=== PATIENT | male | born 1950 | race African-American/Black ===

== ENCOUNTER → 2017-07-15 | Outpatient (CLI) | payer OTHER ==
[2015-12-26 14:22] VITALS: BP 174/86
[~2017-07-15] MED LIST: NS 250 ML IV 250 ML IV ONE
[2017-07-15 10:36] LABS: CREATININE 1.03 mg/dL (0.70-1.30)
--- NOTE | 2017-07-15 11:44 | CT ---
History: Enlarged lymph nodes Study: CT neck soft tissue with contrast Findings: [address] imaging is performed from the mid brain through the aortic arch dur ing the intravenous administration of 100 milliliters of Omnipaque 350. Coronal and sagittal reformat armani images are submitted as well. Visualized brain parenchyma and orbital contents appear normal. Pos terior nasopharyngeal soft tissues, parotid and submandibular glands are normal in appearance. No mas ses or adenopathy are seen. A left-sided permanent cardiac pacemaker is in place. Superior mediastina l structures appear normal. Moderate to advanced spondylosis of the lower cervical spine is present. Impression: Normal CT neck soft tissues. Reported By:
== END ==
LOC: RAD 10:00
PROVIDERS: ATTEND Internal Medicine
DX: R59.1 Generalized enlarged lymph nodes (principal); R93.8 Abnormal findings on diagnostic imaging of other specified body structures; E11.9 Type 2 diabetes mellitus without complications
CPT/HCPCS: 36415; 70491; 82565; 84520; A4222

== ENCOUNTER 2022-10-28 16:05 | Inpatient (IN) ==
--- NOTE | 2022-10-28 16:27 | DR.URIAD ---
HPI Time Seen Time Seen by Provider: 10/28/22 16:26 PCP Primary Care Physician: Jigar Complaint Chief Complaint Doctors Comments: 72 y/o male presents for evaluation. Pt ill x few days, + cough, low grade temp. Spouse ill with same, tested + for Covid. Pt was treated with Paxlovid (not tested). Now with decreased urination for the past 6 hours. Having some low grade temps, dry cough, mild aches. + nausea, but no vomiting. Denies diarrhea or constipation. Chief Complaint:: diag with Covid and MDstarted treating him as well without a test being done, coughing since tuesday, congestion, nausea, but denies vomiting. Patient states he has not urinated since 12p today. Self Treatment fo Chief Complaint: Palovid COVID-19 Coronavirus risk:travel/contact w/high risk person: Yes Has patient experienced Coronavirus symptoms: Yes Coronavirus symptoms experienced: Coughing Reviewed Nurses Notes Reviewed: Yes Source History Provided: Patient and Family Member Mode of Arrival Mode of Arrival: Ambulatory Timing Onset of Chief Complaint: 10/24/22 PMH PMH Past Medical History: Yes Past Medical History: Anxiety, Coronary Artery Disease, Depression, Diabetes, Dyslipidemia, GERD and Hypertension Past Medical History Comment: Pacemaker, Glaucoma Past Surgical History: Yes Surgical History: Cholecystectomy and Tonsillectomy Past Surgical History Comment: Hernia Family History History of Family Medical Conditions: Yes Family Medical History: Diabetes Mellitus and Hypertension Social History Does patient currently use any type of tobacco product: No Have you used tobacco products in the last 12 months: No Type of Tobacco Use: None Does any household member use tobacco: No Alcohol Use: None Do you use any recreational Drugs:: No Lives With: Spouse Lives Where: Home Travel Risk Coronavirus risk:travel/contact w/high risk person: Yes Has patient experienced Coronavirus symptoms: Yes Coronavirus symptoms experienced: Coughing Infectious screening In the last 2 months have you had wt loss of >10#?: NO Have you had fever, night sweats or hemotysis?: No Have you traveled outside the country in the last 6 months?: No Isolation: Droplet ROS Review of Systems Constitutional: Fever and Weakness Eyes: No Symptoms Reported ENTM: No Symptoms Reported Respiratoy: Non-Productive Cough Cardiovascular: No Symptoms Reported Gastrointestinal/Abdominal: Nausea Genitourinary: Other (decreased urination today) Neurological: No Symptoms Reported Musculoskeletal: No Symptoms Reported Integumentary: No Symptoms Reported Hematologic/Lymphatic: No Symptoms Reported Psychiatric: No Symptoms Reported All Other Systems: Reviewed and Negative PE Vital Signs Vitals: Temperature 98.5 F Pulse Rate 75 Respiratory Rate 20 Blood Pressure 141/70 O2 Sat by Pulse Oximetry 99 General General Appearance: Alert and In No Apparent Distress Eyes Eye exam: PERRL and EOMI ENT ENT Exam: Mucous Membranes Moist Neck Neck Exam: Normal Inspection Respiratory Respiratory Exam: Normal Lung Sounds Bilat; negative Accessory Muscle Use or Respiratory Distress Cardiovascular Cardiovascular Exam: Regular Rate, Normal Rhythm and Normal Heart Sounds Abdominal Exam Abdominal Exam: Normal Inspection, Normal Bowel Sounds and Soft; negative Tenderness, Guarding or Rebound Extremeties Extremities Exam: Normal Inspection and Full ROM; negative Edema Neurologic Neurological Exam: Alert, Oriented X3 and CN II-XII Intact; negative Motor Sensory Deficit Psychiatric Psychiatric Exam: Normal Affect Skin Skin Exam: Warm and Dry COURSE Treatment Treatment: 72 y/o male, with probable covid, being treated with Paxlovid (high dose). Having nausea and decreased urination. Looks good. W/u initiated. Given IV fluids, IV zofran. 1800 - Sodium low at 119. WBC low at 3K. Pt is covid +. CXR without infiltrate, has elevated left hemidiaphragm. Pt was given one time dose of bebtelovimab prior to admitting. Discussed with Dr Wade, will admit for his hyponatremia. ROR Labs Reviewed Laboratory Results Reviewed?: Yes Result Diagrams: 10/28/22 16:46 10/28/22 16:46 Laboratory: WBC 3.0 X10^3/uL (3.6-10.0) L 10/28/22 16:46 RBC 4.88 X10^6/uL (4.7-6.0) 10/28/22 16:46 Hgb 14.8 g/dL (13.5-18.0) 10/28/22 16:46 Hct 42.2 % (42.0-54.0) 10/28/22 16:46 MCV 86.5 fL (80.0-100.0) 10/28/22 16:46 MCH 30.2 pg (27.0-34.0) 10/28/22 16:46 MCHC 35.0 g/dL (33.0-35.0) 10/28/22 16:46 RDW 13.4 % (11.6-16.5) 10/28/22 16:46 Plt Count 178 X10^3/uL (150.0-450.0) 10/28/22 16:46 MPV 8.0 fL (7.4-11.0) 10/28/22 16:46 Neut % (Auto) 50.2 % (42.0-75.0) 10/28/22 16:46 Lymph % (Auto) 32.2 % (21.0-51.0) 10/28/22 16:46 [place] % (Auto) 15.9 % (0.0-13.0) H 10/28/22 16:46 Eos % (Auto) 0.5 % (0.9-2.9) L 10/28/22 16:46 Baso % (Auto) 1.2 % (0.2-1.0) H 10/28/22 16:46 Neut # (Auto) 1.5 x10^3/uL (2.2-4.8) L 10/28/22 16:46 Lymph # (Auto) 1.0 X10^3/uL (1.3-2.9) L 10/28/22 16:46 [place] # (Auto) 0.5 x10^3/uL (0.3-0.8) 10/28/22 16:46 Eos # (Auto) 0.0 x10^3/uL (0.0-0.2) 10/28/22 16:46 Baso # (Auto) 0.0 X10^3/uL (0.0-0.1) 10/28/22 16:46 Absolute Nucleated RBC 0.0 /100WBC 10/28/22 16:46 Sodium 119 mmol/L (136-145) L* 10/28/22 16:46 Corrected Sodium 120 mmol/L (136-145) L 10/28/22 16:46 Potassium 3.8 mmol/L (3.5-5.1) 10/28/22 16:46 Chloride 83 mmol/L (98-107) L 10/28/22 16:46 Carbon Dioxide 29.3 mmol/L (21-32) 10/28/22 16:46 BUN 10 mg/dL (7-18) 10/28/22 16:46 Creatinine 0.72 mg/dL (0.70-1.30) 10/28/22 16:46 Est GFR (MDRD) Af Amer > 60 (>60) 10/28/22 16:46 Est GFR (MDRD) Non-Af > 60 (>60) 10/28/22 16:46 Glucose 123 mg/dL (65-99) H 10/28/22 16:46 Calcium 8.3 mg/dL (8.5-10.1) L 10/28/22 16:46 Corrected Calcium TNP 10/28/22 16:46 Total Bilirubin 0.40 mg/dL (0.2-1.0) 10/28/22 16:46 AST 42 Units/L (15-37) H 10/28/22 16:46 ALT 57 Units/L (12-78) 10/28/22 16:46 Alkaline Phosphatase 73 Units/L (46-116) 10/28/22 16:46 Total Protein 7.1 g/dL (6.4-8.2) 10/28/22 16:46 Albumin 3.5 g/dL (3.4-5.0) 10/28/22 16:46 Globulin 3.6 g/dL (2.5-4.5) 10/28/22 16:46 Albumin/Globulin Ratio 1.0 Ratio (1.1-2.1) L 10/28/22 16:46 SARS CoV-2 RNA Rapid JEANNETTE Positive (NEGATIVE) A 10/28/22 16:56 see comments in "Course" XRAY XRAY Interpreted by: Self X-ray Results: No acute abnormalities. + mild left hemidiaphragm Opioid Opioid Risk Tool Age ([place] box if 16-45): No History of Preadolescent Sexual Abuse: No Total: 0 Total Score Risk Category: Low Risk Copyright: Rehan SHEIKH predicting aberrant behaviors Discharge Plan Diagnosis Discharge Problem: Acute hyponatremia, COVID Discharge Plan Patient Disposition: 09 ADMITTED INPATIENT Condition: Stable Orders to Discharge Patient Discharge Orders: Transfer (Routine); Ordered 10/28/22 Ordered By: Abner Gomez
[2022-10-28] MEDS ORDERED: NS 500 ML IV 500 ML IV ONE ×2 (16:37→16:38)
[2022-10-28] MEDS ORDERED: ZOFRAN INJ 4 MG VIAL IVP ONE (16:39)
[2022-10-28] MEDS ORDERED: ZOFRAN INJ 4 MG VIAL ONE (16:50)
[2022-10-28 16:59] LABS: HEMOGLOBIN 14.8 g/dL (13.5-18.0); MEAN CORPUSCULAR HEMOGLOBIN 30.2 pg (27.0-34.0); MONOCYTES # (AUTO) 0.5 x10^3/uL (0.3-0.8)
[2022-10-28 17:04] LABS: BASOPHILS % (AUTO) 1.2 % (0.2-1.0); EOSINOPHILS % (AUTO) 0.5 % (0.9-2.9); HEMATOCRIT 42.2 % (42.0-54.0); LYMPHOCYTES % (AUTO) 32.2 % (21.0-51.0); MEAN CORPUSCULAR VOLUME 86.5 fL (80.0-100.0); MONOCYTES % (AUTO) 15.9 % (0.0-13.0); NEUTROPHILS # (AUTO) 1.5 x10^3/uL (2.2-4.8); NEUTROPHILS % (AUTO) 50.2 % (42.0-75.0); RED BLOOD COUNT 4.88 X10^6/uL (4.7-6.0); RED CELL DISTRIBUTION WIDTH 13.4 % (11.6-16.5)
[2022-10-28 17:09] LABS: ALANINE AMINOTRANSFERASE 57 Units/L (12-78); ALBUMIN 3.5 g/dL (3.4-5.0); ALKALINE PHOSPHATASE 73 Units/L (46-116); ASPARTATE AMINO TRANSFERASE 42 Units/L (15-37); BLOOD UREA NITROGEN 10 mg/dL (7-18); CALCIUM 8.3 mg/dL (8.5-10.1); CARBON DIOXIDE 29.3 mmol/L (21-32); CHLORIDE 83 mmol/L (98-107); COR NA(FOR HYPERGLY) 120 mmol/L (136-145); CREATININE 0.72 mg/dL (0.70-1.30); TOTAL PROTEIN 7.1 g/dL (6.4-8.2); eGFR NON BLACK RACES > 60 (>60)
[2022-10-28 17:12] LABS: SODIUM 119 mmol/L (136-145)
[2022-10-28] MEDS ORDERED: BEBTELOVIMAB INJ ONE (17:56)
[2022-10-28] MEDS: BEBTELOVIMAB INJ IVP ONE ×2 (18:03→18:04)
[2022-10-28] MEDS ORDERED: ULTRAM PO PRN (18:23)
[2022-10-28] MEDS ORDERED: NORCO 10/325 TAB PO PRN (18:23)
--- NOTE | 2022-10-28 18:36 | RAD ---
HISTORY:Cough, congestion, COVID-19 exposureStudy: Single view chestComparison:NoneFindings:No infiltrate, effusion, or pneumothorax identified .Cardiac and mediastinal contours are within normal limits .The soft tissues are intact .IMPRESSION:1.No acute cardiopulmonary abnormality.Electronically signed by: COLLETTE ACOSTA (Oct 28, 2022 18:35:47)
[2022-10-28] MEDS ORDERED: NS 1,000 ML IV 1,000 ML ONE (18:48)
[2022-10-28] MEDS: NS 1,000 ML IV 1,000 ML IV SCH (18:53)
[2022-10-28] MEDS ORDERED: RESTORIL CAP 30 MG PO SCH (21:00)
[2022-10-28] MEDS ORDERED: HYDROCHLOROTHIAZIDE 25 MG TAB PO SCH (21:00)
[2022-10-28] MEDS: REQUIP PO SCH (21:23)
[2022-10-28] MEDS: BENICAR TAB 40 MG PO SCH (21:24)
[2022-10-28] MEDS: PROCARDIA XL 24-hr PO SCH (21:24)
[2022-10-28] MEDS: CARAFATE PO SCH (21:25)
[2022-10-28] MEDS: REGLAN TAB 10 MG PO SCH (21:25)
[2022-10-28] MEDS: LANTUS SC SCH (21:26)
[2022-10-28] MEDS: GLUCOPHAGE PO SCH (21:35)
[2022-10-28] MEDS: XALATAN OP SCH (21:35)
[2022-10-28] MEDS ORDERED: RESTORIL CAP 15 MG PO ONE (21:51)
[2022-10-28] MEDS: ALPHAGAN 0.2% OPHTH SOLN OP SCH (21:57)
[2022-10-28 23:58] VITALS: BMI 27.1
[2022-10-29] MEDS: CARAFATE PO SCH ×4 (05:52→20:51)
[2022-10-29 06:24] LABS: BASOPHILS % (AUTO) 0.7 % (0.2-1.0); EOSINOPHILS % (AUTO) 0.8 % (0.9-2.9); HEMATOCRIT 41.2 % (42.0-54.0); HEMOGLOBIN 14.4 g/dL (13.5-18.0); LYMPHOCYTES # (AUTO) 1.3 X10^3/uL (1.3-2.9); LYMPHOCYTES % (AUTO) 37.2 % (21.0-51.0); MEAN CORPUSCULAR HEMOGLOBIN 29.9 pg (27.0-34.0); MEAN CORPUSCULAR HGB CONC 34.8 g/dL (33.0-35.0); MEAN PLATELET VOLUME 8.4 fL (7.4-11.0); MONOCYTES # (AUTO) 0.6 x10^3/uL (0.3-0.8); MONOCYTES % (AUTO) 16.9 % (0.0-13.0); NEUTROPHILS # (AUTO) 1.6 x10^3/uL (2.2-4.8); NEUTROPHILS % (AUTO) 44.4 % (42.0-75.0); RED BLOOD COUNT 4.79 X10^6/uL (4.7-6.0); RED CELL DISTRIBUTION WIDTH 13.3 % (11.6-16.5); WHITE BLOOD COUNT 3.5 X10^3/uL (3.6-10.0)
[2022-10-29 06:31] LABS: ALANINE AMINOTRANSFERASE 49 Units/L (12-78); ALBUMIN 3.2 g/dL (3.4-5.0); ALKALINE PHOSPHATASE 68 Units/L (46-116); ASPARTATE AMINO TRANSFERASE 35 Units/L (15-37); BLOOD UREA NITROGEN 8 mg/dL (7-18); CALCIUM 8.1 mg/dL (8.5-10.1); CARBON DIOXIDE 28.3 mmol/L (21-32); CHLORIDE 86 mmol/L (98-107); COR CA(FOR HYPOALB) 8.7 mg/dL (8.5-10.1); CREATININE 0.68 mg/dL (0.70-1.30); TOTAL PROTEIN 6.6 g/dL (6.4-8.2); eGFR NON BLACK RACES > 60 (>60)
[2022-10-29 06:51] LABS: SODIUM 120 mmol/L (136-145)
[2022-10-29] MEDS ORDERED: GLUCOPHAGE ONE (08:11)
[2022-10-29] MEDS ORDERED: SODIUM CHL HYPERTONIC ** 3% ** 500 ML IV ONE (09:00)
[2022-10-29] MEDS: NS 1,000 ML IV 1,000 ML IV SCH (09:13)
[2022-10-29] MEDS: ALPHAGAN 0.2% OPHTH SOLN OP SCH ×3 (09:14→20:52)
[2022-10-29] MEDS: WELLBUTRIN XL 300 MG (DAILY) PO SCH (09:27)
[2022-10-29] MEDS: BENICAR TAB 40 MG PO SCH ×2 (09:27→20:48)
[2022-10-29] MEDS: PROCARDIA XL 24-hr PO SCH ×2 (09:28→20:50)
[2022-10-29] MEDS: XANAX PO SCH (09:28)
[2022-10-29] MEDS: FLOMAX PO SCH (09:28)
[2022-10-29] MEDS: CARDURA PO SCH (09:28)
[2022-10-29] MEDS: LANTUS SC SCH ×2 (09:28→20:54)
[2022-10-29] MEDS: PriLOSEC PO SCH (09:28)
[2022-10-29] MEDS: FOLIC ACID TAB 1 MG PO SCH (09:28)
[2022-10-29] MEDS: CHRONULAC PO SCH (09:29)
[2022-10-29] MEDS: CATAPRES-TTS-3 TD SCH (10:10)
[2022-10-29] MEDS: GLUCOPHAGE PO SCH ×2 (10:11→20:51)
[2022-10-29] MEDS: NEBIVOLOL 20 MG PO SCH (10:11)
[2022-10-29] MEDS: RESTORIL CAP 15 MG PO SCH (20:49)
[2022-10-29] MEDS: REQUIP PO SCH (20:49)
[2022-10-29] MEDS: REGLAN TAB 10 MG PO SCH (20:50)
[2022-10-29] MEDS: XALATAN OP SCH (20:52)
[2022-10-30] MEDS: CARAFATE PO SCH ×4 (05:37→21:01)
[2022-10-30 06:32] LABS: BASOPHILS % (AUTO) 0.8 % (0.2-1.0); EOSINOPHILS % (AUTO) 0.7 % (0.9-2.9); HEMATOCRIT 41.2 % (42.0-54.0); HEMOGLOBIN 14.2 g/dL (13.5-18.0); LYMPHOCYTES % (AUTO) 32.9 % (21.0-51.0); MEAN CORPUSCULAR HEMOGLOBIN 30.2 pg (27.0-34.0); MEAN CORPUSCULAR HGB CONC 34.4 g/dL (33.0-35.0); MEAN CORPUSCULAR VOLUME 87.8 fL (80.0-100.0); MEAN PLATELET VOLUME 8.3 fL (7.4-11.0); MONOCYTES # (AUTO) 0.6 x10^3/uL (0.3-0.8); MONOCYTES % (AUTO) 18.7 % (0.0-13.0); NEUTROPHILS # (AUTO) 1.5 x10^3/uL (2.2-4.8); NEUTROPHILS % (AUTO) 46.9 % (42.0-75.0); RED BLOOD COUNT 4.69 X10^6/uL (4.7-6.0); RED CELL DISTRIBUTION WIDTH 13.3 % (11.6-16.5); WHITE BLOOD COUNT 3.1 X10^3/uL (3.6-10.0)
[2022-10-30 06:52] LABS: ALANINE AMINOTRANSFERASE 43 Units/L (12-78); ALBUMIN 3.1 g/dL (3.4-5.0); ALKALINE PHOSPHATASE 62 Units/L (46-116); ASPARTATE AMINO TRANSFERASE 31 Units/L (15-37); BLOOD UREA NITROGEN 11 mg/dL (7-18); CARBON DIOXIDE 25.2 mmol/L (21-32); CHLORIDE 92 mmol/L (98-107); COR CA(FOR HYPOALB) 8.7 mg/dL (8.5-10.1); CREATININE 0.61 mg/dL (0.70-1.30); TOTAL PROTEIN 6.2 g/dL (6.4-8.2); eGFR NON BLACK RACES > 60 (>60)
[2022-10-30 06:57] LABS: SODIUM 125 mmol/L (136-145)
[2022-10-30] MEDS ORDERED: GLUCOPHAGE ONE ×2 (08:16→20:40)
[2022-10-30] MEDS: NEBIVOLOL 20 MG PO SCH (08:52)
[2022-10-30] MEDS: GLUCOPHAGE PO SCH (09:26)
[2022-10-30] MEDS: PriLOSEC PO SCH (09:31)
[2022-10-30] MEDS: PROCARDIA XL 24-hr PO SCH ×2 (09:31→21:01)
[2022-10-30] MEDS: FLOMAX PO SCH (09:31)
[2022-10-30] MEDS: CHRONULAC PO SCH (09:31)
[2022-10-30] MEDS: BENICAR TAB 40 MG PO SCH ×2 (09:31→21:00)
[2022-10-30] MEDS: WELLBUTRIN XL 300 MG (DAILY) PO SCH (09:31)
[2022-10-30] MEDS: XANAX PO SCH (09:31)
[2022-10-30] MEDS: CARDURA PO SCH (09:32)
[2022-10-30] MEDS: FOLIC ACID TAB 1 MG PO SCH (09:32)
[2022-10-30] MEDS: ALPHAGAN 0.2% OPHTH SOLN OP SCH ×2 (09:32→21:04)
[2022-10-30] MEDS: LANTUS SC SCH ×2 (09:32→21:02)
[2022-10-30] MEDS: CATAPRES-TTS-3 TD SCH (09:53)
[2022-10-30] MEDS: NS 1,000 ML IV 1,000 ML IV SCH ×3 (10:21→21:06)
--- NOTE | 2022-10-30 11:33 | DR.H&P ---
H&P History & Physical for Day of: H&P Date: 10/29/22 Chief Complaint Chief Complaint: Cough, fever, Decreased appetite Weakness Allergies Allergies Allergy/AdvReac Type Severity Reaction Status Date / Time MS Penicillins [Penicillins] Allergy Verified 10/29/22 11:18 MS Sulfur [Sulfur] Allergy Verified 10/29/22 11:18 Penicillins Allergy Verified 10/29/22 11:18 Sulfa (Sulfonamide Allergy Verified 10/29/22 11:18 Antibiotics) [SULFA] History of Present Illness History of Present Illness: Pt is a 72 year old male presenting after having [facility] outpatient treatment for COVID-19. He reports cough, low grade temp, decreased appetite, and generalized weakness. He admits to decreased fluid intake and had decreased urination for the past 6 hours. Denies abdominal pain vomiting, diarrhea, or constipation. He was taking paxlovid with improvement in symptoms. Labs/imaging: Wbc 3.5, Hgb 14.4, Plt 178, Na 120, K 3.6, Creatinine 0.68, Glucose 104, CXR: no acute cardiopulmonary findings. Pt admitted for COVID-19, hyponatremia, dehydration. Will give monoclonal antibody infusion and start on IVF NS@80ml/h. Restart home medications. Continue to closely monitor and follow up labs in the morning. Past Medical History Past Medical History: Anxiety, Coronary Artery Disease, Depression, Diabetes, Dyslipidemia, GERD and Hypertension Past Surgical History Surgical History: Cholecystectomy, Tonsillectomy and Other Family History Family Medical History: Diabetes Mellitus and Hypertension Social History Does patient currently use any type of tobacco product: No Have you used tobacco products in the last 12 months: No Type of Tobacco Use: None Does any household member use tobacco: No Alcohol Use: None Drug Use: None Medications Home Medications: MS Penicillins [Penicillins] Allergy (Verified 10/29/22 11:18) MS Sulfur [Sulfur] Allergy (Verified 10/29/22 11:18) Penicillins Allergy (Verified 10/29/22 11:18) Sulfa (Sulfonamide Antibiotics) [SULFA] Allergy (Verified 10/29/22 11:18) CONTINUE taking the following medications alprazolam 0.25 mg tablet 1 tab PO QDAY 10/28/22 [History] brimonidine 0.2 % eye drops 1 drp ophthalmic (eye) BID 10/28/22 [History] bupropion HCl 300 mg 24 hr tablet, extended release 1 tab PO QDAY 10/28/22 [History] clonidine 0.3 mg/24 hr weekly transdermal patch 1 patch QWEEK 10/28/22 [History] cyanocobalamin (vitamin B-12) 1,000 mcg/mL injection solution 1 ml IM QWEEK 10/28/22 [History] doxazosin 2 mg tablet 1 tab PO QDAY 10/28/22 [History] folic acid 1 mg tablet 1 tab PO QDAY 10/28/22 [History] hydrocodone 10 mg-acetaminophen 325 mg tablet 1 tab PO QID PRN pain 10/28/22 [History] insulin glargine 100 unit/mL (3 mL) subcutaneous pen (Lantus Solostar U-100 Insulin) 30 unit subcut BID 10/28/22 [History] lactulose 10 gram/15 mL oral solution 45 ml PO QDAY 10/28/22 [History] latanoprost 0.005 % eye drops 1 drp ophthalmic (eye) QPM 10/28/22 [History] metformin 500 mg tablet 1 tab PO BID 10/28/22 [History] metoclopramide HCl 10 mg tablet 1 tab PO QPM 10/28/22 [History] nebivolol 20 mg tablet 1 tab PO QDAY 10/28/22 [History] nifedipine 60 mg tablet,extended release 1 tab PO BID 10/28/22 [History] nirmatrelvir 300 mg (150 mg x2)-ritonavir 100 mg tablet,dose pack(EUA) (Paxlo vid) 3 tab PO BID 10/28/22 [History] olmesartan 40 mg-hydrochlorothiazide 25 mg tablet 1 tab PO BID 10/28/22 [History] omeprazole 40 mg capsule,delayed release 1 cap PO QDAY 10/28/22 [History] ropinirole 1 mg tablet 1 - 2 tab PO QPM 10/28/22 [History] semaglutide 1 mg/dose (4 mg/3 mL) subcutaneous pen injector (Ozempic) 1 mg subcut QWEEK 10/28/22 [History] sucralfate 1 gram tablet 0.5 tab PO QID 10/28/22 [History] tamsulosin 0.4 mg capsule 1 cap PO QDAY 10/28/22 [History] temazepam 30 mg capsule 1 cap PO QPM 10/28/22 [History] tramadol 50 mg tablet 1 tab PO QDAY PRN 10/28/22 [History] Labs Result Diagrams: 10/30/22 05:30 10/30/22 05:30 Labs: Laboratory WBC 3.1 X10^3/uL (3.6-10.0) L 10/30/22 05:30 RBC 4.69 X10^6/uL (4.7-6.0) L 10/30/22 05:30 Hgb 14.2 g/dL (13.5-18.0) 10/30/22 05:30 Hct 41.2 % (42.0-54.0) L 10/30/22 05:30 MCV 87.8 fL (80.0-100.0) 10/30/22 05:30 MCH 30.2 pg (27.0-34.0) 10/30/22 05:30 MCHC 34.4 g/dL (33.0-35.0) 10/30/22 05:30 RDW 13.3 % (11.6-16.5) 10/30/22 05:30 Plt Count 169 X10^3/uL (150.0-450.0) 10/30/22 05:30 MPV 8.3 fL (7.4-11.0) 10/30/22 05:30 Neut % (Auto) 46.9 % (42.0-75.0) 10/30/22 05:30 Lymph % (Auto) 32.9 % (21.0-51.0) 10/30/22 05:30 [place] % (Auto) 18.7 % (0.0-13.0) H 10/30/22 05:30 Eos % (Auto) 0.7 % (0.9-2.9) L 10/30/22 05:30 Baso % (Auto) 0.8 % (0.2-1.0) 10/30/22 05:30 Neut # (Auto) 1.5 x10^3/uL (2.2-4.8) L 10/30/22 05:30 Lymph # (Auto) 1.0 X10^3/uL (1.3-2.9) L 10/30/22 05:30 [place] # (Auto) 0.6 x10^3/uL (0.3-0.8) 10/30/22 05:30 Eos # (Auto) 0.0 x10^3/uL (0.0-0.2) 10/30/22 05:30 Baso # (Auto) 0.0 X10^3/uL (0.0-0.1) 10/30/22 05:30 Absolute Nucleated RBC 0.1 /100WBC 10/30/22 05:30 Sodium 125 mmol/L (136-145) L* 10/30/22 05:30 Corrected Sodium TNP 10/30/22 05:30 Potassium 3.6 mmol/L (3.5-5.1) 10/30/22 05:30 Chloride 92 mmol/L (98-107) L 10/30/22 05:30 Carbon Dioxide 25.2 mmol/L (21-32) 10/30/22 05:30 BUN 11 mg/dL (7-18) 10/30/22 05:30 Creatinine 0.61 mg/dL (0.70-1.30) L 10/30/22 05:30 Est GFR (MDRD) Af Amer > 60 (>60) 10/30/22 05:30 Est GFR (MDRD) Non-Af > 60 (>60) 10/30/22 05:30 Glucose 80 mg/dL (65-99) 10/30/22 05:30 POC Glucose (mg/dL) 112 mg/dL (65-99) H 10/29/22 05:39 Calcium 8.0 mg/dL (8.5-10.1) L 10/30/22 05:30 Corrected Calcium 8.7 mg/dL (8.5-10.1) 10/30/22 05:30 Total Bilirubin 0.30 mg/dL (0.2-1.0) 10/30/22 05:30 AST 31 Units/L (15-37) 10/30/22 05:30 ALT 43 Units/L (12-78) 10/30/22 05:30 Alkaline Phosphatase 62 Units/L (46-116) 10/30/22 05:30 Total Protein 6.2 g/dL (6.4-8.2) L 10/30/22 05:30 Albumin 3.1 g/dL (3.4-5.0) L 10/30/22 05:30 Globulin 3.1 g/dL (2.5-4.5) 10/30/22 05:30 Albumin/Globulin Ratio 1.0 Ratio (1.1-2.1) L 10/30/22 05:30 SARS CoV-2 RNA Rapid JEANNETTE Positive (NEGATIVE) A 10/28/22 16:56 Review of Systems Constitutional: Fever, Chills and Weakness Eyes: No Symptoms Reported ENT: No Symptoms Reported Respiratory: Cough Cardiovascular: No Symptoms Reported Gastrointestinal: No Symptoms Reported Genitourinary: No Symptoms Reported Musculoskeletal: No Symptoms Reported Skin: No Symptoms Reported Neurological: No Symptoms Reported Physical Exam Vital Signs: Temperature 97.9 F Pulse Rate [Radial] 78 Pulse Rate 74 Respiratory Rate 18 Blood Pressure [Left Arm] 127/59 Blood Pressure 141/70 O2 Sat by Pulse Oximetry 99 Oriented: Normal Eyes: Normal Ear: Normal Nose: Normal Throat: Normal Respiratory: Clear Throughout Cardiovascular: Normal : Normal Auscultation: Bowel Sounds: Normal Palpation: Normal Tenderness: Normal Skin: Normal Musculoskeletal: Normal Psychiatric: Normal Mood Description: Calm and Appropriate Affect: Normal Speech Pattern: Clear and Appropriate Assessment/Plan (1) COVID: Status: Acute (2) Acute hyponatremia: Status: Acute (3) Dehydration: Status: Acute Review H&P Reviewed: Yes Patient was examined?: Yes
--- NOTE | 2022-10-30 11:49 | PCM.PROG ---
Progress Note Progress Note for Day of Date of Exam: 10/30/22 Subjective Subjective: Pt is a 72 year old male admitted after failing outpatient treatment for COVID-19, with hyponatremia and dehydration. This morning he reports improvement in his symptoms. No acute events overnight. He received monoclonal antibody infusion yesterday. Labs/imaging: Wbc 3.1, Hgb 14.2, Plt 169, Na 125, K 3.6, Creatinine 0.61, Glucose 80, CXR: no acute cardiopulmonary findings. Hyponatremia gradually improving and patient appetite has improved. Will increase IVF NS to 125ml/h. Home medications have been resumed. Otherwise will continue with current treatment plan. Continue to closely monitor and follow up labs in the morning. Past Medical Family Social History Allergies: Allergies MS Penicillins [Penicillins] Allergy (Verified 10/29/22 11:18) MS Sulfur [Sulfur] Allergy (Verified 10/29/22 11:18) Penicillins Allergy (Verified 10/29/22 11:18) Sulfa (Sulfonamide Antibiotics) [SULFA] Allergy (Verified 10/29/22 11:18) Review of Systems ROS: No change since H&P Vital Signs and I&O's Vital Signs: Temperature 97.9 F Pulse Rate [Radial] 78 Pulse Rate 74 Respiratory Rate 18 Blood Pressure [Left Arm] 127/59 Blood Pressure 141/70 O2 Sat by Pulse Oximetry 99 Intake and Output: Intake & Output 10/27/22 10/28/22 10/29/22 10/30/22 23:59 23:59 23:59 23:59 Intake Total 480 / 480 2089 1110 / 1110 Balance 480 / 480 2089 1110 / 1110 Physical Exam Oriented: Normal Eyes: Normal Ear: Normal Nose: Normal Throat: Normal Cardiovascular: Normal : Normal Auscultation: Bowel Sounds: Normal Tenderness: Normal Skin: Normal Musculoskeletal: Normal Psychiatric: Normal Mood Description: Calm and Appropriate Affect: Normal Speech Pattern: Clear and Appropriate Laboratory and Diagnostics Result Diagrams: 10/30/22 05:30 10/30/22 05:30 Labs: Laboratory WBC 3.1 X10^3/uL (3.6-10.0) L 10/30/22 05:30 RBC 4.69 X10^6/uL (4.7-6.0) L 10/30/22 05:30 Hgb 14.2 g/dL (13.5-18.0) 10/30/22 05:30 Hct 41.2 % (42.0-54.0) L 10/30/22 05:30 MCV 87.8 fL (80.0-100.0) 10/30/22 05:30 MCH 30.2 pg (27.0-34.0) 10/30/22 05:30 MCHC 34.4 g/dL (33.0-35.0) 10/30/22 05:30 RDW 13.3 % (11.6-16.5) 10/30/22 05:30 Plt Count 169 X10^3/uL (150.0-450.0) 10/30/22 05:30 MPV 8.3 fL (7.4-11.0) 10/30/22 05:30 Neut % (Auto) 46.9 % (42.0-75.0) 10/30/22 05:30 Lymph % (Auto) 32.9 % (21.0-51.0) 10/30/22 05:30 [place] % (Auto) 18.7 % (0.0-13.0) H 10/30/22 05:30 Eos % (Auto) 0.7 % (0.9-2.9) L 10/30/22 05:30 Baso % (Auto) 0.8 % (0.2-1.0) 10/30/22 05:30 Neut # (Auto) 1.5 x10^3/uL (2.2-4.8) L 10/30/22 05:30 Lymph # (Auto) 1.0 X10^3/uL (1.3-2.9) L 10/30/22 05:30 [place] # (Auto) 0.6 x10^3/uL (0.3-0.8) 10/30/22 05:30 Eos # (Auto) 0.0 x10^3/uL (0.0-0.2) 10/30/22 05:30 Baso # (Auto) 0.0 X10^3/uL (0.0-0.1) 10/30/22 05:30 Absolute Nucleated RBC 0.1 /100WBC 10/30/22 05:30 Sodium 125 mmol/L (136-145) L* 10/30/22 05:30 Corrected Sodium TNP 10/30/22 05:30 Potassium 3.6 mmol/L (3.5-5.1) 10/30/22 05:30 Chloride 92 mmol/L (98-107) L 10/30/22 05:30 Carbon Dioxide 25.2 mmol/L (21-32) 10/30/22 05:30 BUN 11 mg/dL (7-18) 10/30/22 05:30 Creatinine 0.61 mg/dL (0.70-1.30) L 10/30/22 05:30 Est GFR (MDRD) Af Amer > 60 (>60) 10/30/22 05:30 Est GFR (MDRD) Non-Af > 60 (>60) 10/30/22 05:30 Glucose 80 mg/dL (65-99) 10/30/22 05:30 POC Glucose (mg/dL) 112 mg/dL (65-99) H 10/29/22 05:39 Calcium 8.0 mg/dL (8.5-10.1) L 10/30/22 05:30 Corrected Calcium 8.7 mg/dL (8.5-10.1) 10/30/22 05:30 Total Bilirubin 0.30 mg/dL (0.2-1.0) 10/30/22 05:30 AST 31 Units/L (15-37) 10/30/22 05:30 ALT 43 Units/L (12-78) 10/30/22 05:30 Alkaline Phosphatase 62 Units/L (46-116) 10/30/22 05:30 Total Protein 6.2 g/dL (6.4-8.2) L 10/30/22 05:30 Albumin 3.1 g/dL (3.4-5.0) L 10/30/22 05:30 Globulin 3.1 g/dL (2.5-4.5) 10/30/22 05:30 Albumin/Globulin Ratio 1.0 Ratio (1.1-2.1) L 10/30/22 05:30 SARS CoV-2 RNA Rapid JEANNETTE Positive (NEGATIVE) A 10/28/22 16:56 Plan (1) COVID: Status: Acute (2) Acute hyponatremia: Status: Acute (3) Dehydration: Status: Acute
[2022-10-30] MEDS: REGLAN TAB 10 MG PO SCH (21:00)
[2022-10-30] MEDS: RESTORIL CAP 15 MG PO SCH (21:00)
[2022-10-30] MEDS: REQUIP PO SCH (21:00)
[2022-10-30] MEDS: XALATAN OP SCH (21:05)
[2022-10-31] MEDS: GLUCOPHAGE PO SCH ×2 (03:38→10:41)
[2022-10-31] MEDS: NS 1,000 ML IV 1,000 ML IV SCH ×2 (03:38→05:46)
[2022-10-31 05:44] LABS: BASOPHILS % (AUTO) 0.8 % (0.2-1.0); EOSINOPHILS % (AUTO) 0.2 % (0.9-2.9); HEMATOCRIT 41.3 % (42.0-54.0); HEMOGLOBIN 14.3 g/dL (13.5-18.0); LYMPHOCYTES # (AUTO) 0.6 X10^3/uL (1.3-2.9); LYMPHOCYTES % (AUTO) 17.6 % (21.0-51.0); MEAN CORPUSCULAR HGB CONC 34.6 g/dL (33.0-35.0); MEAN CORPUSCULAR VOLUME 86.8 fL (80.0-100.0); MEAN PLATELET VOLUME 7.9 fL (7.4-11.0); MONOCYTES # (AUTO) 0.4 x10^3/uL (0.3-0.8); MONOCYTES % (AUTO) 11.7 % (0.0-13.0); NEUTROPHILS # (AUTO) 2.5 x10^3/uL (2.2-4.8); NEUTROPHILS % (AUTO) 69.7 % (42.0-75.0); RED BLOOD COUNT 4.75 X10^6/uL (4.7-6.0); RED CELL DISTRIBUTION WIDTH 13.4 % (11.6-16.5); WHITE BLOOD COUNT 3.5 X10^3/uL (3.6-10.0)
[2022-10-31] MEDS: CARAFATE PO SCH (05:45)
[2022-10-31 05:58] LABS: ALANINE AMINOTRANSFERASE 45 Units/L (12-78); ALKALINE PHOSPHATASE 61 Units/L (46-116); ASPARTATE AMINO TRANSFERASE 26 Units/L (15-37); BLOOD UREA NITROGEN 7 mg/dL (7-18); CALCIUM 7.7 mg/dL (8.5-10.1); CARBON DIOXIDE 27.8 mmol/L (21-32); CHLORIDE 98 mmol/L (98-107); COR CA(FOR HYPOALB) 8.5 mg/dL (8.5-10.1); CREATININE 0.56 mg/dL (0.70-1.30); SODIUM 132 mmol/L (136-145); TOTAL PROTEIN 6.1 g/dL (6.4-8.2); eGFR NON BLACK RACES > 60 (>60)
[2022-10-31] MEDS: PROCARDIA XL 24-hr PO SCH (08:36)
[2022-10-31] MEDS: XANAX PO SCH (08:36)
[2022-10-31] MEDS: PriLOSEC PO SCH (08:36)
[2022-10-31] MEDS: CARDURA PO SCH (08:36)
[2022-10-31] MEDS: FOLIC ACID TAB 1 MG PO SCH (08:36)
[2022-10-31] MEDS: BENICAR TAB 40 MG PO SCH (08:36)
[2022-10-31] MEDS: FLOMAX PO SCH (08:36)
[2022-10-31] MEDS: LANTUS SC SCH (08:37)
[2022-10-31] MEDS: WELLBUTRIN XL 300 MG (DAILY) PO SCH (08:37)
[2022-10-31] MEDS: NEBIVOLOL 20 MG PO SCH (08:39)
[2022-10-31] MEDS: CHRONULAC PO SCH (08:40)
[2022-10-31] MEDS: ALPHAGAN 0.2% OPHTH SOLN OP SCH (08:46)
[2022-10-31 10:02] VITALS: BP 178/79
--- NOTE | 2022-10-31 11:02 | W.DIS.FURT ---
Summary of Discharge Discharge Summary of Date Date of Exam: 10/31/22 Admission Date Date of Admission: 10/28/22 Admission Diagnosis Patient Problems (Updated 10/29/22 @ 11:18 by Jessica Thomas) Gastroenteritis (Acute) K52.9 Nausea & vomiting (Acute) R11.2 Hospital Course: Pt is a 72 year old male admitted after failing outpatient treatment for COVID- 19, with hyponatremia and dehydration. His hospital/treatment course included:receiving monoclonal antibody infusion, IVF NS to 125 ml/h, and home medications. Labs/imaging: Wbc 3.5, Hgb 14.3, Plt 177, Na 132, K 3.5, Creatinine 0.56, Glucose 55, CXR: no acute cardiopulmonary findings. Hyponatremia significantly improved close to normal range. Strength and appetite back to normal. Pt discharged in stable condition. Instructed to follow up with pcp in 1 week. Vital Signs: Vital Signs (72 hours) 10/28/22 16:07 10/28/22 18:24 10/28/22 20:00 Temperature 98.5 F 98.5 F Pulse Rate 75 Pulse Rate [Radial] Respiratory Rate 20 20 20 Blood Pressure 141/70 Blood Pressure [Left Arm] 158/74 O2 Sat by Pulse Oximetry 99 96 Oxygen Delivery Method Room Air Oxygen Flow Rate FIO2% 10/28/22 20:00 10/28/22 20:30 10/29/22 00:04 Temperature 98.5 F Pulse Rate Pulse Rate [Radial] Respiratory Rate 20 Blood Pressure Blood Pressure [Left Arm] 158/74 O2 Sat by Pulse Oximetry 96 Oxygen Delivery Method Room Air Nasal Cannula Oxygen Flow Rate 2 FIO2% 28 10/29/22 00:00 10/29/22 04:00 10/29/22 09:12 Temperature 98.3 F 98.3 F Pulse Rate Pulse Rate [Radial] Respiratory Rate 20 20 Blood Pressure Blood Pressure [Left Arm] 133/65 127/69 O2 Sat by Pulse Oximetry 97 99 Oxygen Delivery Method Nasal Cannula Nasal Cannula Oxygen Flow Rate 2 2 FIO2% 28 10/29/22 09:12 10/29/22 07:00 10/29/22 08:00 Temperature 97.9 F Pulse Rate 70 Pulse Rate [Radial] 70 Respiratory Rate 20 Blood Pressure Blood Pressure [Left Arm] 132/64 O2 Sat by Pulse Oximetry 97 99 Oxygen Delivery Method Room Air Nasal Cannula Oxygen Flow Rate 2 FIO2% 10/29/22 12:00 10/29/22 16:00 10/29/22 19:00 Temperature 98.3 F 98.4 F Pulse Rate Pulse Rate [Radial] 84 86 Respiratory Rate 18 20 Blood Pressure Blood Pressure [Left Arm] 124/60 136/68 O2 Sat by Pulse Oximetry 100 100 Oxygen Delivery Method Nasal Cannula Nasal Cannula Nasal Cannula Oxygen Flow Rate 2 2 FIO2% 10/29/22 20:08 10/29/22 20:08 10/29/22 20:00 Temperature 98.1 F Pulse Rate 74 Pulse Rate [Radial] 75 Respiratory Rate 20 Blood Pressure Blood Pressure [Left Arm] 112/53 O2 Sat by Pulse Oximetry 96 99 Oxygen Delivery Method Nasal Cannula Nasal Cannula Oxygen Flow Rate 2 2 FIO2% 28 10/30/22 00:00 10/30/22 04:00 10/30/22 08:00 Temperature 97.8 F 97.5 F L 97.9 F Pulse Rate Pulse Rate [Radial] 77 77 78 Respiratory Rate 18 18 18 Blood Pressure Blood Pressure [Left Arm] 130/60 124/58 127/59 O2 Sat by Pulse Oximetry 100 100 99 Oxygen Delivery Method Nasal Cannula Nasal Cannula Nasal Cannula Oxygen Flow Rate 2 2 2 FIO2% 10/30/22 07:00 10/30/22 09:35 10/30/22 12:00 Temperature 97.7 F Pulse Rate Pulse Rate [Radial] 78 Respiratory Rate 18 Blood Pressure Blood Pressure [Left Arm] 132/61 O2 Sat by Pulse Oximetry 99 Oxygen Delivery Method Nasal Cannula Nasal Cannula Nasal Cannula Oxygen Flow Rate 2 2 2 FIO2% 28 10/30/22 15:58 10/30/22 17:49 10/30/22 19:00 Temperature 98.3 F Pulse Rate Pulse Rate [Radial] 78 Respiratory Rate 18 Blood Pressure Blood Pressure [Left Arm] 129/62 O2 Sat by Pulse Oximetry 99 Oxygen Delivery Method Nasal Cannula Nasal Cannula Nasal Cannula Oxygen Flow Rate 2 2 2 FIO2% 28 10/30/22 20:00 10/31/22 00:00 10/31/22 04:00 Temperature 98.5 F 98.4 F 97.9 F Pulse Rate Pulse Rate [Radial] 85 83 78 Respiratory Rate 20 20 18 Blood Pressure Blood Pressure [Left Arm] 135/66 128/58 136/62 O2 Sat by Pulse Oximetry 99 99 99 Oxygen Delivery Method Nasal Cannula Nasal Cannula Nasal Cannula Oxygen Flow Rate 2 2 2 FIO2% 10/31/22 07:00 10/31/22 08:00 Temperature 98.0 F Pulse Rate Pulse Rate [Radial] 106 H Respiratory Rate 20 Blood Pressure Blood Pressure [Left Arm] 178/79 O2 Sat by Pulse Oximetry 98 Oxygen Delivery Method Nasal Cannula Oxygen Flow Rate 2 2 FIO2% Labs: Laboratory Last Values WBC 3.5 X10^3/uL (3.6-10.0) L 10/31/22 05:00 RBC 4.75 X10^6/uL (4.7-6.0) 10/31/22 05:00 Hgb 14.3 g/dL (13.5-18.0) 10/31/22 05:00 Hct 41.3 % (42.0-54.0) L 10/31/22 05:00 MCV 86.8 fL (80.0-100.0) 10/31/22 05:00 MCH 30.0 pg (27.0-34.0) 10/31/22 05:00 MCHC 34.6 g/dL (33.0-35.0) 10/31/22 05:00 RDW 13.4 % (11.6-16.5) 10/31/22 05:00 Plt Count 177 X10^3/uL (150.0-450.0) 10/31/22 05:00 MPV 7.9 fL (7.4-11.0) 10/31/22 05:00 Neut % (Auto) 69.7 % (42.0-75.0) 10/31/22 05:00 Lymph % (Auto) 17.6 % (21.0-51.0) L 10/31/22 05:00 Morton % (Auto) 11.7 % (0.0-13.0) 10/31/22 05:00 Eos % (Auto) 0.2 % (0.9-2.9) L 10/31/22 05:00 Baso % (Auto) 0.8 % (0.2-1.0) 10/31/22 05:00 Neut # (Auto) 2.5 x10^3/uL (2.2-4.8) 10/31/22 05:00 Lymph # (Auto) 0.6 X10^3/uL (1.3-2.9) L 10/31/22 05:00 Morton # (Auto) 0.4 x10^3/uL (0.3-0.8) 10/31/22 05:00 Eos # (Auto) 0.0 x10^3/uL (0.0-0.2) 10/31/22 05:00 Baso # (Auto) 0.0 X10^3/uL (0.0-0.1) 10/31/22 05:00 Absolute Nucleated RBC 0.0 /100WBC 10/31/22 05:00 Sodium 132 mmol/L (136-145) L 10/31/22 05:00 Corrected Sodium TNP 10/31/22 05:00 Potassium 3.5 mmol/L (3.5-5.1) 10/31/22 05:00 Chloride 98 mmol/L (98-107) 10/31/22 05:00 Carbon Dioxide 27.8 mmol/L (21-32) 10/31/22 05:00 BUN 7 mg/dL (7-18) 10/31/22 05:00 Creatinine 0.56 mg/dL (0.70-1.30) L 10/31/22 05:00 Est GFR (MDRD) Af Amer > 60 (>60) 10/31/22 05:00 Est GFR (MDRD) Non-Af > 60 (>60) 10/31/22 05:00 Glucose 55 mg/dL (65-99) L 10/31/22 05:00 POC Glucose (mg/dL) 112 mg/dL (65-99) H 10/29/22 05:39 Calcium 7.7 mg/dL (8.5-10.1) L 10/31/22 05:00 Corrected Calcium 8.5 mg/dL (8.5-10.1) 10/31/22 05:00 Total Bilirubin 0.20 mg/dL (0.2-1.0) 10/31/22 05:00 AST 26 Units/L (15-37) 10/31/22 05:00 ALT 45 Units/L (12-78) 10/31/22 05:00 Alkaline Phosphatase 61 Units/L (46-116) 10/31/22 05:00 Total Protein 6.1 g/dL (6.4-8.2) L 10/31/22 05:00 Albumin 3.0 g/dL (3.4-5.0) L 10/31/22 05:00 Globulin 3.1 g/dL (2.5-4.5) 10/31/22 05:00 Albumin/Globulin Ratio 1.0 Ratio (1.1-2.1) L 10/31/22 05:00 SARS CoV-2 RNA Rapid JEANNETTE Positive (NEGATIVE) A 10/28/22 16:56 Reason For Visit: ACUTE HYPONATREMIA, COVID Discharge Date Discharge Date: 10/31/22 Discharge Diagnosis All Active Problems (Updated 10/29/22 @ 11:18 by Jessica Thomas) Gastroenteritis (Acute) Nausea & vomiting (Acute) Abdominal pain (Acute) Dehydration (Acute) Acute hyponatremia (Acute) COVID (Acute) Plan of Treatment: Continue with present treatment and follow up plan. Pt is to keep follow up appointment as instructed and take medications as ordered. Discharge Medications Discharge Medications: Penicillins Allergy (Verified 10/31/22 02:17) Sulfa (Sulfonamide Antibiotics) [SULFA] Allergy (Verified 10/31/22 02:17) CONTINUE taking the following medications alprazolam 0.25 mg tablet 1 tab PO QDAY 10/28/22 [History] brimonidine 0.2 % eye drops 1 drp ophthalmic (eye) BID 10/28/22 [History] bupropion HCl 300 mg 24 hr tablet, extended release 1 tab PO QDAY 10/28/22 [History] clonidine 0.3 mg/24 hr weekly transdermal patch 1 patch QWEEK 10/28/22 [History] cyanocobalamin (vitamin B-12) 1,000 mcg/mL injection solution 1 ml IM QWEEK 10/28/22 [History] doxazosin 2 mg tablet 1 tab PO QDAY 10/28/22 [History] folic acid 1 mg tablet 1 tab PO QDAY 10/28/22 [History] hydrocodone 10 mg-acetaminophen 325 mg tablet 1 tab PO QID PRN pain 10/28/22 [History] insulin glargine 100 unit/mL (3 mL) subcutaneous pen (Lantus Solostar U-100 Insulin) 30 unit subcut BID 10/28/22 [History] lactulose 10 gram/15 mL oral solution 45 ml PO QDAY 10/28/22 [History] latanoprost 0.005 % eye drops 1 drp ophthalmic (eye) QPM 10/28/22 [History] metformin 500 mg tablet 1 tab PO BID 10/28/22 [History] metoclopramide HCl 10 mg tablet 1 tab PO QPM 10/28/22 [History] nebivolol 20 mg tablet 1 tab PO QDAY 10/28/22 [History] nifedipine 60 mg tablet,extended release 1 tab PO BID 10/28/22 [History] olmesartan 40 mg-hydrochlorothiazide 25 mg tablet 1 tab PO BID 10/28/22 [History] omeprazole 40 mg capsule,delayed release 1 cap PO QDAY 10/28/22 [History] ropinirole 1 mg tablet 1 - 2 tab PO QPM 10/28/22 [History] semaglutide 1 mg/dose (4 mg/3 mL) subcutaneous pen injector (Ozempic) 1 mg subcut QWEEK 10/28/22 [History] sucralfate 1 gram tablet 0.5 tab PO QID 10/28/22 [History] tamsulosin 0.4 mg capsule 1 cap PO QDAY 10/28/22 [History] temazepam 30 mg capsule 1 cap PO QPM 10/28/22 [History] tramadol 50 mg tablet 1 tab PO QDAY PRN 10/28/22 [History] Discharge Disposition Discharge Disposition: Home Discharge Condition: Stable Discharge Plan Discharge Plan Hospital Course: Pt is a 72 year old male admitted after failing outpatient treatment for COVID- 19, with hyponatremia and dehydration. His hospital/treatment course included:receiving monoclonal antibody infusion, IVF NS to 125 ml/h, and home medications. Labs/imaging: Wbc 3.5, Hgb 14.3, Plt 177, Na 132, K 3.5, Creatinine 0.56, Glucose 55, CXR: no acute cardiopulmonary findings. Hyponatremia significantly improved close to normal range. Strength and appetite back to normal. Pt discharged in stable condition. Instructed to follow up with pcp in 1 week. Patient Disposition: HOME, SELF-CARE Condition: Stable Health Concerns: Post Hospitalization: new medications and changes needed to prevent readmission or further decline. Pt educated and given instructions on all concerns. Plan of Treatment: Continue with present treatment and follow up plan. Pt is to keep follow up appointment as instructed and take medications as ordered. Prescriptions: Continued Amlodipine Besylate 10 MG Tab 1 cap PO DAILY Label Comments: TAKE 1 TABLET BY MOUTH AT BEDTIME latanoprost 0.005 % drops 1 drp AFFEYE HS atorvastatin [Lipitor] 20 MG tablet 20 mg PO HS ropinirole 1 MG tablet 1 mg PO HS sucralfate 1 GM tablet 1 tab PO BID acetaminophen [Mapap Extra Strength] 500 MG tablet 500 mg PO Q6H PRN (Reason: Mild Pain) calcium carbonate [Calcium 600] 1,500 MG tablet 300 mg PO QID cyanocobalamin (vitamin B-12) 1,000 MCG/ML solution 1,000 mcg IJ MONTHLY aspirin 81 MG tablet,chewable 81 mg PO DAILY folic acid 1 MG tablet 1 mg PO DAILY clonidine 1 EACH patch weekly 1 each TD WEEKLY brimonidine [Alphagan P] 0.15 % drops 1 drp EACHEYE BID diazepam 5 MG tablet 5 mg PO BID PRN metoclopramide HCl 10 MG tablet 1 tab PO HS lactulose [Enulose] 10 GM/15 ML solution 30 mg PO DAILY pregabalin [Lyrica] 150 MG capsule 300 mg PO BID insulin glargine [Lantus Solostar U-100 Insulin] 100 UNIT/ML insulin pen 24 units SUBCUT HS Label Comments: INJECT 40 UNITS AT BEDTIME insulin glargine [Lantus Solostar U-100 Insulin] 100 UNIT/ML insulin pen 21 units SUBCUT DAILY Label Comments: INJECT 40 UNITS AT BEDTIME nebivolol [Bystolic] 20 MG tablet 1 tab PO DAILY Label Comments: TAKE ONE TABLET DAILY Bupropion HCl [Bupropion HCl XL (24 HR) 300 MG] 300 MG Tab 1 cap PO BID Label Comments: TAKE 1 TABLET BY MOUTH EVERY DAY Glimepiride [Glimepiride 4 mg] 4 MG Tab 4 mg PO BID Hydrocodone-Acetaminophen 1 TAB Tab 1 tab PO BID Misc Home Med [Patient's Home Medication] 1 EA Ea 1 ea PO DAILY Label Comments: omeprazole-bicarb 40-1,100mg cap 2 capsules po daily Olmesartan Medoxomil-Hydrochlo [Benicar HCT 40 mg/25 mg] 40 MG/25 MG Tab 1 tab PO DAILY Label Comments: TAKE 1 TABLET BY MOUTH EVERY DAY Temazepam 30 MG Cap 30 mg PO HS PRN (Reason: Insomnia) promethazine 25 MG tablet 25 mg PO Q8H PRN (Reason: Nausea/Vomiting) Qty: 12 0RF latanoprost 0.005 % drops 1 drp OPHTHALMIC (EYE) QPM metformin 500 mg tablet 1 tab PO BID ropinirole 1 mg tablet 1 - 2 tab PO QPM sucralfate 1 gram tablet 0.5 tab PO QID hydrocodone-acetaminophen 10-325 mg tablet 1 tab PO QID PRN (Reason: pain) omeprazole 40 mg capsule,delayed release(DR/EC) 1 cap PO QDAY tramadol 50 mg tablet 1 tab PO QDAY PRN alprazolam 0.25 mg tablet 1 tab PO QDAY tamsulosin 0.4 mg capsule 1 cap PO QDAY temazepam 30 mg capsule 1 cap PO QPM cyanocobalamin (vitamin B-12) 1,000 mcg/mL solution 1 ml IM QWEEK brimonidine 0.2 % drops 1 drp OPHTHALMIC (EYE) BID folic acid 1 mg tablet 1 tab PO QDAY clonidine 0.3 mg/24 hr patch weekly 1 patch QWEEK nifedipine 60 mg tablet extended release 1 tab PO BID metoclopramide HCl 10 mg tablet 1 tab PO QPM doxazosin 2 mg tablet 1 tab PO QDAY olmesartan-hydrochlorothiazide 40-25 mg tablet 1 tab PO BID bupropion HCl 300 mg tablet extended release 24 hr 1 tab PO QDAY lactulose 10 gram/15 mL solution 45 ml PO QDAY insulin glargine [Lantus Solostar U-100 Insulin] 100 unit/mL (3 mL) insulin pen 30 unit SUBCUT BID nebivolol 20 mg tablet 1 tab PO QDAY Ozempic 1 mg/dose (4 mg/3 mL) pen injector 1 mg SUBCUT QWEEK Discontinued Paxlovid (EUA) 300 mg (150 mg x 2)-100 mg tablets,dose pack 3 tab PO BID Follow ups/Referrals Follow ups/Referrals: TIAGO BLISS [Primary Care Provider] - 3 days Instructions Instructions: COVID-19 Frequently Asked Questions, Hyponatremia, [id number] Stand Alone Forms: Excuse From Work or School
[2022-11-01] MEDS ORDERED: PATIENT'S HOME MEDICATION (Semaglutide [Ozempic] 1 mg/dose (4 mg/3 mL) pen injector) SUBCUT SCH (09:00)
== END 2022-10-31 11:20 | disposition home or self-care (01) | DRG 178 ==
LOC: ER 16:05 → MED/SURG 18:23 → MERGE 18:23 → MED/SURG 19:49
PROVIDERS: ADMIT Internal Medicine; ATTEND Internal Medicine
DX: E87.1 Hypo-osmolality and hyponatremia; U07.1 COVID-19; K52.89 Other specified noninfective gastroenteritis and colitis; I25.10 Atherosclerotic heart disease of native coronary artery without angina pectoris; I10 Essential (primary) hypertension; K21.9 Gastro-esophageal reflux disease without esophagitis; F41.8 Other specified anxiety disorders; E86.0 Dehydration; E78.2 Mixed hyperlipidemia; R11.2 Nausea with vomiting, unspecified; E11.65 Type 2 diabetes mellitus with hyperglycemia

== ENCOUNTER 2022-12-07 10:07 | Inpatient (IN) ==
[2022-12-07 11:59] LABS: BASOPHILS % (AUTO) 0.3 % (0.2-1.0); EOSINOPHILS % (AUTO) 0.1 % (0.9-2.9); HEMATOCRIT 44.7 % (42.0-54.0); HEMOGLOBIN 15.7 g/dL (13.5-18.0); LYMPHOCYTES # (AUTO) 0.3 X10^3/uL (1.3-2.9); LYMPHOCYTES % (AUTO) 5.8 % (21.0-51.0); MEAN CORPUSCULAR HEMOGLOBIN 30.6 pg (27.0-34.0); MEAN CORPUSCULAR VOLUME 87.4 fL (80.0-100.0); MEAN PLATELET VOLUME 8.1 fL (7.4-11.0); MONOCYTES # (AUTO) 0.3 x10^3/uL (0.3-0.8); MONOCYTES % (AUTO) 5.5 % (0.0-13.0); NEUTROPHILS # (AUTO) 4.7 x10^3/uL (2.2-4.8); NEUTROPHILS % (AUTO) 88.3 % (42.0-75.0); RED BLOOD COUNT 5.12 X10^6/uL (4.7-6.0); RED CELL DISTRIBUTION WIDTH 14.1 % (11.6-16.5); WHITE BLOOD COUNT 5.4 X10^3/uL (3.6-10.0)
[2022-12-07] MEDS ORDERED: NS 1,000 ML IV 1,000 ML IV SCH (12:00)
[2022-12-07 12:02] LABS: ALANINE AMINOTRANSFERASE 52 Units/L (12-78); ALBUMIN 3.5 g/dL (3.4-5.0); ALKALINE PHOSPHATASE 62 Units/L (46-116); AMYLASE 48 Units/L (25-115); ASPARTATE AMINO TRANSFERASE 39 Units/L (15-37); BLOOD UREA NITROGEN 17 mg/dL (7-18); CALCIUM 9.3 mg/dL (8.5-10.1); CARBON DIOXIDE 29.9 mmol/L (21-32); CHLORIDE 93 mmol/L (98-107); COR NA(FOR HYPERGLY) 133 mmol/L (136-145); CREATININE 0.98 mg/dL (0.70-1.30); LIPASE 73 Units/L (73-393); SODIUM 131 mmol/L (136-145); TOTAL PROTEIN 6.8 g/dL (6.4-8.2); eGFR NON BLACK RACES > 60 (>60)
[2022-12-07] MEDS: NORCO 10/325 TAB PO PRN (14:31)
--- NOTE | 2022-12-07 14:50 | CT ---
HISTORYNausea, abdominal painSTUDYCT abdomen pelvis with contrastTechnique: Axial post-contrast images with coronal, sagittal, reformats. Dose reduction procedures were used with mA/kv adjusted for body size.COMPARISONNoneFINDINGSThe lung bases are clear. The liver, spleen, adrenal glands, and pancreas are within normal limits. Patient is status post cholecystectomy. The kidneys are unobstructed and without stones or masses. No ureteral calculi are identified. Abdominal aorta is normal in caliber. No intraperitoneal or retroperitoneal lymphadenopathy is identified. There is a fairly extensive pericecal inflammatory process present central to which there is a dilated tubular structure likely representing an inflamed appendix. Maximum diameter of this structure is 15.6 mm. There is some fluid surrounding the cecal tip and tracking in the right pericolic gutter. Appendiceal rupture is not excluded and immediate surgical evaluation is recommended. There are no findings suggestive of enteritis, colitis, or diverticulitis. Examination of the pelvis demonstrated no evidence for masses or pelvic lymphadenopathy. There is some fluid within the pelvis likely related to the right lower quadrant phlegm a yoselyn process present. Prostate gland is markedly enlarged and lobular. Correlation with serum PSA is recommended. No lytic or blastic skeletal lesions of significance are identified. No bladder abnormality is identified.IMPRESSIONFindings consistent with severe acute appendicitis with periappendiceal fluid tracking into the pelvis and up the right pericolic gutter. Early appendiceal rupture not excluded. No focal periappendiceal abscess identified. Immediate surgical evaluation is recommended.Markedly enlarged lobular prostate. Correlation with serum PSA is recommended.Electronically signed by: MONALISA MORALES (Dec 07, 2022 14:48:55)
[2022-12-07] MEDS ORDERED: MORPHINE SULFATE INJ 2 MG INJ IVP PRN (16:14)
[2022-12-07] MEDS: D5 1/2 NS 1,000 ML 1,000 ML IV SCH (16:33)
[2022-12-07] MEDS: ZOSYN VIAL 3.375 GRAMS 3.375 G in NS 100 ML IV 100 ML IV SCH (16:33)
[2022-12-07] MEDS: ZOFRAN INJ 4 MG VIAL IVP PRN (16:34)
[2022-12-07 16:55] LABS: BILIRUBIN,URINE NEGATIVE (NEGATIVE); BLOOD/HEMOGLOBIN,URINE 1+ (NEGATIVE); GLUCOSE, URINE NEGATIVE (NEGATIVE); KETONES,URINE 1+ (NEGATIVE); LEUKOCYTE ESTERASE ,URINE 1+ (NEGATIVE); NITRITES,URINE NEGATIVE (NEGATIVE); PROTEIN,URINE 2+ (NEGATIVE); UROBILINOGEN,URINE NORMAL (NORMAL)
[2022-12-07 17:02] LABS: APPEARANCE,URINE SLIGHTLY HAZY (CLEAR); COLOR,URINE YELLOW (YELLOW)
[2022-12-07 17:03] LABS: BACTERIA,URINE TRACE /HPF (NEGATIVE); SQUAMOUS EPITHELIAL CELL,UR RARE /HPF (NEGATIVE)
--- NOTE | 2022-12-07 17:21 | EKG ---
Test Reason : appendectomy in am Blood Pressure : */* mmHG Vent. Rate : 107 BPM Atrial Rate : 107 BPM P-R Int : 166 ms QRS Dur : 80 ms QT Int : 314 ms P-R-T Axes : 54 -3 42 degrees QTc Int : 419 ms Sinus tachycardia Otherwise normal ECG No previous ECGs available Confirmed by Ramsey Cantrell ([id number]) on 12/09/2022 8:16:08 AM Referred By: Confirmed By: Ramsey Cantrell
[2022-12-08] MEDS: ZOSYN VIAL 3.375 GRAMS 3.375 G in NS 100 ML IV 100 ML IV SCH ×3 (01:50→17:06)
[2022-12-08] MEDS: D5 1/2 NS 1,000 ML 1,000 ML IV SCH ×5 (02:08→20:22)
--- NOTE | 2022-12-08 02:31 | RAD ---
HISTORYPREOP appendectomy Relevant Clinical InformationSTUDYCHEST, 1 VIEWCOMPARISONNoneFINDINGSThe trachea is midline. Permanent pacing device. The cardiac silhouette is unremarkable. Suboptimal inspiratory effort with bibasilar subsegmental atelectasis. No pneumothorax.. The bony thorax is unremarkable.IMPRESSIONSuboptimal inspiratory effort with bibasilar subsegmental atelectasis..Electronically signed by: Eagle Duarte (Dec 08, 2022 02:29:41)
[2022-12-08 06:16] LABS: BASOPHILS % (AUTO) 0.3 % (0.2-1.0); EOSINOPHILS % (AUTO) 0.1 % (0.9-2.9); HEMATOCRIT 43.5 % (42.0-54.0); LYMPHOCYTES # (AUTO) 0.4 X10^3/uL (1.3-2.9); LYMPHOCYTES % (AUTO) 4.5 % (21.0-51.0); MEAN CORPUSCULAR HEMOGLOBIN 30.1 pg (27.0-34.0); MEAN CORPUSCULAR HGB CONC 34.6 g/dL (33.0-35.0); MEAN CORPUSCULAR VOLUME 87.1 fL (80.0-100.0); MEAN PLATELET VOLUME 8.6 fL (7.4-11.0); MONOCYTES # (AUTO) 0.7 x10^3/uL (0.3-0.8); MONOCYTES % (AUTO) 7.3 % (0.0-13.0); NEUTROPHILS % (AUTO) 87.8 % (42.0-75.0); RED BLOOD COUNT 4.99 X10^6/uL (4.7-6.0); RED CELL DISTRIBUTION WIDTH 14.7 % (11.6-16.5); WHITE BLOOD COUNT 9.1 X10^3/uL (3.6-10.0)
[2022-12-08 06:36] LABS: ALANINE AMINOTRANSFERASE 43 Units/L (12-78); ALBUMIN 2.9 g/dL (3.4-5.0); ALKALINE PHOSPHATASE 67 Units/L (46-116); ASPARTATE AMINO TRANSFERASE 31 Units/L (15-37); BLOOD UREA NITROGEN 20 mg/dL (7-18); CALCIUM 9.1 mg/dL (8.5-10.1); CARBON DIOXIDE 27.7 mmol/L (21-32); CHLORIDE 92 mmol/L (98-107); COR NA(FOR HYPERGLY) 133 mmol/L (136-145); CREATININE 1.06 mg/dL (0.70-1.30); SODIUM 130 mmol/L (136-145); TOTAL PROTEIN 6.6 g/dL (6.4-8.2); eGFR NON BLACK RACES > 60 (>60)
[2022-12-08] MEDS ORDERED: POTASSIUM CHLORIDE LIQ 20 MEQ UDC PO PRN (06:44)
[2022-12-08] MEDS ORDERED: KLOR-CON PO PRN (06:44)
[2022-12-08] MEDS ORDERED: MICRO K EXTEN CAP 10 MEQ PO PRN (06:44)
[2022-12-08] MEDS ORDERED: POTASSIUM CHL 40 MEQ/NS 0.45% 500 ML IV PRN (06:44)
[2022-12-08] MEDS ORDERED: POTASSIUM CHL 60 MEQ/NS 0.45% 500 ML IV PRN (06:44)
--- NOTE | 2022-12-08 08:37 | DR.H&P ---
H&P - History & Physical for Day of: H&P Date: 12/07/22 - Chief Complaint Chief Complaint: ABDOMINAL PAIN - History of Present Illness History of Present Illness: IS A 72 YEAR OLD PATIENT OF OURS. HE PRESENTED TO THE HOSPITAL A DIRECT ADMISSION DUE TO COMPLAINTS OF SEVERE ABDOMINAL PAIN THAT STARTED ON 12/06/22. HE REPORTS THAT PAIN IS IN THE LOWER QUADRATNS. PAIN IS DESCRIBED DIFFUSE AND CONSTANT. HE RATED PAIN AN 8/10. HE ADMITS TO NAUSEA, BUT DENIES VOMITING. HE DENIES DIARRHEA OR CONSTIPATION. PMH INCLUDES: GLAUCOMA, CHF, PACEMAKER, HYPERLIPIDEMIA, SLEEP APNEA, GERD, FIBROMYALGIA, DM II, ANXIETY CHOLECYSTECTOMY, TONSILLECTOMY, AND HERNIA REPAIR. ON ARRIVAL TO THE HOSPITAL, HIS VITALS WERE: 98.8-94-20-95%-165/81. LABS WERE OBTAINED. WBC 5.4, RBC 5.12, HGB 15.7, HCT 44.7, PLT COUNT 161, SODIUM 131, POTASSIUM 3.9, CHLORIDE 93, BUN 17, CREATININE 0.98, GLUCOSE 176, CALCIUM 9.3, AST 39, ALT 52, ALK PHOS 62, TOTAL PROTEIN 6.8, ALBUMIN 3.5, AMYLASE 48, LIPASE 73. A URINALYSIS WAS OBTAINED AND REVEALED: WBC 3-5, RBC 5-10, LEUKOCYTES 1+, BACTERIA TRACE, NITRITE NEGATIVE, PROTEIN 2+. AN ABDOMEN/PELVIS CT WITH CONTRAST WAS OBTAINED AND REVEALED: Findings consistent with severe acute appendicitis with periappendiceal fluid tracking into the pelvis and up the right pericolic gutter. Early appendiceal rupture not excluded. No focal periappendiceal abscess identified. Immediate surgical evaluation is recommended. Markedly enlarged lobular prostate. Correlation with serum PSA is recommended. A CHEST XRAY WAS OBTAINED AND REVEALED: Suboptimal inspiratory effort with bibasilar subsegmental atelectasis. EKG REVEALED SINUS TACHYCARDIA WITH HR 107. WAS CONSULTED. HE PLANS FOR DIAGNOSTIC LAPROSCOPY WITH POSSIBLE OPEN PROCEDURE AND APPENDECTOMY IN THE MORNING. PATIENT WAS STARTED ON D51/2 NORMAL SALINE AT 125ML/HR, ZOSYN 3.375G IV Q8H, ZOFRAN 4MG IV Q4H PRN, MORPHINE SULFATE 2MG IV Q4H PRN, NORCO 10/325MG PO Q6H PRN, OTBS ACHS, HUMULIN R SLIDING SCALE, AND THE POTASSIUM AND MAGNESIUM PROTOCOLS. OTHERWISE, WE WILL FOLLOW-UP WITH AM LABS AND CONTINUE TO MONITOR. TIME SPENT ON CLINICAL ASSESSMENT, REVIWING LABS AND IMAGING, DECISION MAKING, AND DOCUMENTATION GREATER THAN 75 MINUTES. - Past Medical History Past Medical History: Depression, Anxiety, GERD, Coronary Artery Disease, Hypertension, Dyslipidemia, Diabetes - Past Surgical History Surgical History: Cholecystectomy, Tonsillectomy - Family History Family Medical History: Diabetes Mellitus, Hypertension - Social History Does patient currently use any type of tobacco product: No Have you used tobacco products in the last 12 months: No Type of Tobacco Use: None Does any household member use tobacco: No Alcohol Use: None Drug Use: None - Medications Home Medications: Penicillins Allergy (Unknown, Verified 12/07/22 12:16) prednisolone Allergy (Unknown, Verified 01/12/12 17:02) Sulfa (Sulfonamide Antibiotics) [SULFA] Allergy (Unknown, Verified 12/07/22 12:16) CONTINUE taking the following medications aspirin 81 mg tablet,delayed release 81 mg PO DAILY 12/07/22 [History] clonidine 0.3 mg/24 hr weekly transdermal patch 0.3 mg transdermal WEEKLY 12/07/22 [History] lactulose 10 gram/15 mL oral solution 10 g PO DAILY 12/07/22 [History] simvastatin 20 mg tablet 20 mg PO HS 12/07/22 [History] - Review of Systems Constitutional: Weakness Eyes: No Symptoms Reported ENT: No Symptoms Reported Respiratory: No Symptoms Reported Cardiovascular: No Symptoms Reported Gastrointestinal: See HPI, Nausea, Abdominal Pain. denies: Vomiting, Diarrhea, Constipation Genitourinary: No Symptoms Reported Musculoskeletal: No Symptoms Reported Skin: No Symptoms Reported Neurological: No Symptoms Reported - Physical Exam Vital Signs: Temperature 98.5 F Pulse Rate [Bilateral Radial] 96 Respiratory Rate 20 Blood Pressure [Right Arm] 137/71 Blood Pressure [Left Arm] 131/69 O2 Sat by Pulse Oximetry 93 Oriented: Normal Eyes: Normal Ear: Normal Nose: Normal Throat: Normal Respiratory: Diminished Throughout Cardiovascular: Tachycardia : Normal Auscultation: Bowel Sounds: Normal Palpation: Normal Tenderness: RLQ, LLQ, Severe, Rebound, Guarding. negative: Rigidity Skin: Normal Musculoskeletal: Normal Psychiatric: Normal Mood Description: Calm Affect: Normal Speech Pattern: Clear - Assessment/Plan (1) Acute appendicitis Qualifiers: Acute appendicitis type: unspecified acute appendicitis type Qualified Code(s): K35.80 - Unspecified acute appendicitis Status: Acute Plan: ADMIT, LAPROSCOPY AND APPENDECTOMY IN AM, D51/2 NORMAL SALINE AT 125ML/HR, ZOSYN 3.375G IV Q8H, ZOFRAN 4MG IV Q4H PRN, MORPHINE SULFATE 2MG IV Q4H PRN, NORCO 10/325MG PO Q6H PRN, OTBS ACHS, HUMULIN R SLIDING SCALE, AND THE POTASSIUM AND MAGNESIUM PROTOCOLS. RESUME HOME MEDS (2) Abdominal pain Qualifiers: Abdominal location: lower abdomen, unspecified Qualified Code(s): R10.30 - Lower abdominal pain, unspecified Status: Acute (3) Nausea & vomiting Qualifiers: Vomiting type: unspecified Qualified Code(s): R11.2 - Nausea with vomiting, unspecified Status: Acute (4) CHF (congestive heart failure) Qualifiers: Heart failure type: unspecified Heart failure chronicity: chronic Qualified Code(s): I50.9 - Heart failure, unspecified Status: Chronic (5) Controlled type 2 diabetes mellitus without complication Qualifiers: Diabetes mellitus terminal makeup operator insulin use: with fdc use Qualified Code(s): E11.9 - Type 2 diabetes mellitus without complications; Z79.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 (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) use of insulin Status: Chronic (6) Dyslipidemia Status: Chronic (7) Gastroesophageal reflux disease Qualifiers: Esophagitis presence: esophagitis presence not specified Qualified Code(s): K21.9 - Gastro-esophageal reflux disease without esophagitis Status: Chronic (8) Hypertension Qualifiers: Hypertension type: primary hypertension Qualified Code(s): I10 - Essential (primary) hypertension Status: Chronic (9) Obstructive sleep apnea on CPAP Status: Chronic - Allergies Allergies/Adverse Reactions: Allergies Allergy/AdvReac Type Severity Reaction Status Date / Time Penicillins Allergy Unknown Verified 12/07/22 12:16 prednisolone Allergy Unknown Verified 01/12/12 17:02 Sulfa (Sulfonamide Allergy Unknown Verified 12/07/22 12:16 Antibiotics) [SULFA]
[2022-12-08] MEDS ORDERED: NS 1,000 ML IV 1,000 ML ONE ×4 (08:40→13:23)
[2022-12-08] MEDS ORDERED: ZOSYN VIAL 3.375 GRAMS IV ONE (08:50)
[2022-12-08] MEDS ORDERED: NS 100 ML IV 100 ML ONE (08:51)
[2022-12-08] MEDS ORDERED: DUONEB 0.5 MG/3 MG (3 mL) NEB ONE ×2 (09:22→09:24)
[2022-12-08] MEDS ORDERED: BACTROBAN TOPICAL OINT ONE (09:28)
[2022-12-08] MEDS ORDERED: QUELICIN (OR ANECTINE) ONE (09:30)
[2022-12-08] MEDS ORDERED: NEO-SYNEPHRINE INJ ONE (09:30)
[2022-12-08] MEDS ORDERED: KETAMINE HCL ONE (09:30)
[2022-12-08] MEDS ORDERED: PEPCID 20 MG VIAL ONE (09:30)
[2022-12-08] MEDS ORDERED: ZEMURON 100 MG VIAL ONE (09:30)
[2022-12-08] MEDS ORDERED: ULTANE GAS IN ONE (09:30)
[2022-12-08] MEDS ORDERED: FENTANYL VIAL INJ 250 mcg ONE (09:32)
[2022-12-08] MEDS ORDERED: DIPRIVAN VIAL 20 ML ONE (09:33)
[2022-12-08] MEDS ORDERED: POLYMYXIN B SULFATE ONE (10:56)
[2022-12-08] MEDS ORDERED: HESPAN IV IN NS 500 ML IV ONE (11:45)
[2022-12-08] MEDS ORDERED: ProvayBLUE 0.5% ONE (12:31)
[2022-12-08] MEDS ORDERED: BRIDION ONE (12:54)
[2022-12-08] MEDS ORDERED: NAROPIN 0.75% EPI ONE (13:11)
[2022-12-08] MEDS ORDERED: FENTANYL VIAL INJ 100 mcg ONE (13:39)
[2022-12-08] MEDS ORDERED: BARHEMSYS INJ IVP PRN (14:08)
[2022-12-08] MEDS ORDERED: BENADRYL INJ 50 MG VIAL IVP PRN (14:08)
[2022-12-08] MEDS ORDERED: REGLAN INJ 10 MG VIAL IVP PRN (14:08)
[2022-12-08] MEDS ORDERED: ZOFRAN INJ 4 MG VIAL IVP PRN (14:08)
[2022-12-08] MEDS ORDERED: DILAUDID INJ ONE ×2 (14:20→14:30)
[2022-12-08] MEDS: DILAUDID INJ IVP PRN ×6 (14:20→20:22)
[2022-12-08] MEDS: PROTONIX INJ 40 MG VIAL IVP SCH (15:21)
[2022-12-08] MEDS: MAGNESIUM SULFATE 1 GRAM/100 mL PREMIX 1 G/100 ML BAG IV PRN (16:14)
[2022-12-08] MEDS: SNACK - Diabetic Appropriate PO SCH (20:21)
[2022-12-09] MEDS: MAGNESIUM SULFATE 1 GRAM/100 mL PREMIX 1 G/100 ML BAG IV PRN (00:13)
[2022-12-09] MEDS: D5 1/2 NS 1,000 ML 1,000 ML IV SCH ×4 (01:07→15:00)
[2022-12-09] MEDS: ZOSYN VIAL 3.375 GRAMS 3.375 G in NS 100 ML IV 100 ML IV SCH ×2 (01:08→09:19)
[2022-12-09] MEDS: K-RIDER 10 MEQ/NS 100 ML 10 MEQ/100 ML BAG IV PRN (01:08)
[2022-12-09 04:34] LABS: BASOPHILS % (AUTO) 0.2 % (0.2-1.0); EOSINOPHILS % (AUTO) 0.1 % (0.9-2.9); HEMATOCRIT 36.6 % (42.0-54.0); LYMPHOCYTES # (AUTO) 0.2 X10^3/uL (1.3-2.9); MEAN CORPUSCULAR HEMOGLOBIN 29.8 pg (27.0-34.0); MEAN CORPUSCULAR HGB CONC 34.1 g/dL (33.0-35.0); MEAN CORPUSCULAR VOLUME 87.4 fL (80.0-100.0); MEAN PLATELET VOLUME 8.3 fL (7.4-11.0); MONOCYTES # (AUTO) 0.4 x10^3/uL (0.3-0.8); MONOCYTES % (AUTO) 6.2 % (0.0-13.0); NEUTROPHILS % (AUTO) 90.5 % (42.0-75.0); RED BLOOD COUNT 4.19 X10^6/uL (4.7-6.0); RED CELL DISTRIBUTION WIDTH 14.1 % (11.6-16.5); WHITE BLOOD COUNT 6.6 X10^3/uL (3.6-10.0)
[2022-12-09 04:53] LABS: ALANINE AMINOTRANSFERASE 46 Units/L (12-78); ALBUMIN 1.7 g/dL (3.4-5.0); ALKALINE PHOSPHATASE 43 Units/L (46-116); ASPARTATE AMINO TRANSFERASE 36 Units/L (15-37); BLOOD UREA NITROGEN 17 mg/dL (7-18); CARBON DIOXIDE 24.9 mmol/L (21-32); CHLORIDE 98 mmol/L (98-107); COR CA(FOR HYPOALB) 8.8 mg/dL (8.5-10.1); COR NA(FOR HYPERGLY) 132 mmol/L (136-145); CREATININE 0.81 mg/dL (0.70-1.30); SODIUM 129 mmol/L (136-145); TOTAL PROTEIN 4.8 g/dL (6.4-8.2); eGFR NON BLACK RACES > 60 (>60)
[2022-12-09 05:12] LABS: BAND NEUTROPHILS % 14 % (0-10); HEMOGLOBIN 12.5 g/dL (13.5-18.0); METAMYELOCYTES % 1; MYELOCYTES % 2; PLATELET MORPHOLOGY COMMENT NORMAL (NORMAL)
--- NOTE | 2022-12-09 07:52 | DR.PROGNOT ---
HOSPITAL PROGRESS NOTE Progress Note for Day of: Progress Note Date: 12/09/22 Chief Complaint Chief Complaint: post op RT colectomy for ruptured appendix and inflammatory mass RLQ with dense attachments to bladder and small bowel . doing fairly well . fair urine OP . afebrile . Past Medical Family Social History Past Med/Fam/Surg Hx: No changes since H&P Allergies: Allergies Penicillins Allergy (Unknown, Verified 12/07/22 12:16) prednisolone Allergy (Unknown, Verified 01/12/12 17:02) Sulfa (Sulfonamide Antibiotics) [SULFA] Allergy (Unknown, Verified 12/07/22 12:1 6) Review Of Systems ROS: No change since H&P Vital Signs Vital Signs: Temperature 98.4 F Pulse Rate [Bilateral Radial] 96 Pulse Rate 80 Respiratory Rate 25 Blood Pressure [Right Arm] 137/71 Blood Pressure [Left Arm] 131/69 Blood Pressure 157/71 O2 Sat by Pulse Oximetry 97 Physical Exam Oriented: Normal Eyes: Normal Ear: Normal Nose: Normal Throat: Normal Cardiovascular: Tachycardia : Normal GI:Auscultation: Decreased and Other (diffuse tenderness ) GI:Palpation: Normal GI: Tenderness: RLQ, LLQ, Severe, Rebound and Guarding; negative Rigidity Skin: Normal Musculoskeletal: Normal Psychiatric: Normal Mood Description: Calm and Appropriate Affect: Normal Speech Pattern: Clear and Appropriate Laboratory and Diagnostics Result Diagrams: 12/09/22 04:20 12/09/22 04:20 Labs: 12/08/22 10:58 Peritoneal Fluid Wound Gram Stain - Final Laboratory WBC 6.6 X10^3/uL (3.6-10.0) 12/09/22 04:20 RBC 4.19 X10^6/uL (4.7-6.0) L 12/09/22 04:20 Hgb 12.5 g/dL (13.5-18.0) L D 12/09/22 04:20 Hct 36.6 % (42.0-54.0) L 12/09/22 04:20 MCV 87.4 fL (80.0-100.0) 12/09/22 04:20 MCH 29.8 pg (27.0-34.0) 12/09/22 04:20 MCHC 34.1 g/dL (33.0-35.0) 12/09/22 04:20 RDW 14.1 % (11.6-16.5) 12/09/22 04:20 Plt Count 126 X10^3/uL (150.0-450.0) L 12/09/22 04:20 Plt Count Comment Decreased (ADEQUATE) 12/09/22 04:20 MPV 8.3 fL (7.4-11.0) 12/09/22 04:20 Neut % (Auto) 90.5 % (42.0-75.0) H 12/09/22 04:20 Lymph % (Auto) 3.0 % (21.0-51.0) L 12/09/22 04:20 [place] % (Auto) 6.2 % (0.0-13.0) 12/09/22 04:20 Eos % (Auto) 0.1 % (0.9-2.9) L 12/09/22 04:20 Baso % (Auto) 0.2 % (0.2-1.0) 12/09/22 04:20 Neut # (Auto) 6.0 x10^3/uL (2.2-4.8) H 12/09/22 04:20 Lymph # (Auto) 0.2 X10^3/uL (1.3-2.9) L 12/09/22 04:20 [place] # (Auto) 0.4 x10^3/uL (0.3-0.8) 12/09/22 04:20 Eos # (Auto) 0.0 x10^3/uL (0.0-0.2) 12/09/22 04:20 Baso # (Auto) 0.0 X10^3/uL (0.0-0.1) 12/09/22 04:20 Absolute Nucleated RBC 0.0 /100WBC 12/09/22 04:20 Total Counted 100 12/09/22 04:20 Neutrophils % (Manual) 68 % (39-76) 12/09/22 04:20 Band Neutrophils % 14 % (0-10) H 12/09/22 04:20 Lymphocytes % (Manual) 7 % (13-43) L 12/09/22 04:20 Monocytes % (Manual) 8 % (4-9) 12/09/22 04:20 Metamyelocytes % 1 12/09/22 04:20 Myelocytes % 2 12/09/22 04:20 Plt Morphology Comment Normal (NORMAL) 12/09/22 04:20 RBC Morphology Normal (NORMAL) 12/09/22 04:20 Sodium 129 mmol/L (136-145) L 12/09/22 04:20 Corrected Sodium 132 mmol/L (136-145) L 12/09/22 04:20 Potassium 3.9 mmol/L (3.5-5.1) 12/09/22 04:20 Chloride 98 mmol/L (98-107) 12/09/22 04:20 Carbon Dioxide 24.9 mmol/L (21-32) 12/09/22 04:20 BUN 17 mg/dL (7-18) 12/09/22 04:20 Creatinine 0.81 mg/dL (0.70-1.30) 12/09/22 04:20 Est GFR (MDRD) Af Amer > 60 (>60) 12/09/22 04:20 Est GFR (MDRD) Non-Af > 60 (>60) 12/09/22 04:20 Glucose 245 mg/dL (65-99) H 12/09/22 04:20 POC Glucose (mg/dL) 239 mg/dL (65-99) H 12/08/22 20:03 Calcium 7.0 mg/dL (8.5-10.1) L 12/09/22 04:20 Corrected Calcium 8.8 mg/dL (8.5-10.1) 12/09/22 04:20 Magnesium 2.2 mg/dL (2.0-2.9) 12/09/22 04:20 Total Bilirubin 0.50 mg/dL (0.2-1.0) 12/09/22 04:20 AST 36 Units/L (15-37) 12/09/22 04:20 ALT 46 Units/L (12-78) 12/09/22 04:20 Alkaline Phosphatase 43 Units/L (46-116) L 12/09/22 04:20 Total Protein 4.8 g/dL (6.4-8.2) L 12/09/22 04:20 Albumin 1.7 g/dL (3.4-5.0) L 12/09/22 04:20 Globulin 3.1 g/dL (2.5-4.5) 12/09/22 04:20 Albumin/Globulin Ratio 0.5 Ratio (1.1-2.1) L 12/09/22 04:20 Amylase 48 Units/L (25-115) 12/07/22 11:35 Lipase 73 Units/L (73-393) 12/07/22 11:35 Specimen Type Clean catch urine 12/07/22 16:39 Urine Color Yellow (YELLOW) 12/07/22 16:39 Urine Appearance Slightly hazy (CLEAR) 12/07/22 16:39 Urine pH 7.0 (5.0 - 8.0) 12/07/22 16:39 Ur Specific [place] 1.005 (1.000-1.030) 12/07/22 16:39 Urine Protein 2+ (NEGATIVE) 12/07/22 16:39 Urine Glucose (UA) Negative (NEGATIVE) 12/07/22 16:39 Urine Ketones 1+ (NEGATIVE) 12/07/22 16:39 Urine Blood 1+ (NEGATIVE) 12/07/22 16:39 Urine Nitrite Negative (NEGATIVE) 12/07/22 16:39 Urine Bilirubin Negative (NEGATIVE) 12/07/22 16:39 Urine Urobilinogen Normal (NORMAL) 12/07/22 16:39 Ur Leukocyte Esterase 1+ (NEGATIVE) 12/07/22 16:39 Urine RBC 5-10 /HPF (0-3) A 12/07/22 16:39 Urine WBC 3-5 /HPF (0-5) 12/07/22 16:39 Ur Squamous Epith Cells Rare /HPF (NEGATIVE) 12/07/22 16:39 Urine Bacteria Trace /HPF (NEGATIVE) 12/07/22 16:39 Ur Culture Indicated? No/not indicated 12/07/22 16:39 Tissue Pathology To follow 12/08/22 12:45 Assessment and Plan 1: ruptured appendicitis with inflammatory mass RLQ with dense adhesions to the bladder and small bowel . s/p laparoscopy , laparotomy , RT colectomy . same PO care , OOB , DVT prophylaxis , keep Npo today , IV ABT , Problem Patient Problems: Patient Problems (Updated 12/08/22 @ 08:37 by Cooper Kimball) Acute appendicitis (Acute) K35.80 CHF (congestive heart failure) (Chronic) I50.9 Nausea & vomiting (Acute) R11.2 Abdominal pain (Acute) R10.9 Controlled type 2 diabetes mellitus without complication (Chronic) E11.9 Dyslipidemia (Chronic) E78.5 Gastroesophageal reflux disease (Chronic) K21.9 Pt states insurance will not pay for Omeprazole twice a day Hypertension (Chronic) I10 Long standing hx of HTN on multiple heart and b/p meds. Obstructive sleep apnea on CPAP (Chronic) G47.33, Z99.89
[2022-12-09] MEDS: LOVENOX INJ 40 MG SYR SC SCH (09:06)
[2022-12-09] MEDS: DILAUDID INJ IVP PRN ×2 (09:07→16:46)
[2022-12-09] MEDS: PROTONIX INJ 40 MG VIAL IVP SCH (09:08)
[2022-12-09] MEDS: FORTAZ or TAZICEF VIAL INJ 1 G in NS 100 ML IV 100 ML IV SCH ×3 (09:26→21:21)
[2022-12-09] MEDS ORDERED: ZOSYN VIAL 3.375 GRAMS 3.375 G in NS 100 ML IV 100 ML IV SCH (10:00)
[2022-12-09] MEDS: SNACK - Diabetic Appropriate PO SCH (20:30)
[2022-12-10] MEDS: D5 1/2 NS 1,000 ML 1,000 ML IV SCH ×6 (00:45→23:34)
[2022-12-10 05:00] LABS: BASOPHILS % (AUTO) 0.3 % (0.2-1.0); EOSINOPHILS % (AUTO) 0.2 % (0.9-2.9); HEMATOCRIT 32.3 % (42.0-54.0); HEMOGLOBIN 11.3 g/dL (13.5-18.0); LYMPHOCYTES # (AUTO) 0.3 X10^3/uL (1.3-2.9); LYMPHOCYTES % (AUTO) 3.1 % (21.0-51.0); MEAN CORPUSCULAR HEMOGLOBIN 30.2 pg (27.0-34.0); MEAN CORPUSCULAR HGB CONC 34.8 g/dL (33.0-35.0); MEAN CORPUSCULAR VOLUME 86.6 fL (80.0-100.0); MEAN PLATELET VOLUME 8.2 fL (7.4-11.0); MONOCYTES # (AUTO) 0.8 x10^3/uL (0.3-0.8); MONOCYTES % (AUTO) 8.4 % (0.0-13.0); RED BLOOD COUNT 3.74 X10^6/uL (4.7-6.0); RED CELL DISTRIBUTION WIDTH 14.4 % (11.6-16.5); WHITE BLOOD COUNT 9.1 X10^3/uL (3.6-10.0)
[2022-12-10 05:12] LABS: ALANINE AMINOTRANSFERASE 47 Units/L (12-78); ALBUMIN 1.5 g/dL (3.4-5.0); ALKALINE PHOSPHATASE 54 Units/L (46-116); ASPARTATE AMINO TRANSFERASE 42 Units/L (15-37); BLOOD UREA NITROGEN 11 mg/dL (7-18); CALCIUM 7.3 mg/dL (8.5-10.1); CARBON DIOXIDE 26.3 mmol/L (21-32); CHLORIDE 97 mmol/L (98-107); COR CA(FOR HYPOALB) 9.3 mg/dL (8.5-10.1); COR NA(FOR HYPERGLY) 134 mmol/L (136-145); CREATININE 0.64 mg/dL (0.70-1.30); SODIUM 131 mmol/L (136-145); eGFR NON BLACK RACES > 60 (>60)
[2022-12-10] MEDS: SNACK - Diabetic Appropriate PO SCH (05:41)
[2022-12-10] MEDS: FORTAZ or TAZICEF VIAL INJ 1 G in NS 100 ML IV 100 ML IV SCH ×3 (05:42→21:26)
[2022-12-10] MEDS: MAGNESIUM SULFATE 1 GRAM/100 mL PREMIX 1 G/100 ML BAG IV PRN ×2 (06:51→11:16)
[2022-12-10] MEDS: LOVENOX INJ 40 MG SYR SC SCH (08:35)
[2022-12-10] MEDS: PROTONIX INJ 40 MG VIAL IVP SCH (08:37)
--- NOTE | 2022-12-10 09:00 | DR.PROGNOT ---
HOSPITAL PROGRESS NOTE Progress Note for Day of: Progress Note Date: 12/10/22 Chief Complaint Chief Complaint: post op RT colectomy for ruptured appendix and inflammatory mass RLQ with dense attachments to bladder and small bowel . doing fairly well . passing flatus . normal CBC and LFT . good urine out put . temp 98.5 Past Medical Family Social History Past Med/Fam/Surg Hx: No changes since H&P Allergies: Allergies Penicillins Allergy (Unknown, Verified 12/07/22 12:16) prednisolone Allergy (Unknown, Verified 01/12/12 17:02) Sulfa (Sulfonamide Antibiotics) [SULFA] Allergy (Unknown, Verified 12/07/22 12:16) Review Of Systems ROS: No change since H&P Vital Signs Vital Signs: Temperature 99.5 F Pulse Rate [Bilateral Radial] 96 Pulse Rate 78 Respiratory Rate 27 Blood Pressure [Right Arm] 137/71 Blood Pressure [Left Arm] 131/69 Blood Pressure 162/77 O2 Sat by Pulse Oximetry 95 Physical Exam Oriented: Normal Eyes: Normal Ear: Normal Nose: Normal Throat: Normal Cardiovascular: Tachycardia : Normal GI:Auscultation: Decreased and Other (diffuse tenderness ) GI:Palpation: Normal GI: Tenderness: Diffuse (abdominal tendeness and hypo active BS ) Skin: Normal Musculoskeletal: Normal Psychiatric: Normal Mood Description: Calm and Appropriate Affect: Normal Speech Pattern: Clear and Appropriate Laboratory and Diagnostics Result Diagrams: 12/10/22 04:20 12/10/22 04:20 Labs: 12/08/22 17:16 Urine,[place] Urine Culture - Final 12/08/22 10:58 Peritoneal Fluid Wound Gram Stain - Final 12/08/22 10:58 Peritoneal Fluid Wound Culture - Preliminary Citrobacter Koseri Klebsiella Pneumoniae Laboratory WBC 9.1 X10^3/uL (3.6-10.0) 12/10/22 04:20 RBC 3.74 X10^6/uL (4.7-6.0) L 12/10/22 04:20 Hgb 11.3 g/dL (13.5-18.0) L 12/10/22 04:20 Hct 32.3 % (42.0-54.0) L 12/10/22 04:20 MCV 86.6 fL (80.0-100.0) 12/10/22 04:20 MCH 30.2 pg (27.0-34.0) 12/10/22 04:20 MCHC 34.8 g/dL (33.0-35.0) 12/10/22 04:20 RDW 14.4 % (11.6-16.5) 12/10/22 04:20 Plt Count 144 X10^3/uL (150.0-450.0) L 12/10/22 04:20 Plt Count Comment Decreased (ADEQUATE) 12/09/22 04:20 MPV 8.2 fL (7.4-11.0) 12/10/22 04:20 Neut % (Auto) 88.0 % (42.0-75.0) H 12/10/22 04:20 Lymph % (Auto) 3.1 % (21.0-51.0) L 12/10/22 04:20 [place] % (Auto) 8.4 % (0.0-13.0) 12/10/22 04:20 Eos % (Auto) 0.2 % (0.9-2.9) L 12/10/22 04:20 Baso % (Auto) 0.3 % (0.2-1.0) 12/10/22 04:20 Neut # (Auto) 8.0 x10^3/uL (2.2-4.8) H 12/10/22 04:20 Lymph # (Auto) 0.3 X10^3/uL (1.3-2.9) L 12/10/22 04:20 [place] # (Auto) 0.8 x10^3/uL (0.3-0.8) 12/10/22 04:20 Eos # (Auto) 0.0 x10^3/uL (0.0-0.2) 12/10/22 04:20 Baso # (Auto) 0.0 X10^3/uL (0.0-0.1) 12/10/22 04:20 Absolute Nucleated RBC 0.0 /100WBC 12/10/22 04:20 Total Counted 100 12/09/22 04:20 Neutrophils % (Manual) 68 % (39-76) 12/09/22 04:20 Band Neutrophils % 14 % (0-10) H 12/09/22 04:20 Lymphocytes % (Manual) 7 % (13-43) L 12/09/22 04:20 Monocytes % (Manual) 8 % (4-9) 12/09/22 04:20 Metamyelocytes % 1 12/09/22 04:20 Myelocytes % 2 12/09/22 04:20 Plt Morphology Comment Normal (NORMAL) 12/09/22 04:20 RBC Morphology Normal (NORMAL) 12/09/22 04:20 Sodium 131 mmol/L (136-145) L 12/10/22 04:20 Corrected Sodium 134 mmol/L (136-145) L 12/10/22 04:20 Potassium 3.4 mmol/L (3.5-5.1) L 12/10/22 04:20 Chloride 97 mmol/L (98-107) L 12/10/22 04:20 Carbon Dioxide 26.3 mmol/L (21-32) 12/10/22 04:20 BUN 11 mg/dL (7-18) 12/10/22 04:20 Creatinine 0.64 mg/dL (0.70-1.30) L 12/10/22 04:20 Est GFR (MDRD) Af Amer > 60 (>60) 12/10/22 04:20 Est GFR (MDRD) Non-Af > 60 (>60) 12/10/22 04:20 Glucose 222 mg/dL (65-99) H 12/10/22 04:20 POC Glucose (mg/dL) 211 mg/dL (65-99) H 12/10/22 05:26 Calcium 7.3 mg/dL (8.5-10.1) L 12/10/22 04:20 Corrected Calcium 9.3 mg/dL (8.5-10.1) 12/10/22 04:20 Magnesium 1.9 mg/dL (2.0-2.9) L 12/10/22 04:20 Total Bilirubin 0.40 mg/dL (0.2-1.0) 12/10/22 04:20 AST 42 Units/L (15-37) H 12/10/22 04:20 ALT 47 Units/L (12-78) 12/10/22 04:20 Alkaline Phosphatase 54 Units/L (46-116) 12/10/22 04:20 Total Protein 5.0 g/dL (6.4-8.2) L 12/10/22 04:20 Albumin 1.5 g/dL (3.4-5.0) L 12/10/22 04:20 Globulin 3.5 g/dL (2.5-4.5) 12/10/22 04:20 Albumin/Globulin Ratio 0.4 Ratio (1.1-2.1) L 12/10/22 04:20 Amylase 48 Units/L (25-115) 12/07/22 11:35 Lipase 73 Units/L (73-393) 12/07/22 11:35 Specimen Type Clean catch urine 12/07/22 16:39 Urine Color Yellow (YELLOW) 12/07/22 16:39 Urine Appearance Slightly hazy (CLEAR) 12/07/22 16:39 Urine pH 7.0 (5.0 - 8.0) 12/07/22 16:39 Ur Specific [place] 1.005 (1.000-1.030) 12/07/22 16:39 Urine Protein 2+ (NEGATIVE) 12/07/22 16:39 Urine Glucose (UA) Negative (NEGATIVE) 12/07/22 16:39 Urine Ketones 1+ (NEGATIVE) 12/07/22 16:39 Urine Blood 1+ (NEGATIVE) 12/07/22 16:39 Urine Nitrite Negative (NEGATIVE) 12/07/22 16:39 Urine Bilirubin Negative (NEGATIVE) 12/07/22 16:39 Urine Urobilinogen Normal (NORMAL) 12/07/22 16:39 Ur Leukocyte Esterase 1+ (NEGATIVE) 12/07/22 16:39 Urine RBC 5-10 /HPF (0-3) A 12/07/22 16:39 Urine WBC 3-5 /HPF (0-5) 12/07/22 16:39 Ur Squamous Epith Cells Rare /HPF (NEGATIVE) 12/07/22 16:39 Urine Bacteria Trace /HPF (NEGATIVE) 12/07/22 16:39 Ur Culture Indicated? No/not indicated 12/07/22 16:39 Tissue Pathology To follow 12/08/22 12:45 Assessment and Plan 1: ruptured appendicitis with inflammatory mass RLQ with dense adhesions to the bladder and small bowel . s/p laparoscopy , laparotomy , RT colectomy . same PO care , OOB , DVT prophylaxis , IV ABT , to D/C NGT and start on clear liquid . Problem Patient Problems: Patient Problems (Updated 12/08/22 @ 08:37 by Cooper Kimball) Acute appendicitis (Acute) K35.80 CHF (congestive heart failure) (Chronic) I50.9 Nausea & vomiting (Acute) R11.2 Abdominal pain (Acute) R10.9 Controlled type 2 diabetes mellitus without complication (Chronic) E11.9 Dyslipidemia (Chronic) E78.5 Gastroesophageal reflux disease (Chronic) K21.9 Pt states insurance will not pay for Omeprazole twice a day Hypertension (Chronic) I10 Long standing hx of HTN on multiple heart and b/p meds. Obstructive sleep apnea on CPAP (Chronic) G47.33, Z99.89
[2022-12-10] MEDS: ALBUMIN HUMAN 25%- 100 ML 100 ML IV SCH (09:19)
[2022-12-10] MEDS: ZOFRAN INJ 4 MG VIAL IVP PRN ×2 (09:20→20:19)
--- NOTE | 2022-12-10 09:45 | PCM.PROG ---
Progress Note - Progress Note for Day of Date of Exam: 12/08/22 - Subjective Subjective: IS CURRENTLY OBSERVATION STATUS FOR TREATMENT OF ACUTE APPENDICITIS, ABDOMINAL PAIN, NAUSEA AND VOMITING. HE HAS A PMH OF CHF, DM II, DYSLIPIDEMIA, GERD, HTN, AND OBSTRUCTIVE SLEEP APNEA. HE HAS HAD A CHOLECYSTECTOMY, TONSILLECTOMY, AND HERNIA REPAIR WITH MESH INSERTION IN THE PAST. TODAY, HE IS ALERT AND ORIENTED, LYING IN BED ON MORNING ROUNDS. HE CONTINUES TO COMPLAIN OF LOWER ABDOMEN PAIN. PAIN IS IN BLOTH THE RIGHT AND LEFT LOWER QUADRNATS. HE DENIES VOMITING, BUT CONTINUES WITH NAUSEA. HE DENIES SIGNIFICANT IMPROVEMENT IN PAIN SINCE ADMISSION. ON EXAMINATION TODAY, HEART IS REGULAR IN RATE AND RHYTHM. BILATERAL LUNGS ARE CLEAR TO AUSCULTATION. ABDOMEN IS ROUND, SOFT, AND NOTED WITH TENDERNESS TO THE LEFT AND RIGHT LOWER ABDOMEN. THERE IS A VENTRAL HERNIA PRESENT ABOVE THE UMBILICUS. PATIENT ALSO HAS TENDERNESS TO THAT AREA. NO UPPER OR LOWER EXTREMITY EDEMA NOTED. HIS VITALS THIS MORNING ARE: 98.5-96-20-93%-137/71. LABS WERE OBTAINED. WBC 9.1, RBC 4.99, HGB 15.0, HCT 43.5, PLT COUNT 148, SODIUM 130, POTASSIUM 3.6, CHLORIDE 92, BUN 20, CREATININE 1.06, GLUCOSE 206, CALCIUM 9.1, MAGNESIUM 1.8, AST 31, ALT 43, ALK PHOS 67, TOTAL PROTEIN 6.6, ALBUMIN 2.9. HE IS CURRENTLY RECEIVING D51/2 NORMAL SALINE AT 125ML/HR, ZOSYN 3.375G IV Q8H, ZOFRAN 4MG IV Q4H PRN, MORPHINE SULFATE 2MG IV Q4H PRN, NORCO 10/325MG PO Q6H PRN, OTBS ACHS, HUMULIN R SLIDING SCALE, AND THE POTASSIUM AND MAGNESIUM PROTOCOLS. HE IS SCHEDULED FOR DIAGNOSTIC LAPROSCOPY WITH POSSIBLE OPEN PROCEDURE AND APPENDECTOMY THIS MORNING. WE ARE IN AGREEMENT WITH PLANS. PATIENT WILL BE CHANGED TO INPATIENT STATUS TODAY. OTHERWISE, WE WILL FOLLOW-UP WITH AM LABS AND CONTINUE TO MONITOR. TIME SPENT ON CLINICAL ASSESSMENT, REVIWING LABS AND IMAGING, DECISION MAKING, AND DOCUMENTATION GREATER THAN 45 MINUTES. - Past Medical Family Social History Past Med/Fam/Surg Hx: No changes since H&P Allergies: Allergies Penicillins Allergy (Unknown, Verified 12/07/22 12:16) prednisolone Allergy (Unknown, Verified 01/12/12 17:02) Sulfa (Sulfonamide Antibiotics) [SULFA] Allergy (Unknown, Verified 12/07/22 12:16) - Review of Systems ROS: No change since H&P - Vital Signs and I&O's Vital Signs: Temperature 98.2 F Pulse Rate [Bilateral Radial] 96 Pulse Rate 70 Respiratory Rate 30 Blood Pressure [Right Arm] 137/71 Blood Pressure [Left Arm] 131/69 Blood Pressure 176/81 O2 Sat by Pulse Oximetry 94 Intake and Output: Intake & Output 12/07/22 12/08/22 12/09/22 12/10/22 11:59 11:59 11:59 11:59 Intake Total 5055 / 5055 5077 / 5077 2793 / 2793 Output Total 3700 / 3700 2085 / 2085 1305 / 1305 Balance 1355 / 1355 2992 / 2992 1488 / 1488 - Physical Exam Oriented: Normal Eyes: Normal Ear: Normal Nose: Normal Throat: Normal Respiratory: Diminished Cardiovascular: Normal : Normal Auscultation: Bowel Sounds: Decreased, Other (diffuse tenderness) Palpation: Normal Tenderness: Diffuse (abdominal tendeness and hypo active BS), Other (VENTRAL HERNIA ABOVE UNBILICUS ) Skin: Normal Musculoskeletal: Normal Psychiatric: Normal Mood Description: Calm, Appropriate Affect: Normal Speech Pattern: Clear, Appropriate - Laboratory and Diagnostics Result Diagrams: 12/10/22 04:20 12/10/22 04:20 Labs: 12/08/22 17:16 Urine,[place] Urine Culture - Final 12/08/22 10:58 Peritoneal Fluid Wound Gram Stain - Final 12/08/22 10:58 Peritoneal Fluid Wound Culture - Preliminary Citrobacter Koseri Klebsiella Pneumoniae Laboratory WBC 9.1 X10^3/uL (3.6-10.0) 12/10/22 04:20 RBC 3.74 X10^6/uL (4.7-6.0) L 12/10/22 04:20 Hgb 11.3 g/dL (13.5-18.0) L 12/10/22 04:20 Hct 32.3 % (42.0-54.0) L 12/10/22 04:20 MCV 86.6 fL (80.0-100.0) 12/10/22 04:20 MCH 30.2 pg (27.0-34.0) 12/10/22 04:20 MCHC 34.8 g/dL (33.0-35.0) 12/10/22 04:20 RDW 14.4 % (11.6-16.5) 12/10/22 04:20 Plt Count 144 X10^3/uL (150.0-450.0) L 12/10/22 04:20 Plt Count Comment Decreased (ADEQUATE) 12/09/22 04:20 MPV 8.2 fL (7.4-11.0) 12/10/22 04:20 Neut % (Auto) 88.0 % (42.0-75.0) H 12/10/22 04:20 Lymph % (Auto) 3.1 % (21.0-51.0) L 12/10/22 04:20 [place] % (Auto) 8.4 % (0.0-13.0) 12/10/22 04:20 Eos % (Auto) 0.2 % (0.9-2.9) L 12/10/22 04:20 Baso % (Auto) 0.3 % (0.2-1.0) 12/10/22 04:20 Neut # (Auto) 8.0 x10^3/uL (2.2-4.8) H 12/10/22 04:20 Lymph # (Auto) 0.3 X10^3/uL (1.3-2.9) L 12/10/22 04:20 [place] # (Auto) 0.8 x10^3/uL (0.3-0.8) 12/10/22 04:20 Eos # (Auto) 0.0 x10^3/uL (0.0-0.2) 12/10/22 04:20 Baso # (Auto) 0.0 X10^3/uL (0.0-0.1) 12/10/22 04:20 Absolute Nucleated RBC 0.0 /100WBC 12/10/22 04:20 Total Counted 100 12/09/22 04:20 Neutrophils % (Manual) 68 % (39-76) 12/09/22 04:20 Band Neutrophils % 14 % (0-10) H 12/09/22 04:20 Lymphocytes % (Manual) 7 % (13-43) L 12/09/22 04:20 Monocytes % (Manual) 8 % (4-9) 12/09/22 04:20 Metamyelocytes % 1 12/09/22 04:20 Myelocytes % 2 12/09/22 04:20 Plt Morphology Comment Normal (NORMAL) 12/09/22 04:20 RBC Morphology Normal (NORMAL) 12/09/22 04:20 Sodium 131 mmol/L (136-145) L 12/10/22 04:20 Corrected Sodium 134 mmol/L (136-145) L 12/10/22 04:20 Potassium 3.4 mmol/L (3.5-5.1) L 12/10/22 04:20 Chloride 97 mmol/L (98-107) L 12/10/22 04:20 Carbon Dioxide 26.3 mmol/L (21-32) 12/10/22 04:20 BUN 11 mg/dL (7-18) 12/10/22 04:20 Creatinine 0.64 mg/dL (0.70-1.30) L 12/10/22 04:20 Est GFR (MDRD) Af Amer > 60 (>60) 12/10/22 04:20 Est GFR (MDRD) Non-Af > 60 (>60) 12/10/22 04:20 Glucose 222 mg/dL (65-99) H 12/10/22 04:20 POC Glucose (mg/dL) 211 mg/dL (65-99) H 12/10/22 05:26 Calcium 7.3 mg/dL (8.5-10.1) L 12/10/22 04:20 Corrected Calcium 9.3 mg/dL (8.5-10.1) 12/10/22 04:20 Magnesium 1.9 mg/dL (2.0-2.9) L 12/10/22 04:20 Total Bilirubin 0.40 mg/dL (0.2-1.0) 12/10/22 04:20 AST 42 Units/L (15-37) H 12/10/22 04:20 ALT 47 Units/L (12-78) 12/10/22 04:20 Alkaline Phosphatase 54 Units/L (46-116) 12/10/22 04:20 Total Protein 5.0 g/dL (6.4-8.2) L 12/10/22 04:20 Albumin 1.5 g/dL (3.4-5.0) L 12/10/22 04:20 Globulin 3.5 g/dL (2.5-4.5) 12/10/22 04:20 Albumin/Globulin Ratio 0.4 Ratio (1.1-2.1) L 12/10/22 04:20 Amylase 48 Units/L (25-115) 12/07/22 11:35 Lipase 73 Units/L (73-393) 12/07/22 11:35 Specimen Type Clean catch urine 12/07/22 16:39 Urine Color Yellow (YELLOW) 12/07/22 16:39 Urine Appearance Slightly hazy (CLEAR) 12/07/22 16:39 Urine pH 7.0 (5.0 - 8.0) 12/07/22 16:39 Ur Specific [place] 1.005 (1.000-1.030) 12/07/22 16:39 Urine Protein 2+ (NEGATIVE) 12/07/22 16:39 Urine Glucose (UA) Negative (NEGATIVE) 12/07/22 16:39 Urine Ketones 1+ (NEGATIVE) 12/07/22 16:39 Urine Blood 1+ (NEGATIVE) 12/07/22 16:39 Urine Nitrite Negative (NEGATIVE) 12/07/22 16:39 Urine Bilirubin Negative (NEGATIVE) 12/07/22 16:39 Urine Urobilinogen Normal (NORMAL) 12/07/22 16:39 Ur Leukocyte Esterase 1+ (NEGATIVE) 12/07/22 16:39 Urine RBC 5-10 /HPF (0-3) A 12/07/22 16:39 Urine WBC 3-5 /HPF (0-5) 12/07/22 16:39 Ur Squamous Epith Cells Rare /HPF (NEGATIVE) 12/07/22 16:39 Urine Bacteria Trace /HPF (NEGATIVE) 12/07/22 16:39 Ur Culture Indicated? No/not indicated 12/07/22 16:39 Tissue Pathology To follow 12/08/22 12:45 - Plan (1) Acute appendicitis Status: Acute Qualifiers: Acute appendicitis type: unspecified acute appendicitis type Qualified Code(s): K35.80 - Unspecified acute appendicitis Plan: LAPROSCOPY AND APPENDECTOMY TODAY, D51/2 NORMAL SALINE AT 125ML/HR, ZOSYN 3.375G IV Q8H, ZOFRAN 4MG IV Q4H PRN, MORPHINE SULFATE 2MG IV Q4H PRN, NORCO 10/325MG PO Q6H PRN, OTBS ACHS, HUMULIN R SLIDING SCALE, AND THE POTASSIUM AND MAGNESIUM PROTOCOLS. RESUME HOME MEDS (2) Abdominal pain Status: Acute Qualifiers: Abdominal location: lower abdomen, unspecified Qualified Code(s): R10.30 - Lower abdominal pain, unspecified (3) Nausea & vomiting Status: Acute Qualifiers: Vomiting type: unspecified Qualified Code(s): R11.2 - Nausea with vomiting, unspecified (4) CHF (congestive heart failure) Status: Chronic Qualifiers: Heart failure type: unspecified Heart failure chronicity: chronic Qualified Code(s): I50.9 - Heart failure, unspecified (5) Controlled type 2 diabetes mellitus without complication Status: Chronic Qualifiers: Diabetes mellitus fdc insulin use: with intermediate accountant use Qualified Code(s): E11.9 - Type 2 diabetes mellitus without complications; Z79.4 - MCFP (current) use of insulin (6) Dyslipidemia Status: Chronic (7) Gastroesophageal reflux disease Status: Chronic Qualifiers: Esophagitis presence: esophagitis presence not specified Qualified Code(s): K21.9 - Gastro-esophageal reflux disease without esophagitis (8) Hypertension Status: Chronic Qualifiers: Hypertension type: primary hypertension Qualified Code(s): I10 - Essential (primary) hypertension (9) Obstructive sleep apnea on CPAP Status: Chronic
--- NOTE | 2022-12-10 09:54 | PCM.PROG ---
Progress Note - Progress Note for Day of Date of Exam: 12/09/22 - Subjective Subjective: IS CURRENTLY INPATIENT STATUS FOR TREATMENT OF ACUTE APPENDICITIS, ABDOMINAL PAIN, NAUSEA AND VOMITING. HE IS DAY 1 POST OF DIAGNOSTIC LAPAROSCOPY, EXPLORATORY LAPAROTOMY, AND RIGHT COLECTOMY AND LYSIS OF DENSE ADHESIONS OF THE RIGHT LOWER QUADRANT. POST OPERATIVE DIAGNOSIS INCLUDE A LARGE INFLAMMATORY MASS IN THE RIGHT LOWER QUADRANT WITH ATTACHMENT TO THE BLADDER, TERMINAL ILEUM, AND CECUM WITH PURULENT DRAINAGE AND OLD ABSCESS. HE HAS A PMH OF CHF, DM II, DYSLIPIDEMIA, GERD, HTN, AND OBSTRUCTIVE SLEEP APNEA. HE HAS HAD A CHOLECYSTECTOMY, TONSILLECTOMY, AND HERNIA REPAIR WITH MESH INSERTION IN THE PAST. TODAY, HE IS ALERT AND ORIENTED, LYING IN BED ON MORNING ROUNDS. HE CONTINUES WITH COMPLAINTS OF DIFFUSE ABDOMINAL PAIN. ON EXAMINATION TODAY, HEART IS REGULAR IN RATE AND RHYTHM. BILATERAL LUNGS ARE CLEAR TO AUSCULTATION. ABDOMEN IS ROUND, SOFT, AND NOTED WITH DIFFUSE TENDERNESS. A KENISHA DRAIN IS NOTED. A PAK CATHETER IS NOTED TO BEDSIDE DRAINAGE. NO UPPER OR LOWER EXTREMITY EDEMA NOTED. HIS VITALS THIS MORNING ARE: 98.4-84-25-96%-149/70. LABS WERE OBTAINED. WBC 6.6, RBC 4.19, HGB 12.5, HCT 36.6, PLT COUNT 126, SODIUM 129, POTASSIUM 3.9, CHLORIDE 98, CARBON DIOXIDE 24.9, BUN 17, CREATININE 0.81, GLUCOSE 245, CALCIUM 7.0, AST 36, ALT 46, ALK PHOS 43, TOTAL PROTEIN 4.8, ALBUMIN 1.7. WOUND AND URINE CULTURES ARE PENDING. HE IS CURRENTLY RECEIVING D51/2 NORMAL SALINE AT 125ML/HR, FORTAZ 1G IV Q8H, ZOFRAN 4MG IV Q4H PRN, LOVENOX 40MG SC DAILY, DILAUDID 2MG IV Q4H PRN, NORCO 10/325MG PO Q6H PRN, OTBS ACHS, HUMULIN R SLIDING SCALE, PROTONIX 40MG IV DAILY, AND THE POTASSIUM AND MAGNESIUM PROTOCOLS. HE IS SCHEDULED FOR DIAGNOSTIC LAPROSCOPY WITH POSSIBLE OPEN PROCEDURE AND APPENDECTOMY THIS MORNING. WE ARE IN AGREEMENT WITH PLANS. PATIENT WILL BE CHANGED TO INPATIENT STATUS TODAY. OTHERWISE, WE WILL FOLLOW-UP WITH AM LABS AND CONTINUE TO MONITOR. TIME SPENT ON CLINICAL ASSESSMENT, REVIWING LABS AND IMAGING, DECISION MAKING, AND DOCUMENTATION GREATER THAN 45 MINUTES. - Past Medical Family Social History Past Med/Fam/Surg Hx: No changes since H&P Allergies: Allergies Penicillins Allergy (Unknown, Verified 12/07/22 12:16) prednisolone Allergy (Unknown, Verified 01/12/12 17:02) Sulfa (Sulfonamide Antibiotics) [SULFA] Allergy (Unknown, Verified 12/07/22 12:16) - Review of Systems ROS: No change since H&P - Vital Signs and I&O's Vital Signs: Temperature 98.2 F Pulse Rate [Bilateral Radial] 96 Pulse Rate 70 Respiratory Rate 30 Blood Pressure [Right Arm] 137/71 Blood Pressure [Left Arm] 131/69 Blood Pressure 176/81 O2 Sat by Pulse Oximetry 94 Intake and Output: Intake & Output 12/07/22 12/08/22 12/09/22 12/10/22 11:59 11:59 11:59 11:59 Intake Total 5055 / 5055 5077 / 5077 2793 / 2793 Output Total 3700 / 3700 2085 / 2085 1305 / 1305 Balance 1355 / 1355 2992 / 2992 1488 / 1488 - Physical Exam Oriented: Normal Eyes: Normal Ear: Normal Nose: Normal Throat: Normal Respiratory: Diminished Cardiovascular: Normal : Normal Auscultation: Bowel Sounds: Normal, Decreased, Other (diffuse tenderness) Palpation: Normal Tenderness: Diffuse (abdominal tendeness and hypo active BS), Other (VENTRAL HERNIA ABOVE UNBILICUS ) Skin: Normal Musculoskeletal: Normal Psychiatric: Normal Mood Description: Calm, Appropriate Affect: Normal Speech Pattern: Clear, Appropriate - Laboratory and Diagnostics Result Diagrams: 12/10/22 04:20 12/10/22 04:20 Labs: 12/08/22 17:16 Urine,[place] Urine Culture - Final 12/08/22 10:58 Peritoneal Fluid Wound Gram Stain - Final 12/08/22 10:58 Peritoneal Fluid Wound Culture - Preliminary Citrobacter Koseri Klebsiella Pneumoniae Laboratory WBC 9.1 X10^3/uL (3.6-10.0) 12/10/22 04:20 RBC 3.74 X10^6/uL (4.7-6.0) L 12/10/22 04:20 Hgb 11.3 g/dL (13.5-18.0) L 12/10/22 04:20 Hct 32.3 % (42.0-54.0) L 12/10/22 04:20 MCV 86.6 fL (80.0-100.0) 12/10/22 04:20 MCH 30.2 pg (27.0-34.0) 12/10/22 04:20 MCHC 34.8 g/dL (33.0-35.0) 12/10/22 04:20 RDW 14.4 % (11.6-16.5) 12/10/22 04:20 Plt Count 144 X10^3/uL (150.0-450.0) L 12/10/22 04:20 Plt Count Comment Decreased (ADEQUATE) 12/09/22 04:20 MPV 8.2 fL (7.4-11.0) 12/10/22 04:20 Neut % (Auto) 88.0 % (42.0-75.0) H 12/10/22 04:20 Lymph % (Auto) 3.1 % (21.0-51.0) L 12/10/22 04:20 [place] % (Auto) 8.4 % (0.0-13.0) 12/10/22 04:20 Eos % (Auto) 0.2 % (0.9-2.9) L 12/10/22 04:20 Baso % (Auto) 0.3 % (0.2-1.0) 12/10/22 04:20 Neut # (Auto) 8.0 x10^3/uL (2.2-4.8) H 12/10/22 04:20 Lymph # (Auto) 0.3 X10^3/uL (1.3-2.9) L 12/10/22 04:20 [place] # (Auto) 0.8 x10^3/uL (0.3-0.8) 12/10/22 04:20 Eos # (Auto) 0.0 x10^3/uL (0.0-0.2) 12/10/22 04:20 Baso # (Auto) 0.0 X10^3/uL (0.0-0.1) 12/10/22 04:20 Absolute Nucleated RBC 0.0 /100WBC 12/10/22 04:20 Total Counted 100 12/09/22 04:20 Neutrophils % (Manual) 68 % (39-76) 12/09/22 04:20 Band Neutrophils % 14 % (0-10) H 12/09/22 04:20 Lymphocytes % (Manual) 7 % (13-43) L 12/09/22 04:20 Monocytes % (Manual) 8 % (4-9) 12/09/22 04:20 Metamyelocytes % 1 12/09/22 04:20 Myelocytes % 2 12/09/22 04:20 Plt Morphology Comment Normal (NORMAL) 12/09/22 04:20 RBC Morphology Normal (NORMAL) 12/09/22 04:20 Sodium 131 mmol/L (136-145) L 12/10/22 04:20 Corrected Sodium 134 mmol/L (136-145) L 12/10/22 04:20 Potassium 3.4 mmol/L (3.5-5.1) L 12/10/22 04:20 Chloride 97 mmol/L (98-107) L 12/10/22 04:20 Carbon Dioxide 26.3 mmol/L (21-32) 12/10/22 04:20 BUN 11 mg/dL (7-18) 12/10/22 04:20 Creatinine 0.64 mg/dL (0.70-1.30) L 12/10/22 04:20 Est GFR (MDRD) Af Amer > 60 (>60) 12/10/22 04:20 Est GFR (MDRD) Non-Af > 60 (>60) 12/10/22 04:20 Glucose 222 mg/dL (65-99) H 12/10/22 04:20 POC Glucose (mg/dL) 211 mg/dL (65-99) H 12/10/22 05:26 Calcium 7.3 mg/dL (8.5-10.1) L 12/10/22 04:20 Corrected Calcium 9.3 mg/dL (8.5-10.1) 12/10/22 04:20 Magnesium 1.9 mg/dL (2.0-2.9) L 12/10/22 04:20 Total Bilirubin 0.40 mg/dL (0.2-1.0) 12/10/22 04:20 AST 42 Units/L (15-37) H 12/10/22 04:20 ALT 47 Units/L (12-78) 12/10/22 04:20 Alkaline Phosphatase 54 Units/L (46-116) 12/10/22 04:20 Total Protein 5.0 g/dL (6.4-8.2) L 12/10/22 04:20 Albumin 1.5 g/dL (3.4-5.0) L 12/10/22 04:20 Globulin 3.5 g/dL (2.5-4.5) 12/10/22 04:20 Albumin/Globulin Ratio 0.4 Ratio (1.1-2.1) L 12/10/22 04:20 Amylase 48 Units/L (25-115) 12/07/22 11:35 Lipase 73 Units/L (73-393) 12/07/22 11:35 Specimen Type Clean catch urine 12/07/22 16:39 Urine Color Yellow (YELLOW) 12/07/22 16:39 Urine Appearance Slightly hazy (CLEAR) 12/07/22 16:39 Urine pH 7.0 (5.0 - 8.0) 12/07/22 16:39 Ur Specific [place] 1.005 (1.000-1.030) 12/07/22 16:39 Urine Protein 2+ (NEGATIVE) 12/07/22 16:39 Urine Glucose (UA) Negative (NEGATIVE) 12/07/22 16:39 Urine Ketones 1+ (NEGATIVE) 12/07/22 16:39 Urine Blood 1+ (NEGATIVE) 12/07/22 16:39 Urine Nitrite Negative (NEGATIVE) 12/07/22 16:39 Urine Bilirubin Negative (NEGATIVE) 12/07/22 16:39 Urine Urobilinogen Normal (NORMAL) 12/07/22 16:39 Ur Leukocyte Esterase 1+ (NEGATIVE) 12/07/22 16:39 Urine RBC 5-10 /HPF (0-3) A 12/07/22 16:39 Urine WBC 3-5 /HPF (0-5) 12/07/22 16:39 Ur Squamous Epith Cells Rare /HPF (NEGATIVE) 12/07/22 16:39 Urine Bacteria Trace /HPF (NEGATIVE) 12/07/22 16:39 Ur Culture Indicated? No/not indicated 12/07/22 16:39 Tissue Pathology To follow 12/08/22 12:45 - Plan (1) Acute appendicitis Status: Acute Qualifiers: Acute appendicitis type: unspecified acute appendicitis type Qualified Code(s): K35.80 - Unspecified acute appendicitis Plan: DAY 1 POST OP, D51/2 NORMAL SALINE AT 125ML/HR, FORTAZ 1G IV Q8H, ZOFRAN 4MG IV Q4H PRN, LOVENOX 40MG SC DAILY, DILAUDID 2MG IV Q4H PRN, NORCO 10/325MG PO Q6H PRN, OTBS ACHS, HUMULIN R SLIDING SCALE, PROTONIX 40MG IV DAILY, AND THE POTASSIUM AND MAGNESIUM PROTOCOLS. (2) Abdominal pain Status: Acute Qualifiers: Abdominal location: lower abdomen, unspecified Qualified Code(s): R10.30 - Lower abdominal pain, unspecified (3) Nausea & vomiting Status: Acute Qualifiers: Vomiting type: unspecified Qualified Code(s): R11.2 - Nausea with vomiting, unspecified (4) CHF (congestive heart failure) Status: Chronic Qualifiers: Heart failure type: unspecified Heart failure chronicity: chronic Qualified Code(s): I50.9 - Heart failure, unspecified (5) Controlled type 2 diabetes mellitus without complication Status: Chronic Qualifiers: Diabetes mellitus [place] insulin use: with [place] [facility] use Qualified Code(s): E11.9 - Type 2 diabetes mellitus without complications; Z79.4 - half-way (current) use of insulin (6) Dyslipidemia Status: Chronic (7) Gastroesophageal reflux disease Status: Chronic Qualifiers: Esophagitis presence: esophagitis presence not specified Qualified Code(s): K21.9 - Gastro-esophageal reflux disease without esophagitis (8) Hypertension Status: Chronic Qualifiers: Hypertension type: primary hypertension Qualified Code(s): I10 - Essential (primary) hypertension (9) Obstructive sleep apnea on CPAP Status: Chronic
[2022-12-10] MEDS: NovoLIN R (or HumuLIN R) SUBCUT PRN ×2 (11:22→20:48)
[2022-12-10] MEDS: NORCO 10/325 TAB PO PRN (11:23)
[2022-12-10] MEDS: K-DUR TAB 20 MEQ PO PRN (14:26)
[2022-12-10] MEDS ORDERED: MAALOX or MYLANTA PO PRN (21:00)
[2022-12-10] MEDS ORDERED: PHENERGAN SUPP 25 MG PR PRN (22:50)
[2022-12-11] MEDS: ZOFRAN INJ 4 MG VIAL IVP PRN (02:00)
[2022-12-11] MEDS: D5 1/2 NS 1,000 ML 1,000 ML IV SCH ×3 (05:02→17:30)
[2022-12-11 05:30] LABS: BASOPHILS % (AUTO) 0.2 % (0.2-1.0); EOSINOPHILS # (AUTO) 0.1 x10^3/uL (0.0-0.2); EOSINOPHILS % (AUTO) 0.6 % (0.9-2.9); HEMATOCRIT 36.7 % (42.0-54.0); HEMOGLOBIN 12.7 g/dL (13.5-18.0); LYMPHOCYTES # (AUTO) 0.5 X10^3/uL (1.3-2.9); LYMPHOCYTES % (AUTO) 4.1 % (21.0-51.0); MEAN CORPUSCULAR HEMOGLOBIN 29.9 pg (27.0-34.0); MEAN CORPUSCULAR HGB CONC 34.5 g/dL (33.0-35.0); MEAN CORPUSCULAR VOLUME 86.9 fL (80.0-100.0); MEAN PLATELET VOLUME 8.7 fL (7.4-11.0); MONOCYTES # (AUTO) 1.2 x10^3/uL (0.3-0.8); MONOCYTES % (AUTO) 10.5 % (0.0-13.0); NEUTROPHILS # (AUTO) 9.8 x10^3/uL (2.2-4.8); NEUTROPHILS % (AUTO) 84.6 % (42.0-75.0); RED BLOOD COUNT 4.23 X10^6/uL (4.7-6.0); RED CELL DISTRIBUTION WIDTH 14.6 % (11.6-16.5)
[2022-12-11 05:33] LABS: ALANINE AMINOTRANSFERASE 60 Units/L (12-78); ALBUMIN 1.8 g/dL (3.4-5.0); ALKALINE PHOSPHATASE 60 Units/L (46-116); ASPARTATE AMINO TRANSFERASE 50 Units/L (15-37); BLOOD UREA NITROGEN 14 mg/dL (7-18); CALCIUM 7.6 mg/dL (8.5-10.1); CARBON DIOXIDE 26.3 mmol/L (21-32); CHLORIDE 98 mmol/L (98-107); COR CA(FOR HYPOALB) 9.4 mg/dL (8.5-10.1); COR NA(FOR HYPERGLY) 136 mmol/L (136-145); CREATININE 0.61 mg/dL (0.70-1.30); MAGNESIUM 2.1 mg/dL (2.0-2.9); SODIUM 132 mmol/L (136-145); eGFR NON BLACK RACES > 60 (>60)
--- NOTE | 2022-12-11 05:35 | RAD ---
STUDY: KUBCOMPARISON: NoneHISTORY: NGT PLACEMENTFINDINGS:The tip of the enteric tube is seen below the diaphragm in the region of the stomach.IMPRESSION:THE TIP OF THE ENTERIC TUBE IS IN THE REGION OF THE STOMACH. br.br
[2022-12-11] MEDS: FORTAZ or TAZICEF VIAL INJ 1 G in NS 100 ML IV 100 ML IV SCH ×3 (05:36→21:15)
[2022-12-11] MEDS: NovoLIN R (or HumuLIN R) SUBCUT PRN ×2 (05:51→21:15)
[2022-12-11 06:06] LABS: WHITE BLOOD COUNT 11.6 X10^3/uL (3.6-10.0)
[2022-12-11 06:21] LABS: BAND NEUTROPHILS % 3 % (0-10); PLATELET MORPHOLOGY COMMENT NORMAL (NORMAL); TARGET CELLS SLIGHT
--- NOTE | 2022-12-11 08:00 | DR.PROGNOT ---
HOSPITAL PROGRESS NOTE Progress Note for Day of: Progress Note Date: 12/11/22 Chief Complaint Chief Complaint: post op RT colectomy for ruptured appendix and inflammatory mass RLQ with dense attachments to bladder and small bowel . was distended and vomiting after removing NGT , had to put it back and drained 400cc. WBC 11.6. K, BUN/Creat all normal . temp 98.8 Past Medical Family Social History Past Med/Fam/Surg Hx: No changes since H&P Allergies: Allergies Penicillins Allergy (Unknown, Verified 12/07/22 12:16) prednisolone Allergy (Unknown, Verified 01/12/12 17:02) Sulfa (Sulfonamide Antibiotics) [SULFA] Allergy (Unknown, Verified 12/07/22 12:16) Review Of Systems ROS: No change since H&P Vital Signs Vital Signs: Temperature 98.8 F Pulse Rate [Bilateral Radial] 96 Pulse Rate 69 Respiratory Rate 21 Blood Pressure [Right Arm] 137/71 Blood Pressure [Left Arm] 131/69 Blood Pressure 161/76 O2 Sat by Pulse Oximetry 96 Physical Exam Oriented: Normal Eyes: Normal Ear: Normal Nose: Normal Throat: Normal Respiratory: Diminished Cardiovascular: Normal : Normal GI:Auscultation: Decreased GI:Palpation: Normal GI: Tenderness: Diffuse (abdominal tendeness and hypo active BS ) and Other (VENTRAL HERNIA ABOVE UNBILICUS ) Skin: Normal Musculoskeletal: Normal Psychiatric: Normal Mood Description: Calm and Appropriate Affect: Normal Speech Pattern: Clear and Appropriate Laboratory and Diagnostics Result Diagrams: 12/11/22 04:26 12/11/22 04:26 Labs: 12/08/22 17:16 Urine,[place] Urine Culture - Final 12/08/22 10:58 Peritoneal Fluid Wound Gram Stain - Final 12/08/22 10:58 Peritoneal Fluid Wound Culture - Preliminary Citrobacter Koseri Klebsiella Pneumoniae Laboratory WBC 11.6 X10^3/uL (3.6-10.0) H 12/11/22 04:26 RBC 4.23 X10^6/uL (4.7-6.0) L 12/11/22 04:26 Hgb 12.7 g/dL (13.5-18.0) L 12/11/22 04:26 Hct 36.7 % (42.0-54.0) L 12/11/22 04:26 MCV 86.9 fL (80.0-100.0) 12/11/22 04:26 MCH 29.9 pg (27.0-34.0) 12/11/22 04:26 MCHC 34.5 g/dL (33.0-35.0) 12/11/22 04:26 RDW 14.6 % (11.6-16.5) 12/11/22 04:26 Plt Count 118 X10^3/uL (150.0-450.0) L 12/11/22 04:26 Plt Count Comment Decreased (ADEQUATE) 12/11/22 04:26 MPV 8.7 fL (7.4-11.0) 12/11/22 04:26 Neut % (Auto) 84.6 % (42.0-75.0) H 12/11/22 04:26 Lymph % (Auto) 4.1 % (21.0-51.0) L 12/11/22 04:26 [place] % (Auto) 10.5 % (0.0-13.0) 12/11/22 04:26 Eos % (Auto) 0.6 % (0.9-2.9) L 12/11/22 04:26 Baso % (Auto) 0.2 % (0.2-1.0) 12/11/22 04:26 Neut # (Auto) 9.8 x10^3/uL (2.2-4.8) H 12/11/22 04:26 Lymph # (Auto) 0.5 X10^3/uL (1.3-2.9) L 12/11/22 04:26 [place] # (Auto) 1.2 x10^3/uL (0.3-0.8) H 12/11/22 04:26 Eos # (Auto) 0.1 x10^3/uL (0.0-0.2) 12/11/22 04:26 Baso # (Auto) 0.0 X10^3/uL (0.0-0.1) 12/11/22 04:26 Absolute Nucleated RBC 0.1 /100WBC 12/11/22 04:26 Total Counted 100 12/11/22 04:26 Neutrophils % (Manual) 80 % (39-76) H 12/11/22 04:26 Band Neutrophils % 3 % (0-10) 12/11/22 04:26 Lymphocytes % (Manual) 5 % (13-43) L 12/11/22 04:26 Monocytes % (Manual) 12 % (4-9) H 12/11/22 04:26 Metamyelocytes % 1 12/09/22 04:20 Myelocytes % 2 12/09/22 04:20 Plt Clumps, EDTA Rare 12/11/22 04:26 Plt Morphology Comment Normal (NORMAL) 12/11/22 04:26 RBC Morphology Abnormal (NORMAL) 12/11/22 04:26 Target Cells Slight A 12/11/22 04:26 Sodium 132 mmol/L (136-145) L 12/11/22 04:26 Corrected Sodium 136 mmol/L (136-145) 12/11/22 04:26 Potassium 4.1 mmol/L (3.5-5.1) 12/11/22 04:26 Chloride 98 mmol/L (98-107) 12/11/22 04:26 Carbon Dioxide 26.3 mmol/L (21-32) 12/11/22 04:26 BUN 14 mg/dL (7-18) 12/11/22 04:26 Creatinine 0.61 mg/dL (0.70-1.30) L 12/11/22 04:26 Est GFR (MDRD) Af Amer > 60 (>60) 12/11/22 04:26 Est GFR (MDRD) Non-Af > 60 (>60) 12/11/22 04:26 Glucose 267 mg/dL (65-99) H 12/11/22 04:26 POC Glucose (mg/dL) 251 mg/dL (65-99) H 12/11/22 05:03 Calcium 7.6 mg/dL (8.5-10.1) L 12/11/22 04:26 Corrected Calcium 9.4 mg/dL (8.5-10.1) 12/11/22 04:26 Magnesium 2.1 mg/dL (2.0-2.9) 12/11/22 04:26 Total Bilirubin 0.80 mg/dL (0.2-1.0) 12/11/22 04:26 AST 50 Units/L (15-37) H 12/11/22 04:26 ALT 60 Units/L (12-78) 12/11/22 04:26 Alkaline Phosphatase 60 Units/L (46-116) 12/11/22 04:26 Total Protein 5.0 g/dL (6.4-8.2) L 12/11/22 04:26 Albumin 1.8 g/dL (3.4-5.0) L 12/11/22 04:26 Globulin 3.2 g/dL (2.5-4.5) 12/11/22 04:26 Albumin/Globulin Ratio 0.6 Ratio (1.1-2.1) L 12/11/22 04:26 Amylase 48 Units/L (25-115) 12/07/22 11:35 Lipase 73 Units/L (73-393) 12/07/22 11:35 Specimen Type Clean catch urine 12/07/22 16:39 Urine Color Yellow (YELLOW) 12/07/22 16:39 Urine Appearance Slightly hazy (CLEAR) 12/07/22 16:39 Urine pH 7.0 (5.0 - 8.0) 12/07/22 16:39 Ur Specific [place] 1.005 (1.000-1.030) 12/07/22 16:39 Urine Protein 2+ (NEGATIVE) 12/07/22 16:39 Urine Glucose (UA) Negative (NEGATIVE) 12/07/22 16:39 Urine Ketones 1+ (NEGATIVE) 12/07/22 16:39 Urine Blood 1+ (NEGATIVE) 12/07/22 16:39 Urine Nitrite Negative (NEGATIVE) 12/07/22 16:39 Urine Bilirubin Negative (NEGATIVE) 12/07/22 16:39 Urine Urobilinogen Normal (NORMAL) 12/07/22 16:39 Ur Leukocyte Esterase 1+ (NEGATIVE) 12/07/22 16:39 Urine RBC 5-10 /HPF (0-3) A 12/07/22 16:39 Urine WBC 3-5 /HPF (0-5) 12/07/22 16:39 Ur Squamous Epith Cells Rare /HPF (NEGATIVE) 12/07/22 16:39 Urine Bacteria Trace /HPF (NEGATIVE) 12/07/22 16:39 Ur Culture Indicated? No/not indicated 12/07/22 16:39 Tissue Pathology To follow 12/08/22 12:45 Assessment and Plan 1: ruptured appendicitis with inflammatory mass RLQ with dense adhesions to the bladder and small bowel . s/p laparoscopy , laparotomy , RT colectomy . same PO care , OOB , DVT prophylaxis , IV ABT , to keep NGT today . KUB, Problem Patient Problems: Patient Problems (Updated 12/08/22 @ 08:37 by Cooper Kimball) Acute appendicitis (Acute) K35.80 CHF (congestive heart failure) (Chronic) I50.9 Nausea & vomiting (Acute) R11.2 Abdominal pain (Acute) R10.9 Controlled type 2 diabetes mellitus without complication (Chronic) E11.9 Dyslipidemia (Chronic) E78.5 Gastroesophageal reflux disease (Chronic) K21.9 Pt states insurance will not pay for Omeprazole twice a day Hypertension (Chronic) I10 Long standing hx of HTN on multiple heart and b/p meds. Obstructive sleep apnea on CPAP (Chronic) G47.33, Z99.89
[2022-12-11] MEDS: ALBUMIN HUMAN 25%- 100 ML 100 ML IV SCH (08:19)
[2022-12-11] MEDS: LOVENOX INJ 40 MG SYR SC SCH (08:20)
[2022-12-11] MEDS: PROTONIX INJ 40 MG VIAL IVP SCH (08:20)
--- NOTE | 2022-12-11 08:41 | RAD ---
HISTORYBowel resection abdomen distensionSTUDYKUBCOMPARISONEarlier this dateFINDINGSThere is moderate gaseous distention of bowel primarily small intestine. Colon gas is present, however. Surgical clips are noted in the lower abdomen. NG tube is coiled in the stomach.IMPRESSIONIntestinal gas pattern described is consistent with ileus or partial/early small bowel obstruction.Electronically signed by: KOLE ALVARENGA (Dec 11, 2022 08:40:05)
[2022-12-11] MEDS ORDERED: CATAPRES-TTS-3 TD SCH (09:00)
[2022-12-11] MEDS ORDERED: VASOTEC INJ 2.5 MG VIAL IVP PRN (10:37)
[2022-12-11] MEDS: ALPHAGAN-P OPHTH 1 DOSE EACHEYE SCH ×2 (16:07→22:33)
[2022-12-11] MEDS: SNACK - Diabetic Appropriate PO SCH (20:30)
[2022-12-12] MEDS: D5 1/2 NS 1,000 ML 1,000 ML IV SCH ×2 (00:59→09:51)
[2022-12-12 05:02] LABS: BASOPHILS % (AUTO) 0.4 % (0.2-1.0); EOSINOPHILS # (AUTO) 0.2 x10^3/uL (0.0-0.2); EOSINOPHILS % (AUTO) 2.9 % (0.9-2.9); HEMATOCRIT 31.4 % (42.0-54.0); HEMOGLOBIN 10.9 g/dL (13.5-18.0); LYMPHOCYTES # (AUTO) 0.7 X10^3/uL (1.3-2.9); LYMPHOCYTES % (AUTO) 11.5 % (21.0-51.0); MEAN CORPUSCULAR HEMOGLOBIN 29.9 pg (27.0-34.0); MEAN CORPUSCULAR HGB CONC 34.6 g/dL (33.0-35.0); MEAN CORPUSCULAR VOLUME 86.4 fL (80.0-100.0); MEAN PLATELET VOLUME 7.9 fL (7.4-11.0); MONOCYTES # (AUTO) 1.4 x10^3/uL (0.3-0.8); MONOCYTES % (AUTO) 22.6 % (0.0-13.0); NEUTROPHILS % (AUTO) 62.6 % (42.0-75.0); RED BLOOD COUNT 3.64 X10^6/uL (4.7-6.0); RED CELL DISTRIBUTION WIDTH 14.4 % (11.6-16.5); WHITE BLOOD COUNT 6.4 X10^3/uL (3.6-10.0)
[2022-12-12 05:17] LABS: ALANINE AMINOTRANSFERASE 56 Units/L (12-78); ALKALINE PHOSPHATASE 53 Units/L (46-116); ASPARTATE AMINO TRANSFERASE 32 Units/L (15-37); BLOOD UREA NITROGEN 10 mg/dL (7-18); CALCIUM 7.7 mg/dL (8.5-10.1); CARBON DIOXIDE 30.7 mmol/L (21-32); CHLORIDE 102 mmol/L (98-107); COR CA(FOR HYPOALB) 9.3 mg/dL (8.5-10.1); COR NA(FOR HYPERGLY) 140 mmol/L (136-145); CREATININE 0.63 mg/dL (0.70-1.30); SODIUM 137 mmol/L (136-145); eGFR NON BLACK RACES > 60 (>60)
[2022-12-12] MEDS: FORTAZ or TAZICEF VIAL INJ 1 G in NS 100 ML IV 100 ML IV SCH ×3 (05:47→21:05)
[2022-12-12] MEDS: NovoLIN R (or HumuLIN R) SUBCUT PRN ×2 (05:48→20:00)
[2022-12-12 05:54] LABS: BAND NEUTROPHILS % 3 % (0-10); METAMYELOCYTES % 4
[2022-12-12 05:56] LABS: TARGET CELLS SLIGHT
[2022-12-12 05:58] LABS: GIANT PLATELET RARE; PLATELET MORPHOLOGY COMMENT ABNORMAL (NORMAL)
[2022-12-12] MEDS: ALBUMIN HUMAN 25%- 100 ML 100 ML IV SCH (08:33)
[2022-12-12] MEDS: LOVENOX INJ 40 MG SYR SC SCH (08:34)
[2022-12-12] MEDS: MAGNESIUM SULFATE 1 GRAM/100 mL PREMIX 1 G/100 ML BAG IV PRN ×2 (08:35→10:31)
[2022-12-12] MEDS: PROTONIX INJ 40 MG VIAL IVP SCH (08:35)
--- NOTE | 2022-12-12 10:07 | DR.PROGNOT ---
HOSPITAL PROGRESS NOTE Progress Note for Day of: Progress Note Date: 12/12/22 Chief Complaint Chief Complaint: much better today.. passing flatus , no BM . normal WBC and K . BP is slightly elevated . afebrile Past Medical Family Social History Past Med/Fam/Surg Hx: No changes since H&P Allergies: Allergies Penicillins Allergy (Unknown, Verified 12/07/22 12:16) prednisolone Allergy (Unknown, Verified 01/12/12 17:02) Sulfa (Sulfonamide Antibiotics) [SULFA] Allergy (Unknown, Verified 12/07/22 12:16) Review Of Systems ROS: No change since H&P Vital Signs Vital Signs: Temperature 98.7 F Pulse Rate [Bilateral Radial] 96 Pulse Rate 69 Respiratory Rate 22 Blood Pressure [Right Arm] 137/71 Blood Pressure [Left Arm] 131/69 Blood Pressure 174/79 O2 Sat by Pulse Oximetry 95 Physical Exam Oriented: Normal Eyes: Normal Ear: Normal Nose: Normal Throat: Normal Respiratory: Diminished Cardiovascular: Normal : Normal GI:Auscultation: Decreased GI:Palpation: Normal GI: Tenderness: Diffuse (abdominal tendeness and active BS ) and Other (VENTRAL HERNIA ABOVE UNBILICUS ) Skin: Normal Musculoskeletal: Normal Psychiatric: Normal Mood Description: Calm and Appropriate Affect: Normal Speech Pattern: Clear and Appropriate Laboratory and Diagnostics Result Diagrams: 12/12/22 04:15 12/12/22 04:15 Labs: 12/08/22 10:58 Peritoneal Fluid Wound Gram Stain - Final 12/08/22 10:58 Peritoneal Fluid Wound Culture - Final Citrobacter Koseri Klebsiella Pneumoniae Proteus Mirabilis 12/08/22 17:16 Urine,[place] Urine Culture - Final Laboratory WBC 6.4 X10^3/uL (3.6-10.0) 12/12/22 04:15 RBC 3.64 X10^6/uL (4.7-6.0) L 12/12/22 04:15 Hgb 10.9 g/dL (13.5-18.0) L 12/12/22 04:15 Hct 31.4 % (42.0-54.0) L 12/12/22 04:15 MCV 86.4 fL (80.0-100.0) 12/12/22 04:15 MCH 29.9 pg (27.0-34.0) 12/12/22 04:15 MCHC 34.6 g/dL (33.0-35.0) 12/12/22 04:15 RDW 14.4 % (11.6-16.5) 12/12/22 04:15 Plt Count 192 X10^3/uL (150.0-450.0) 12/12/22 04:15 Plt Count Comment Adequate (ADEQUATE) 12/12/22 04:15 MPV 7.9 fL (7.4-11.0) 12/12/22 04:15 Neut % (Auto) 62.6 % (42.0-75.0) 12/12/22 04:15 Lymph % (Auto) 11.5 % (21.0-51.0) L 12/12/22 04:15 [place] % (Auto) 22.6 % (0.0-13.0) H 12/12/22 04:15 Eos % (Auto) 2.9 % (0.9-2.9) 12/12/22 04:15 Baso % (Auto) 0.4 % (0.2-1.0) 12/12/22 04:15 Neut # (Auto) 4.0 x10^3/uL (2.2-4.8) 12/12/22 04:15 Lymph # (Auto) 0.7 X10^3/uL (1.3-2.9) L 12/12/22 04:15 [place] # (Auto) 1.4 x10^3/uL (0.3-0.8) H 12/12/22 04:15 Eos # (Auto) 0.2 x10^3/uL (0.0-0.2) 12/12/22 04:15 Baso # (Auto) 0.0 X10^3/uL (0.0-0.1) 12/12/22 04:15 Absolute Nucleated RBC 0.0 /100WBC 12/12/22 04:15 Total Counted 100 12/12/22 04:15 Neutrophils % (Manual) 55 % (39-76) 12/12/22 04:15 Band Neutrophils % 3 % (0-10) 12/12/22 04:15 Lymphocytes % (Manual) 11 % (13-43) L 12/12/22 04:15 Monocytes % (Manual) 23 % (4-9) H 12/12/22 04:15 Eosinophils % (Manual) 4 % (0-6) 12/12/22 04:15 Metamyelocytes % 4 12/12/22 04:15 Myelocytes % 2 12/09/22 04:20 Plt Clumps, EDTA Rare 12/12/22 04:15 Giant Platelets Rare 12/12/22 04:15 Plt Morphology Comment Abnormal (NORMAL) 12/12/22 04:15 RBC Morphology Abnormal (NORMAL) 12/12/22 04:15 Target Cells Slight A 12/12/22 04:15 Sodium 137 mmol/L (136-145) 12/12/22 04:15 Corrected Sodium 140 mmol/L (136-145) 12/12/22 04:15 Potassium 3.1 mmol/L (3.5-5.1) L 12/12/22 04:15 Chloride 102 mmol/L (98-107) 12/12/22 04:15 Carbon Dioxide 30.7 mmol/L (21-32) 12/12/22 04:15 BUN 10 mg/dL (7-18) 12/12/22 04:15 Creatinine 0.63 mg/dL (0.70-1.30) L 12/12/22 04:15 Est GFR (MDRD) Af Amer > 60 (>60) 12/12/22 04:15 Est GFR (MDRD) Non-Af > 60 (>60) 12/12/22 04:15 Glucose 217 mg/dL (65-99) H 12/12/22 04:15 POC Glucose (mg/dL) 216 mg/dL (65-99) H 12/12/22 05:32 Calcium 7.7 mg/dL (8.5-10.1) L 12/12/22 04:15 Corrected Calcium 9.3 mg/dL (8.5-10.1) 12/12/22 04:15 Magnesium 1.9 mg/dL (2.0-2.9) L 12/12/22 04:15 Total Bilirubin 0.70 mg/dL (0.2-1.0) 12/12/22 04:15 AST 32 Units/L (15-37) 12/12/22 04:15 ALT 56 Units/L (12-78) 12/12/22 04:15 Alkaline Phosphatase 53 Units/L (46-116) 12/12/22 04:15 Total Protein 5.0 g/dL (6.4-8.2) L 12/12/22 04:15 Albumin 2.0 g/dL (3.4-5.0) L 12/12/22 04:15 Globulin 3.0 g/dL (2.5-4.5) 12/12/22 04:15 Albumin/Globulin Ratio 0.7 Ratio (1.1-2.1) L 12/12/22 04:15 Amylase 48 Units/L (25-115) 12/07/22 11:35 Lipase 73 Units/L (73-393) 12/07/22 11:35 Specimen Type Clean catch urine 12/07/22 16:39 Urine Color Yellow (YELLOW) 12/07/22 16:39 Urine Appearance Slightly hazy (CLEAR) 12/07/22 16:39 Urine pH 7.0 (5.0 - 8.0) 12/07/22 16:39 Ur Specific [place] 1.005 (1.000-1.030) 12/07/22 16:39 Urine Protein 2+ (NEGATIVE) 12/07/22 16:39 Urine Glucose (UA) Negative (NEGATIVE) 12/07/22 16:39 Urine Ketones 1+ (NEGATIVE) 12/07/22 16:39 Urine Blood 1+ (NEGATIVE) 12/07/22 16:39 Urine Nitrite Negative (NEGATIVE) 12/07/22 16:39 Urine Bilirubin Negative (NEGATIVE) 12/07/22 16:39 Urine Urobilinogen Normal (NORMAL) 12/07/22 16:39 Ur Leukocyte Esterase 1+ (NEGATIVE) 12/07/22 16:39 Urine RBC 5-10 /HPF (0-3) A 12/07/22 16:39 Urine WBC 3-5 /HPF (0-5) 12/07/22 16:39 Ur Squamous Epith Cells Rare /HPF (NEGATIVE) 12/07/22 16:39 Urine Bacteria Trace /HPF (NEGATIVE) 12/07/22 16:39 Ur Culture Indicated? No/not indicated 12/07/22 16:39 Tissue Pathology To follow 12/08/22 12:45 Assessment and Plan 1: ruptured appendicitis with inflammatory mass RLQ with dense adhesions to the bladder and small bowel . s/p laparoscopy , laparotomy , RT colectomy . same PO care , OOB , DVT prophylaxis , IV ABT , to D/C NGT and Curtis . clear liquid .. Problem Patient Problems: Patient Problems (Updated 12/08/22 @ 08:37 by Cooper Kimball) Acute appendicitis (Acute) K35.80 CHF (congestive heart failure) (Chronic) I50.9 Nausea & vomiting (Acute) R11.2 Abdominal pain (Acute) R10.9 Controlled type 2 diabetes mellitus without complication (Chronic) E11.9 Dyslipidemia (Chronic) E78.5 Gastroesophageal reflux disease (Chronic) K21.9 Pt states insurance will not pay for Omeprazole twice a day Hypertension (Chronic) I10 Long standing hx of HTN on multiple heart and b/p meds. Obstructive sleep apnea on CPAP (Chronic) G47.33, Z99.89
--- NOTE | 2022-12-12 10:45 | RAD ---
HISTORYDistensionSTUDYKUBCOMPARISON December 11, 2022FINDINGSPersistent intestinal gaseous dilatation small-bowel predominant. There is no evidence for developing mass, fluid collection or other new abnormality.IMPRESSIONFindings remain consistent with ileus or partial SBO.Electronically signed by: KOLE ALVARENGA (Dec 12, 2022 10:42:52)
[2022-12-12] MEDS ORDERED: CATAPRES-TTS-3 TD SCH (11:00)
[2022-12-12] MEDS: LR 1,000 ML IV 1,000 ML IV SCH (11:54)
[2022-12-12] MEDS: HYDROCHLOROTHIAZIDE 25 MG TAB PO SCH ×2 (11:56→20:51)
[2022-12-12] MEDS: PROCARDIA XL 24-hr PO SCH ×2 (11:56→20:51)
[2022-12-12] MEDS: BENICAR TAB 40 MG PO SCH ×2 (11:56→20:51)
[2022-12-12] MEDS: K-DUR TAB 20 MEQ PO PRN (12:16)
[2022-12-12] MEDS: PATIENT'S HOME MEDICATION EACHEYE SCH ×2 (17:00→20:55)
[2022-12-12] MEDS: K-RIDER 10 MEQ/NS 100 ML 10 MEQ/100 ML BAG IV PRN ×2 (18:20→18:25)
[2022-12-12 20:06] VITALS: BMI 26.9
[2022-12-12] MEDS: SNACK - Diabetic Appropriate PO SCH (20:15)
[2022-12-12] MEDS: NORCO 10/325 TAB PO PRN (20:51)
[2022-12-12] MEDS: XALATAN EACHEYE SCH (21:05)
[2022-12-12] MEDS ORDERED: D50W ABBOJECT SYR IV ONE (23:58)
[2022-12-13] MEDS: LR 1,000 ML IV 1,000 ML IV SCH ×4 (00:54→17:01)
[2022-12-13 04:45] LABS: BASOPHILS % (AUTO) 0.5 % (0.2-1.0); EOSINOPHILS # (AUTO) 0.2 x10^3/uL (0.0-0.2); HEMATOCRIT 34.5 % (42.0-54.0); HEMOGLOBIN 11.8 g/dL (13.5-18.0); LYMPHOCYTES # (AUTO) 0.9 X10^3/uL (1.3-2.9); LYMPHOCYTES % (AUTO) 9.5 % (21.0-51.0); MEAN CORPUSCULAR HEMOGLOBIN 29.5 pg (27.0-34.0); MEAN CORPUSCULAR HGB CONC 34.1 g/dL (33.0-35.0); MEAN CORPUSCULAR VOLUME 86.5 fL (80.0-100.0); MEAN PLATELET VOLUME 7.8 fL (7.4-11.0); MONOCYTES # (AUTO) 1.5 x10^3/uL (0.3-0.8); MONOCYTES % (AUTO) 16.6 % (0.0-13.0); NEUTROPHILS # (AUTO) 6.6 x10^3/uL (2.2-4.8); NEUTROPHILS % (AUTO) 71.4 % (42.0-75.0); RED BLOOD COUNT 3.99 X10^6/uL (4.7-6.0); RED CELL DISTRIBUTION WIDTH 14.6 % (11.6-16.5); WHITE BLOOD COUNT 9.2 X10^3/uL (3.6-10.0)
[2022-12-13 04:56] LABS: ALANINE AMINOTRANSFERASE 87 Units/L (12-78); ALBUMIN 2.6 g/dL (3.4-5.0); ALKALINE PHOSPHATASE 64 Units/L (46-116); ASPARTATE AMINO TRANSFERASE 40 Units/L (15-37); BLOOD UREA NITROGEN 12 mg/dL (7-18); CALCIUM 8.6 mg/dL (8.5-10.1); CARBON DIOXIDE 27.5 mmol/L (21-32); CHLORIDE 100 mmol/L (98-107); COR CA(FOR HYPOALB) 9.7 mg/dL (8.5-10.1); COR NA(FOR HYPERGLY) 139 mmol/L (136-145); CREATININE 0.64 mg/dL (0.70-1.30); SODIUM 136 mmol/L (136-145); TOTAL PROTEIN 5.6 g/dL (6.4-8.2); eGFR NON BLACK RACES > 60 (>60)
[2022-12-13] MEDS: FORTAZ or TAZICEF VIAL INJ 1 G in NS 100 ML IV 100 ML IV SCH ×3 (05:23→21:34)
[2022-12-13 05:26] LABS: BAND NEUTROPHILS % 4 % (0-10); GIANT PLATELET RARE; METAMYELOCYTES % 3; PLATELET MORPHOLOGY COMMENT ABNORMAL (NORMAL)
[2022-12-13 05:27] LABS: TARGET CELLS SLIGHT
[2022-12-13] MEDS: NovoLIN R (or HumuLIN R) SUBCUT PRN ×2 (05:46→11:19)
--- NOTE | 2022-12-13 08:40 | DR.PROGNOT ---
HOSPITAL PROGRESS NOTE Progress Note for Day of: Progress Note Date: 12/13/22 Chief Complaint Chief Complaint: no complaint .. passing flatus , small BM . normal WBC and K . 100 cc drainage in KENISHA BP is slightly elevated . afebrile Past Medical Family Social History Past Med/Fam/Surg Hx: No changes since H&P Allergies: Allergies Penicillins Allergy (Unknown, Verified 12/07/22 12:16) prednisolone Allergy (Unknown, Verified 01/12/12 17:02) Sulfa (Sulfonamide Antibiotics) [SULFA] Allergy (Unknown, Verified 12/07/22 12:16) Review Of Systems ROS: No change since H&P Vital Signs Vital Signs: Temperature 99.1 F Pulse Rate [Bilateral Radial] 86 Pulse Rate 69 Respiratory Rate 20 Blood Pressure [Right Arm] 162/77 Blood Pressure [Left Arm] 131/69 Blood Pressure 165/68 O2 Sat by Pulse Oximetry 93 Physical Exam Oriented: Normal Eyes: Normal Ear: Normal Nose: Normal Throat: Normal Respiratory: Diminished Cardiovascular: Normal : Normal GI:Auscultation: Decreased GI:Palpation: Normal GI: Tenderness: Diffuse (abdominal tendeness and active BS ) Skin: Normal Musculoskeletal: Normal Psychiatric: Normal Mood Description: Calm and Appropriate Affect: Normal Speech Pattern: Clear and Appropriate Laboratory and Diagnostics Result Diagrams: 12/13/22 04:30 12/13/22 04:30 Labs: 12/08/22 10:58 Peritoneal Fluid Wound Gram Stain - Final 12/08/22 10:58 Peritoneal Fluid Wound Culture - Final Citrobacter Koseri Klebsiella Pneumoniae Proteus Mirabilis 12/08/22 17:16 Urine,[place] Urine Culture - Final Laboratory WBC 9.2 X10^3/uL (3.6-10.0) 12/13/22 04:30 RBC 3.99 X10^6/uL (4.7-6.0) L 12/13/22 04:30 Hgb 11.8 g/dL (13.5-18.0) L 12/13/22 04:30 Hct 34.5 % (42.0-54.0) L 12/13/22 04:30 MCV 86.5 fL (80.0-100.0) 12/13/22 04:30 MCH 29.5 pg (27.0-34.0) 12/13/22 04:30 MCHC 34.1 g/dL (33.0-35.0) 12/13/22 04:30 RDW 14.6 % (11.6-16.5) 12/13/22 04:30 Plt Count 244 X10^3/uL (150.0-450.0) 12/13/22 04:30 Plt Count Comment Adequate (ADEQUATE) 12/13/22 04:30 MPV 7.8 fL (7.4-11.0) 12/13/22 04:30 Neut % (Auto) 71.4 % (42.0-75.0) 12/13/22 04:30 Lymph % (Auto) 9.5 % (21.0-51.0) L 12/13/22 04:30 [place] % (Auto) 16.6 % (0.0-13.0) H 12/13/22 04:30 Eos % (Auto) 2.0 % (0.9-2.9) 12/13/22 04:30 Baso % (Auto) 0.5 % (0.2-1.0) 12/13/22 04:30 Neut # (Auto) 6.6 x10^3/uL (2.2-4.8) H 12/13/22 04:30 Lymph # (Auto) 0.9 X10^3/uL (1.3-2.9) L 12/13/22 04:30 [place] # (Auto) 1.5 x10^3/uL (0.3-0.8) H 12/13/22 04:30 Eos # (Auto) 0.2 x10^3/uL (0.0-0.2) 12/13/22 04:30 Baso # (Auto) 0.0 X10^3/uL (0.0-0.1) 12/13/22 04:30 Absolute Nucleated RBC 0.1 /100WBC 12/13/22 04:30 Total Counted 100 12/13/22 04:30 Neutrophils % (Manual) 68 % (39-76) 12/13/22 04:30 Band Neutrophils % 4 % (0-10) 12/13/22 04:30 Lymphocytes % (Manual) 9 % (13-43) L 12/13/22 04:30 Monocytes % (Manual) 14 % (4-9) H 12/13/22 04:30 Eosinophils % (Manual) 2 % (0-6) 12/13/22 04:30 Metamyelocytes % 3 12/13/22 04:30 Myelocytes % 2 12/09/22 04:20 Plt Clumps, EDTA Rare 12/12/22 04:15 Giant Platelets Rare 12/13/22 04:30 Plt Morphology Comment Abnormal (NORMAL) 12/13/22 04:30 RBC Morphology Abnormal (NORMAL) 12/13/22 04:30 Target Cells Slight A 12/13/22 04:30 Sodium 136 mmol/L (136-145) 12/13/22 04:30 Corrected Sodium 139 mmol/L (136-145) 12/13/22 04:30 Potassium 3.5 mmol/L (3.5-5.1) 12/13/22 04:30 Chloride 100 mmol/L (98-107) 12/13/22 04:30 Carbon Dioxide 27.5 mmol/L (21-32) 12/13/22 04:30 BUN 12 mg/dL (7-18) 12/13/22 04:30 Creatinine 0.64 mg/dL (0.70-1.30) L 12/13/22 04:30 Est GFR (MDRD) Af Amer > 60 (>60) 12/13/22 04:30 Est GFR (MDRD) Non-Af > 60 (>60) 12/13/22 04:30 Glucose 206 mg/dL (65-99) H 12/13/22 04:30 POC Glucose (mg/dL) 214 mg/dL (65-99) H 12/13/22 05:16 Calcium 8.6 mg/dL (8.5-10.1) 12/13/22 04:30 Corrected Calcium 9.7 mg/dL (8.5-10.1) 12/13/22 04:30 Magnesium 2.0 mg/dL (2.0-2.9) 12/13/22 04:30 Total Bilirubin 1.20 mg/dL (0.2-1.0) H 12/13/22 04:30 AST 40 Units/L (15-37) H 12/13/22 04:30 ALT 87 Units/L (12-78) H 12/13/22 04:30 Alkaline Phosphatase 64 Units/L (46-116) 12/13/22 04:30 Total Protein 5.6 g/dL (6.4-8.2) L 12/13/22 04:30 Albumin 2.6 g/dL (3.4-5.0) L 12/13/22 04:30 Globulin 3.0 g/dL (2.5-4.5) 12/13/22 04:30 Albumin/Globulin Ratio 0.9 Ratio (1.1-2.1) L 12/13/22 04:30 Amylase 48 Units/L (25-115) 12/07/22 11:35 Lipase 73 Units/L (73-393) 12/07/22 11:35 Specimen Type Clean catch urine 12/07/22 16:39 Urine Color Yellow (YELLOW) 12/07/22 16:39 Urine Appearance Slightly hazy (CLEAR) 12/07/22 16:39 Urine pH 7.0 (5.0 - 8.0) 12/07/22 16:39 Ur Specific [place] 1.005 (1.000-1.030) 12/07/22 16:39 Urine Protein 2+ (NEGATIVE) 12/07/22 16:39 Urine Glucose (UA) Negative (NEGATIVE) 12/07/22 16:39 Urine Ketones 1+ (NEGATIVE) 12/07/22 16:39 Urine Blood 1+ (NEGATIVE) 12/07/22 16:39 Urine Nitrite Negative (NEGATIVE) 12/07/22 16:39 Urine Bilirubin Negative (NEGATIVE) 12/07/22 16:39 Urine Urobilinogen Normal (NORMAL) 12/07/22 16:39 Ur Leukocyte Esterase 1+ (NEGATIVE) 12/07/22 16:39 Urine RBC 5-10 /HPF (0-3) A 12/07/22 16:39 Urine WBC 3-5 /HPF (0-5) 12/07/22 16:39 Ur Squamous Epith Cells Rare /HPF (NEGATIVE) 12/07/22 16:39 Urine Bacteria Trace /HPF (NEGATIVE) 12/07/22 16:39 Ur Culture Indicated? No/not indicated 12/07/22 16:39 Tissue Pathology To follow 12/08/22 12:45 Assessment and Plan 1: ruptured appendicitis with inflammatory mass RLQ with dense adhesions to the bladder and small bowel . s/p laparoscopy , laparotomy , RT colectomy . same PO care , OOB , DVT prophylaxis , IV ABT , to advance diet . d/c in am Problem Patient Problems: Patient Problems (Updated 12/08/22 @ 08:37 by Cooper Kimball) Acute appendicitis (Acute) K35.80 CHF (congestive heart failure) (Chronic) I50.9 Nausea & vomiting (Acute) R11.2 Abdominal pain (Acute) R10.9 Controlled type 2 diabetes mellitus without complication (Chronic) E11.9 Dyslipidemia (Chronic) E78.5 Gastroesophageal reflux disease (Chronic) K21.9 Pt states insurance will not pay for Omeprazole twice a day Hypertension (Chronic) I10 Long standing hx of HTN on multiple heart and b/p meds. Obstructive sleep apnea on CPAP (Chronic) G47.33, Z99.89
--- NOTE | 2022-12-13 08:54 | PCM.PROG ---
Progress Note - Progress Note for Day of Date of Exam: 12/10/22 - Subjective Subjective: IS CURRENTLY INPATIENT STATUS FOR TREATMENT OF RUPTURED APPENDIX, ABDOMINAL PAIN, NAUSEA AND VOMITING. HE IS DAY 2 POST OF DIAGNOSTIC LAPAROSCOPY, EXPLORATORY LAPAROTOMY, AND RIGHT COLECTOMY AND LYSIS OF DENSE ADHESIONS OF THE RIGHT LOWER QUADRANT. POST OPERATIVE DIAGNOSIS INCLUDE A LARGE INFLAMMATORY MASS IN THE RIGHT LOWER QUADRANT WITH ATTACHMENT TO THE BLADDER, TERMINAL ILEUM, AND CECUM WITH PURULENT DRAINAGE AND OLD ABSCESS. HE HAS A PMH OF CHF, DM II, DYSLIPIDEMIA, GERD, HTN, AND OBSTRUCTIVE SLEEP APNEA. HE HAS HAD A CHOLECYSTECTOMY, TONSILLECTOMY, AND HERNIA REPAIR WITH MESH INSERTION IN THE PAST. TODAY, HE IS ALERT AND ORIENTED, LYING IN BED ON MORNING ROUNDS. HE CON TINUES WITH COMPLAINTS OF DIFFUSE ABDOMINAL PAIN. HE ADMITS TO PASSING FLATTUS. NG TUBE WAS REMOVED THIS MORNING. ON EXAMINATION TODAY, HEART IS REGULAR IN RATE AND RHYTHM. BILATERAL LUNGS ARE CLEAR TO AUSCULTATION. ABDOMEN IS ROUND, SOFT, AND NOTED WITH DIFFUSE TENDERNESS. SURGICAL DRESSING IS DRY AND INTACT. A KENISHA DRAIN IS NOTED. A PAK CATHETER IS NOTED TO BEDSIDE DRAINAGE. NO UPPER OR LOWER EXTREMITY EDEMA NOTED. HIS VITALS THIS MORNING ARE: 98.7-69-3-94%RA-176/81. LABS WERE OBTAINED. WBC 9.1, RBC 3.74, HGB 11.3, HCT 32.3, PLT COUNT 144, SODIUM 131, POTASSIUM 3.4, CHLORIDE 97, BUN 11, CREATININE 0.64, GLUCOSE 222, CALCIUM 7.3, MAGNESIUM 1.9, AST 42, ALT 47, ALK PHOS 54, TOTAL PROTEIN 5.0, ALBUMIN 1.5. WOUND AND URINE CULTURES ARE PENDING. HE IS CURRENTLY RECEIVING D51/2 NORMAL SALINE AT 125ML/HR, FORTAZ 1G IV Q8H, ZOFRAN 4MG IV Q4H PRN, LOVENOX 40MG SC DAILY, DILAUDID 2MG IV Q4H PRN, NORCO 10/325MG PO Q6H PRN, OTBS ACHS, HUMULIN R SLIDING SCALE, PROTONIX 40MG IV DAILY, AND THE POTASSIUM AND MAGNESIUM PROTOCOLS. WE WILL CONTINUE WITH CURRENT PLAN OF CARE TODAY. STARTED PATIENT ON A CLEAR LIQUID DIET THIS MORNING. OTHERWISE, WE WILL FOLLOW-UP WITH AM LABS AND CONTINUE TO MONITOR. TIME SPENT ON CLINICAL ASSESSMENT, REVIWING LABS AND IMAGING, DECISION MAKING, AND DOCUMENTATION GREATER THAN 45 MINUTES. - Past Medical Family Social History Past Med/Fam/Surg Hx: No changes since H&P Allergies: Allergies Penicillins Allergy (Unknown, Verified 12/07/22 12:16) prednisolone Allergy (Unknown, Verified 01/12/12 17:02) Sulfa (Sulfonamide Antibiotics) [SULFA] Allergy (Unknown, Verified 12/07/22 12:16) - Review of Systems ROS: No change since H&P - Vital Signs and I&O's Vital Signs: Temperature 99.1 F Pulse Rate [Bilateral Radial] 86 Pulse Rate 69 Respiratory Rate 20 Blood Pressure [Right Arm] 162/77 Blood Pressure [Left Arm] 131/69 Blood Pressure 165/68 O2 Sat by Pulse Oximetry 93 Intake and Output: Intake & Output 12/10/22 12/11/22 12/12/22 12/13/22 11:59 11:59 11:59 11:59 Intake Total 2793 / 2793 3590 / 3590 2278 / 2278 3413 / 3413 Output Total 1305 / 1305 2240 / 2240 2715 / 2715 410 / 410 Balance 1488 / 1488 1350 / 1350 -437 / -437 3003 / 3003 - Physical Exam Oriented: Normal Eyes: Normal Ear: Normal Nose: Normal Throat: Normal Respiratory: Diminished Cardiovascular: Normal : Normal Auscultation: Bowel Sounds: Decreased Palpation: Normal Tenderness: Diffuse (abdominal tendeness and active BS) Skin: Normal Musculoskeletal: Normal Psychiatric: Normal Mood Description: Calm, Appropriate Affect: Normal Speech Pattern: Clear, Appropriate - Laboratory and Diagnostics Result Diagrams: 12/13/22 04:30 12/13/22 04:30 Labs: 12/08/22 10:58 Peritoneal Fluid Wound Gram Stain - Final 12/08/22 10:58 Peritoneal Fluid Wound Culture - Final Citrobacter Koseri Klebsiella Pneumoniae Proteus Mirabilis 12/08/22 17:16 Urine,[place] Urine Culture - Final Laboratory WBC 9.2 X10^3/uL (3.6-10.0) 12/13/22 04:30 RBC 3.99 X10^6/uL (4.7-6.0) L 12/13/22 04:30 Hgb 11.8 g/dL (13.5-18.0) L 12/13/22 04:30 Hct 34.5 % (42.0-54.0) L 12/13/22 04:30 MCV 86.5 fL (80.0-100.0) 12/13/22 04:30 MCH 29.5 pg (27.0-34.0) 12/13/22 04:30 MCHC 34.1 g/dL (33.0-35.0) 12/13/22 04:30 RDW 14.6 % (11.6-16.5) 12/13/22 04:30 Plt Count 244 X10^3/uL (150.0-450.0) 12/13/22 04:30 Plt Count Comment Adequate (ADEQUATE) 12/13/22 04:30 MPV 7.8 fL (7.4-11.0) 12/13/22 04:30 Neut % (Auto) 71.4 % (42.0-75.0) 12/13/22 04:30 Lymph % (Auto) 9.5 % (21.0-51.0) L 12/13/22 04:30 [place] % (Auto) 16.6 % (0.0-13.0) H 12/13/22 04:30 Eos % (Auto) 2.0 % (0.9-2.9) 12/13/22 04:30 Baso % (Auto) 0.5 % (0.2-1.0) 12/13/22 04:30 Neut # (Auto) 6.6 x10^3/uL (2.2-4.8) H 12/13/22 04:30 Lymph # (Auto) 0.9 X10^3/uL (1.3-2.9) L 12/13/22 04:30 [place] # (Auto) 1.5 x10^3/uL (0.3-0.8) H 12/13/22 04:30 Eos # (Auto) 0.2 x10^3/uL (0.0-0.2) 12/13/22 04:30 Baso # (Auto) 0.0 X10^3/uL (0.0-0.1) 12/13/22 04:30 Absolute Nucleated RBC 0.1 /100WBC 12/13/22 04:30 Total Counted 100 12/13/22 04:30 Neutrophils % (Manual) 68 % (39-76) 12/13/22 04:30 Band Neutrophils % 4 % (0-10) 12/13/22 04:30 Lymphocytes % (Manual) 9 % (13-43) L 12/13/22 04:30 Monocytes % (Manual) 14 % (4-9) H 12/13/22 04:30 Eosinophils % (Manual) 2 % (0-6) 12/13/22 04:30 Metamyelocytes % 3 12/13/22 04:30 Myelocytes % 2 12/09/22 04:20 Plt Clumps, EDTA Rare 12/12/22 04:15 Giant Platelets Rare 12/13/22 04:30 Plt Morphology Comment Abnormal (NORMAL) 12/13/22 04:30 RBC Morphology Abnormal (NORMAL) 12/13/22 04:30 Target Cells Slight A 12/13/22 04:30 Sodium 136 mmol/L (136-145) 12/13/22 04:30 Corrected Sodium 139 mmol/L (136-145) 12/13/22 04:30 Potassium 3.5 mmol/L (3.5-5.1) 12/13/22 04:30 Chloride 100 mmol/L (98-107) 12/13/22 04:30 Carbon Dioxide 27.5 mmol/L (21-32) 12/13/22 04:30 BUN 12 mg/dL (7-18) 12/13/22 04:30 Creatinine 0.64 mg/dL (0.70-1.30) L 12/13/22 04:30 Est GFR (MDRD) Af Amer > 60 (>60) 12/13/22 04:30 Est GFR (MDRD) Non-Af > 60 (>60) 12/13/22 04:30 Glucose 206 mg/dL (65-99) H 12/13/22 04:30 POC Glucose (mg/dL) 214 mg/dL (65-99) H 12/13/22 05:16 Calcium 8.6 mg/dL (8.5-10.1) 12/13/22 04:30 Corrected Calcium 9.7 mg/dL (8.5-10.1) 12/13/22 04:30 Magnesium 2.0 mg/dL (2.0-2.9) 12/13/22 04:30 Total Bilirubin 1.20 mg/dL (0.2-1.0) H 12/13/22 04:30 AST 40 Units/L (15-37) H 12/13/22 04:30 ALT 87 Units/L (12-78) H 12/13/22 04:30 Alkaline Phosphatase 64 Units/L (46-116) 12/13/22 04:30 Total Protein 5.6 g/dL (6.4-8.2) L 12/13/22 04:30 Albumin 2.6 g/dL (3.4-5.0) L 12/13/22 04:30 Globulin 3.0 g/dL (2.5-4.5) 12/13/22 04:30 Albumin/Globulin Ratio 0.9 Ratio (1.1-2.1) L 12/13/22 04:30 Amylase 48 Units/L (25-115) 12/07/22 11:35 Lipase 73 Units/L (73-393) 12/07/22 11:35 Specimen Type Clean catch urine 12/07/22 16:39 Urine Color Yellow (YELLOW) 12/07/22 16:39 Urine Appearance Slightly hazy (CLEAR) 12/07/22 16:39 Urine pH 7.0 (5.0 - 8.0) 12/07/22 16:39 Ur Specific [place] 1.005 (1.000-1.030) 12/07/22 16:39 Urine Protein 2+ (NEGATIVE) 12/07/22 16:39 Urine Glucose (UA) Negative (NEGATIVE) 12/07/22 16:39 Urine Ketones 1+ (NEGATIVE) 12/07/22 16:39 Urine Blood 1+ (NEGATIVE) 12/07/22 16:39 Urine Nitrite Negative (NEGATIVE) 12/07/22 16:39 Urine Bilirubin Negative (NEGATIVE) 12/07/22 16:39 Urine Urobilinogen Normal (NORMAL) 12/07/22 16:39 Ur Leukocyte Esterase 1+ (NEGATIVE) 12/07/22 16:39 Urine RBC 5-10 /HPF (0-3) A 12/07/22 16:39 Urine WBC 3-5 /HPF (0-5) 12/07/22 16:39 Ur Squamous Epith Cells Rare /HPF (NEGATIVE) 12/07/22 16:39 Urine Bacteria Trace /HPF (NEGATIVE) 12/07/22 16:39 Ur Culture Indicated? No/not indicated 12/07/22 16:39 Tissue Pathology To follow 12/08/22 12:45 - Plan (1) Acute appendicitis Status: Acute Qualifiers: Acute appendicitis type: unspecified acute appendicitis type Qualified Code(s): K35.80 - Unspecified acute appendicitis Plan: DAY 2 POST OP, CLEAR LIQUID DIET, D51/2 NORMAL SALINE AT 125ML/HR, FORTAZ 1G IV Q8H, ZOFRAN 4MG IV Q4H PRN, LOVENOX 40MG SC DAILY, DILAUDID 2MG IV Q4H PRN, NORCO 10/325MG PO Q6H PRN, OTBS ACHS, HUMULIN R SLIDING SCALE, PROTONIX 40MG IV DAILY, AND THE POTASSIUM AND MAGNESIUM PROTOCOLS. (2) Abdominal pain Status: Acute Qualifiers: Abdominal location: lower abdomen, unspecified Qualified Code(s): R10.30 - Lower abdominal pain, unspecified (3) Nausea & vomiting Status: Acute Qualifiers: Vomiting type: unspecified Qualified Code(s): R11.2 - Nausea with vomiting, unspecified (4) CHF (congestive heart failure) Status: Chronic Qualifiers: Heart failure type: unspecified Heart failure chronicity: chronic Qualified Code(s): I50.9 - Heart failure, unspecified (5) Controlled type 2 diabetes mellitus without complication Status: Chronic Qualifiers: Diabetes mellitus assisted insulin use: with assisted use Qualified Code(s): E11.9 - Type 2 diabetes mellitus without complications; 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
[2022-12-13] MEDS: ALBUMIN HUMAN 25%- 100 ML 100 ML IV SCH (09:36)
[2022-12-13] MEDS: LOVENOX INJ 40 MG SYR SC SCH (09:37)
[2022-12-13] MEDS: K-DUR TAB 20 MEQ PO PRN (09:37)
[2022-12-13] MEDS: ZEBETA TAB 5 MG PO SCH (09:37)
[2022-12-13] MEDS: PROTONIX INJ 40 MG VIAL IVP SCH (09:37)
[2022-12-13] MEDS: PATIENT'S HOME MEDICATION EACHEYE SCH ×2 (09:38→20:47)
[2022-12-13] MEDS: BENICAR TAB 40 MG PO SCH ×2 (09:38→20:35)
[2022-12-13] MEDS: PROCARDIA XL 24-hr PO SCH ×2 (09:38→20:35)
[2022-12-13] MEDS: HYDROCHLOROTHIAZIDE 25 MG TAB PO SCH ×2 (09:38→20:35)
[2022-12-13] MEDS: XALATAN EACHEYE SCH (20:40)
[2022-12-13] MEDS: SNACK - Diabetic Appropriate PO SCH (20:47)
[2022-12-14] MEDS: LR 1,000 ML IV 1,000 ML IV SCH ×2 (00:46→07:12)
[2022-12-14] MEDS: FORTAZ or TAZICEF VIAL INJ 1 G in NS 100 ML IV 100 ML IV SCH (05:18)
[2022-12-14 06:16] LABS: BASOPHILS # (AUTO) 0.1 X10^3/uL (0.0-0.1); BASOPHILS % (AUTO) 0.6 % (0.2-1.0); EOSINOPHILS # (AUTO) 0.2 x10^3/uL (0.0-0.2); EOSINOPHILS % (AUTO) 1.1 % (0.9-2.9); HEMATOCRIT 35.2 % (42.0-54.0); HEMOGLOBIN 11.9 g/dL (13.5-18.0); LYMPHOCYTES # (AUTO) 1.1 X10^3/uL (1.3-2.9); LYMPHOCYTES % (AUTO) 8.2 % (21.0-51.0); MEAN CORPUSCULAR HEMOGLOBIN 29.5 pg (27.0-34.0); MEAN CORPUSCULAR VOLUME 86.8 fL (80.0-100.0); MEAN PLATELET VOLUME 7.8 fL (7.4-11.0); MONOCYTES # (AUTO) 1.5 x10^3/uL (0.3-0.8); MONOCYTES % (AUTO) 11.2 % (0.0-13.0); NEUTROPHILS # (AUTO) 10.5 x10^3/uL (2.2-4.8); NEUTROPHILS % (AUTO) 78.9 % (42.0-75.0); RED BLOOD COUNT 4.05 X10^6/uL (4.7-6.0); RED CELL DISTRIBUTION WIDTH 14.6 % (11.6-16.5); WHITE BLOOD COUNT 13.4 X10^3/uL (3.6-10.0)
[2022-12-14 06:24] LABS: ALANINE AMINOTRANSFERASE 99 Units/L (12-78); ALKALINE PHOSPHATASE 78 Units/L (46-116); ASPARTATE AMINO TRANSFERASE 38 Units/L (15-37); BLOOD UREA NITROGEN 15 mg/dL (7-18); CALCIUM 8.7 mg/dL (8.5-10.1); CARBON DIOXIDE 27.3 mmol/L (21-32); CHLORIDE 97 mmol/L (98-107); COR CA(FOR HYPOALB) 9.5 mg/dL (8.5-10.1); COR NA(FOR HYPERGLY) 139 mmol/L (136-145); CREATININE 0.68 mg/dL (0.70-1.30); SODIUM 136 mmol/L (136-145); TOTAL PROTEIN 6.1 g/dL (6.4-8.2); eGFR NON BLACK RACES > 60 (>60)
[2022-12-14 06:51] LABS: BAND NEUTROPHILS % 2 % (0-10)
[2022-12-14 06:52] LABS: PLATELET MORPHOLOGY COMMENT NORMAL (NORMAL)
[2022-12-14] MEDS: K-DUR TAB 20 MEQ PO PRN (06:56)
--- NOTE | 2022-12-14 08:02 | DR.PROGNOT ---
HOSPITAL PROGRESS NOTE Progress Note for Day of: Progress Note Date: 12/14/22 Chief Complaint Chief Complaint: no complaint .. passing flatus and had normal BM . no more hematuria 100 cc drainage in KENISHA BP is slightly elevated . WBC 13.4 afebrile . KENISHA was removed . no infection, no drainage Past Medical Family Social History Past Med/Fam/Surg Hx: No changes since H&P Allergies: Allergies Penicillins Allergy (Unknown, Verified 12/07/22 12:16) prednisolone Allergy (Unknown, Verified 01/12/12 17:02) Sulfa (Sulfonamide Antibiotics) [SULFA] Allergy (Unknown, Verified 12/07/22 12:16) Review Of Systems ROS: No change since H&P Vital Signs Vital Signs: Temperature 98.2 F Pulse Rate [Bilateral Radial] 90 Pulse Rate 69 Respiratory Rate 20 Blood Pressure [Right Arm] 163/70 Blood Pressure [Left Arm] 131/69 Blood Pressure 165/68 O2 Sat by Pulse Oximetry 96 Physical Exam Oriented: Normal Eyes: Normal Ear: Normal Nose: Normal Throat: Normal Respiratory: Diminished Cardiovascular: Normal : Normal GI:Auscultation: Decreased GI:Palpation: Normal GI: Tenderness: Other (soft, flat , non tender abdomen ) Skin: Normal Musculoskeletal: Normal Psychiatric: Normal Mood Description: Calm and Appropriate Affect: Normal Speech Pattern: Clear and Appropriate Laboratory and Diagnostics Result Diagrams: 12/14/22 05:08 12/14/22 05:08 Labs: 12/08/22 10:58 Peritoneal Fluid Wound Gram Stain - Final 12/08/22 10:58 Peritoneal Fluid Wound Culture - Final Citrobacter Koseri Klebsiella Pneumoniae Proteus Mirabilis 12/08/22 17:16 Urine,[place] Urine Culture - Final Laboratory WBC 13.4 X10^3/uL (3.6-10.0) H 12/14/22 05:08 RBC 4.05 X10^6/uL (4.7-6.0) L 12/14/22 05:08 Hgb 11.9 g/dL (13.5-18.0) L 12/14/22 05:08 Hct 35.2 % (42.0-54.0) L 12/14/22 05:08 MCV 86.8 fL (80.0-100.0) 12/14/22 05:08 MCH 29.5 pg (27.0-34.0) 12/14/22 05:08 MCHC 34.0 g/dL (33.0-35.0) 12/14/22 05:08 RDW 14.6 % (11.6-16.5) 12/14/22 05:08 Plt Count 362 X10^3/uL (150.0-450.0) 12/14/22 05:08 Plt Count Comment Adequate (ADEQUATE) 12/14/22 05:08 MPV 7.8 fL (7.4-11.0) 12/14/22 05:08 Neut % (Auto) 78.9 % (42.0-75.0) H 12/14/22 05:08 Lymph % (Auto) 8.2 % (21.0-51.0) L 12/14/22 05:08 [place] % (Auto) 11.2 % (0.0-13.0) 12/14/22 05:08 Eos % (Auto) 1.1 % (0.9-2.9) 12/14/22 05:08 Baso % (Auto) 0.6 % (0.2-1.0) 12/14/22 05:08 Neut # (Auto) 10.5 x10^3/uL (2.2-4.8) H 12/14/22 05:08 Lymph # (Auto) 1.1 X10^3/uL (1.3-2.9) L 12/14/22 05:08 [place] # (Auto) 1.5 x10^3/uL (0.3-0.8) H 12/14/22 05:08 Eos # (Auto) 0.2 x10^3/uL (0.0-0.2) 12/14/22 05:08 Baso # (Auto) 0.1 X10^3/uL (0.0-0.1) 12/14/22 05:08 Absolute Nucleated RBC 0.1 /100WBC 12/14/22 05:08 Total Counted 100 12/14/22 05:08 Neutrophils % (Manual) 73 % (39-76) 12/14/22 05:08 Band Neutrophils % 2 % (0-10) 12/14/22 05:08 Lymphocytes % (Manual) 18 % (13-43) 12/14/22 05:08 Monocytes % (Manual) 7 % (4-9) 12/14/22 05:08 Eosinophils % (Manual) 2 % (0-6) 12/13/22 04:30 Metamyelocytes % 3 12/13/22 04:30 Myelocytes % 2 12/09/22 04:20 Plt Clumps, EDTA Rare 12/12/22 04:15 Giant Platelets Rare 12/13/22 04:30 Plt Morphology Comment Normal (NORMAL) 12/14/22 05:08 RBC Morphology Normal (NORMAL) 12/14/22 05:08 Target Cells Slight A 12/13/22 04:30 Sodium 136 mmol/L (136-145) 12/14/22 05:08 Corrected Sodium 139 mmol/L (136-145) 12/14/22 05:08 Potassium 3.3 mmol/L (3.5-5.1) L 12/14/22 05:08 Chloride 97 mmol/L (98-107) L 12/14/22 05:08 Carbon Dioxide 27.3 mmol/L (21-32) 12/14/22 05:08 BUN 15 mg/dL (7-18) 12/14/22 05:08 Creatinine 0.68 mg/dL (0.70-1.30) L 12/14/22 05:08 Est GFR (MDRD) Af Amer > 60 (>60) 12/14/22 05:08 Est GFR (MDRD) Non-Af > 60 (>60) 12/14/22 05:08 Glucose 207 mg/dL (65-99) H 12/14/22 05:08 POC Glucose (mg/dL) 196 mg/dL (65-99) H 12/14/22 05:06 Calcium 8.7 mg/dL (8.5-10.1) 12/14/22 05:08 Corrected Calcium 9.5 mg/dL (8.5-10.1) 12/14/22 05:08 Magnesium 2.0 mg/dL (2.0-2.9) 12/13/22 04:30 Total Bilirubin 2.00 mg/dL (0.2-1.0) H 12/14/22 05:08 AST 38 Units/L (15-37) H 12/14/22 05:08 ALT 99 Units/L (12-78) H 12/14/22 05:08 Alkaline Phosphatase 78 Units/L (46-116) 12/14/22 05:08 Total Protein 6.1 g/dL (6.4-8.2) L 12/14/22 05:08 Albumin 3.0 g/dL (3.4-5.0) L 12/14/22 05:08 Globulin 3.1 g/dL (2.5-4.5) 12/14/22 05:08 Albumin/Globulin Ratio 1.0 Ratio (1.1-2.1) L 12/14/22 05:08 Amylase 48 Units/L (25-115) 12/07/22 11:35 Lipase 73 Units/L (73-393) 12/07/22 11:35 Specimen Type Clean catch urine 12/07/22 16:39 Urine Color Yellow (YELLOW) 12/07/22 16:39 Urine Appearance Slightly hazy (CLEAR) 12/07/22 16:39 Urine pH 7.0 (5.0 - 8.0) 12/07/22 16:39 Ur Specific [place] 1.005 (1.000-1.030) 12/07/22 16:39 Urine Protein 2+ (NEGATIVE) 12/07/22 16:39 Urine Glucose (UA) Negative (NEGATIVE) 12/07/22 16:39 Urine Ketones 1+ (NEGATIVE) 12/07/22 16:39 Urine Blood 1+ (NEGATIVE) 12/07/22 16:39 Urine Nitrite Negative (NEGATIVE) 12/07/22 16:39 Urine Bilirubin Negative (NEGATIVE) 12/07/22 16:39 Urine Urobilinogen Normal (NORMAL) 12/07/22 16:39 Ur Leukocyte Esterase 1+ (NEGATIVE) 12/07/22 16:39 Urine RBC 5-10 /HPF (0-3) A 12/07/22 16:39 Urine WBC 3-5 /HPF (0-5) 12/07/22 16:39 Ur Squamous Epith Cells Rare /HPF (NEGATIVE) 12/07/22 16:39 Urine Bacteria Trace /HPF (NEGATIVE) 12/07/22 16:39 Ur Culture Indicated? No/not indicated 12/07/22 16:39 Tissue Pathology To follow 12/08/22 12:45 Assessment and Plan 1: ruptured appendicitis with inflammatory mass RLQ with dense adhesions to the bladder and small bowel . s/p laparoscopy , laparotomy , RT colectomy . Pt could be d/c and will follow in one week . small meals , may leave the incision open to air or light dressing Problem Patient Problems: Patient Problems (Updated 12/08/22 @ 08:37 by Cooper Kimball) Acute appendicitis (Acute) K35.80 CHF (congestive heart failure) (Chronic) I50.9 Nausea & vomiting (Acute) R11.2 Abdominal pain (Acute) R10.9 Controlled type 2 diabetes mellitus without complication (Chronic) E11.9 Dyslipidemia (Chronic) E78.5 Gastroesophageal reflux disease (Chronic) K21.9 Pt states insurance will not pay for Omeprazole twice a day Hypertension (Chronic) I10 Long standing hx of HTN on multiple heart and b/p meds. Obstructive sleep apnea on CPAP (Chronic) G47.33, Z99.89
--- NOTE | 2022-12-14 08:32 | RAD ---
HISTORYPartial small bowel [id number] February 2023FINDINGSSurgical rogerio are present overlying the right lower abdomen and left lower quadrant. Surgical clips are present in the right upper quadrant. Multiple dilated loops of small bowel are present in the left upper quadrant slightly less prominent than on the prior examination but still suggestive either of partial small bowel obstruction or ileus. No abnormal masses or abnormal calcifications are identified. Regional skeleton is intact.IMPRESSIONNo significant change from the prior examinationElectronically signed by: MONALISA MORALES (Dec 14, 2022 08:31:39)
[2022-12-14 08:33] VITALS: BP 145/79
[2022-12-14] MEDS: PROTONIX INJ 40 MG VIAL IVP SCH (09:53)
[2022-12-14] MEDS: ZEBETA TAB 5 MG PO SCH (09:53)
[2022-12-14] MEDS: ALBUMIN HUMAN 25%- 100 ML 100 ML IV SCH (09:54)
[2022-12-14] MEDS: HYDROCHLOROTHIAZIDE 25 MG TAB PO SCH (09:55)
[2022-12-14] MEDS: BENICAR TAB 40 MG PO SCH (09:55)
[2022-12-14] MEDS: PROCARDIA XL 24-hr PO SCH (09:55)
[2022-12-14] MEDS: PATIENT'S HOME MEDICATION EACHEYE SCH (09:56)
== END 2022-12-14 11:55 | disposition home or self-care (01) | DRG 330 ==
LOC: MED/SURG → ICU 12-08 15:38 → MED/SURG 12-12 17:50
PROVIDERS: ADMIT Internal Medicine; ATTEND Internal Medicine
PROC: APPYLAP (ICD-10-PCS; 2022-12-08 08:45)
DX: B96.1 Klebsiella pneumoniae [K. pneumoniae] as the cause of diseases classified elsewhere; B96.4 Proteus (mirabilis) (morganii) as the cause of diseases classified elsewhere; R10.30 Lower abdominal pain, unspecified; G47.33 Obstructive sleep apnea (adult) (pediatric); I11.0 Hypertensive heart disease with heart failure; R26.89 Other abnormalities of gait and mobility; B96.89 Other specified bacterial agents as the cause of diseases classified elsewhere; K21.9 Gastro-esophageal reflux disease without esophagitis; E11.65 Type 2 diabetes mellitus with hyperglycemia; E78.2 Mixed hyperlipidemia; Z95.0 Presence of cardiac pacemaker; Z79.4 Long term (current) use of insulin; K35.32 Acute appendicitis with perforation, localized peritonitis, and gangrene, without abscess; I50.9 Heart failure, unspecified; R11.2 Nausea with vomiting, unspecified; K56.51 Intestinal adhesions [bands], with partial obstruction; F41.8 Other specified anxiety disorders

== ENCOUNTER 2024-02-27 16:17 | Inpatient (IN) ==
[2024-02-27] MEDS: NS 1,000 ML IV 1,000 ML IV ONE (17:51)
[2024-02-27] MEDS: ZOFRAN INJ 4 MG VIAL IVP ONE (17:51)
[2024-02-27] MEDS: DEMEROL INJ IVP ONE ×2 (17:52→18:37)
--- NOTE | 2024-02-27 17:53 | DR.ABDMALE ---
HPI Time seen Time Seen by Provider: 02/27/24 17:53 PCP Primary Care Physician: ANA Acuna Complaint Chief Complaint:: Pt states that around 1300 today he had a sudden onset of constant generalized abdominal pain described as "fullness or tightness." Pt c/o nausea but denies vomiting. Pt denies any fever or diarrhea. Pt had normal BM this morning. Self Treatment fo Chief Complaint: Pt took Tums x 6 with no improvement of symptoms COVID-19 Coronavirus risk:travel/contact w/high risk person: No Has patient experienced Coronavirus symptoms: No Mode of arrival Mode of Arrival: Ambulatory Timing Onset of Chief Complaint: 02/27/24 PMH PMH Past Medical History: Yes Past Medical History: Anxiety, Coronary Artery Disease, Depression, Diabetes and GERD Past Medical History Comment: Glaucoma, Bradycardia Past Surgical History: Yes Surgical History: Cholecystectomy and Tonsillectomy Past Surgical History Comment: Pacemaker, Hernia Repair, Gastric resection Family History History of Family Medical Conditions: Yes Family Medical History: Diabetes Mellitus, Cancer, [place], Coronary Artery Disease and Hypertension Social History Does patient currently use any type of tobacco product: No Have you used tobacco products in the last 12 months: No Type of Tobacco Use: None Does any household member use tobacco: No Alcohol Use: None Do you use any recreational Drugs:: No Lives With: Spouse Lives Where: Home Travel Risk Coronavirus risk:travel/contact w/high risk person: No Has patient experienced Coronavirus symptoms: No Infectious screening In the last 2 months have you had wt loss of >10#?: NO Have you had fever, night sweats or hemotysis?: No Have you traveled outside the country in the last 6 months?: No Isolation: Standard PE Vital Signs Vital Signs: Temp Pulse Resp BP Pulse Ox O2 Del Method 02/27/24 18:37 18 02/27/24 17:52 20 02/27/24 16:24 97.8 F 75 20 164/78 95 Room Air ROR Labs Reviewed 02/27/24 17:49 02/27/24 18:35 Laboratory: WBC 9.8 X10^3/uL (3.6-10.0) 02/27/24 17:49 RBC 5.30 X10^6/uL (4.7-6.0) 02/27/24 17:49 Hgb 15.8 g/dL (13.5-18.0) 02/27/24 17:49 Hct 47.0 % (42.0-54.0) 02/27/24 17:49 MCV 88.6 fL (80.0-100.0) 02/27/24 17:49 MCH 29.8 pg (27.0-34.0) 02/27/24 17:49 MCHC 33.6 g/dL (33.0-35.0) 02/27/24 17:49 RDW 14.7 % (11.6-16.5) 02/27/24 17:49 Plt Count 205 X10^3/uL (150.0-450.0) 02/27/24 17:49 MPV 8.5 fL (7.4-11.0) 02/27/24 17:49 Neut % (Auto) 69.5 % (42.0-75.0) 02/27/24 17:49 Lymph % (Auto) 16.4 % (21.0-51.0) L 02/27/24 17:49 [place] % (Auto) 12.3 % (0.0-13.0) 02/27/24 17:49 Eos % (Auto) 0.9 % (0.9-2.9) 02/27/24 17:49 Baso % (Auto) 0.9 % (0.2-1.0) 02/27/24 17:49 Neut # (Auto) 6.8 x10^3/uL (2.2-4.8) H 02/27/24 17:49 Lymph # (Auto) 1.6 X10^3/uL (1.3-2.9) 02/27/24 17:49 [place] # (Auto) 1.2 x10^3/uL (0.3-0.8) H 02/27/24 17:49 Eos # (Auto) 0.1 x10^3/uL (0.0-0.2) 02/27/24 17:49 Baso # (Auto) 0.1 X10^3/uL (0.0-0.1) 02/27/24 17:49 Absolute Nucleated RBC 0.1 /100WBC 02/27/24 17:49 Sodium 137 mmol/L (136-145) 02/27/24 18:35 Corrected Sodium 137 mmol/L (136-145) 02/27/24 18:35 Potassium 3.6 mmol/L (3.5-5.1) 02/27/24 18:35 Chloride 100 mmol/L (98-107) 02/27/24 18:35 Carbon Dioxide 27.6 mmol/L (21-32) 02/27/24 18:35 BUN 15 mg/dL (7-18) 02/27/24 18:35 Creatinine 0.95 mg/dL (0.70-1.30) 02/27/24 18:35 Est GFR (MDRD) Af Amer > 60 (>60) 02/27/24 18:35 Est GFR (MDRD) Non-Af > 60 (>60) 02/27/24 18:35 Glucose 111 mg/dL (65-99) H 02/27/24 18:35 Calcium 9.5 mg/dL (8.5-10.1) 02/27/24 18:35 Corrected Calcium TNP 02/27/24 18:35 Total Bilirubin 0.40 mg/dL (0.2-1.0) 02/27/24 18:35 AST 42 Units/L (15-37) H 02/27/24 18:35 ALT 51 Units/L (12-78) 02/27/24 18:35 Alkaline Phosphatase 74 Units/L (46-116) 02/27/24 18:35 Total Protein 7.4 g/dL (6.4-8.2) 02/27/24 18:35 Albumin 3.9 g/dL (3.4-5.0) 02/27/24 18:35 Globulin 3.5 g/dL (2.5-4.5) 02/27/24 18:35 Albumin/Globulin Ratio 1.1 Ratio (1.1-2.1) 02/27/24 18:35 Amylase 76 Units/L (25-115) 02/27/24 18:35 Lipase 38 Units/L (16-77) 02/27/24 18:35 Opioid Opioid Risk Tool Age ([place] box if 16-45): No History of Preadolescent Sexual Abuse: No Total: 0 Total Score Risk Category: Low Risk Copyright: Rehan SHEIKH predicting aberrant behaviors Discharge Plan Discharge Plan Patient Disposition: 01 HOME, SELF-CARE Condition: Stable Prescriptions: No Action ropinirole 1 mg tablet 1 - 2 mg PO QPM sucralfate 1 gram tablet 0.5 g PO QID omeprazole 40 mg capsule,delayed release(DR/EC) 40 mg PO QDAY tramadol 50 mg tablet 50 mg PO QDAY temazepam 30 mg capsule 30 mg PO QPM folic acid 1 mg tablet 1 mg PO QDAY clonidine 0.3 mg/24 hr patch weekly 1 patch QWEEK nifedipine 60 mg tablet extended release 60 mg PO BID metoclopramide HCl 10 mg tablet 10 mg PO QPM doxazosin 2 mg tablet 2 mg PO QDAY olmesartan-hydrochlorothiazide 40-25 mg tablet 1 tab PO QDAY bupropion HCl 300 mg tablet extended release 24 hr 300 mg PO QDAY insulin glargine [Lantus Solostar U-100 Insulin] 100 unit/mL (3 mL) insulin pe n 30 unit SUBCUT BID nebivolol 20 mg tablet 20 mg PO QDAY simvastatin 20 mg Tablet 20 mg PO HS Health Concerns: Post Hospitalization: new medications and changes needed to prevent readmission or further decline. Pt educated and given instructions on all concerns. Plan of Treatment: Continue with present treatment and follow up plan. Pt is to keep follow up appointment as instructed and take medications as ordered. Orders to Discharge Patient Discharge Orders: Transfer (Routine); Ordered 02/27/24 Ordered By: CRISTÓBAL ROBLERO Follow ups/Referrals Follow ups/Referrals: TIAGO BLISS [Primary Care Provider] - 3 days Instructions Stand Alone Forms: Post Hospital Follow Up Care
[2024-02-27 18:18] LABS: BASOPHILS # (AUTO) 0.1 X10^3/uL (0.0-0.1); BASOPHILS % (AUTO) 0.9 % (0.2-1.0); EOSINOPHILS # (AUTO) 0.1 x10^3/uL (0.0-0.2); EOSINOPHILS % (AUTO) 0.9 % (0.9-2.9); HEMOGLOBIN 15.8 g/dL (13.5-18.0); LYMPHOCYTES # (AUTO) 1.6 X10^3/uL (1.3-2.9); LYMPHOCYTES % (AUTO) 16.4 % (21.0-51.0); MEAN CORPUSCULAR HEMOGLOBIN 29.8 pg (27.0-34.0); MEAN CORPUSCULAR HGB CONC 33.6 g/dL (33.0-35.0); MEAN CORPUSCULAR VOLUME 88.6 fL (80.0-100.0); MEAN PLATELET VOLUME 8.5 fL (7.4-11.0); MONOCYTES # (AUTO) 1.2 x10^3/uL (0.3-0.8); MONOCYTES % (AUTO) 12.3 % (0.0-13.0); NEUTROPHILS # (AUTO) 6.8 x10^3/uL (2.2-4.8); NEUTROPHILS % (AUTO) 69.5 % (42.0-75.0); PLATELET COUNT 205 X10^3/uL (150.0-450.0); RED CELL DISTRIBUTION WIDTH 14.7 % (11.6-16.5); WHITE BLOOD COUNT 9.8 X10^3/uL (3.6-10.0)
--- NOTE | 2024-02-27 18:59 | CT ---
EXAM:ABDOMEN/PELVIS W/O CONHISTORY:sudden onset of constant generalized abdominal pain described as "fullness or tightness." Pt c/o nausea but denies vomiting.;COMPARISON:December 07, 2022TECHNIQUE:Non-contrasted axial CT images of the abdomen and pelvis were obtained and reformatted into coronal and sagittal planes for further evaluation.Radiation dose: 229.03 mGy-cm total DLPFINDINGS:Lung bases are clear.Stomach appears normal.Solid visceral organs of the upper abdomen are unremarkable.Status post cholecystectomy.No intra or extrahepatic biliary dilatation.Unremarkable appearance of the kidneys.No hydronephrosis, hydroureter or ureteral calculus.Unremarkable appearance of the urinary bladder.Single loop of small bowel contained within a supraumbilical anterior midline abdominal wall hernia which does not result in bowel obstruction or acute inflammation.Multiple moderately distended fluid-filled loops of small bowel with no small bowel wall thickening or pneumatosis intestinalis. Edema in the small bowel mesentery in the right paracentral mid abdomen.Transition point to small bowel decompression occurs in the right mid abdomen as seen from axial image 45 to axial image 60. Swirling in the small bowel mesentery visualized on the coronal sequence from image 15 to image 25.Nonspecific enlargement of the prostate gland.No evidence of acute appendicitis.No pneumoperitoneum.No significant fluid collection.No adenopathy.No acute osseous abnormality.IMPRESSION:1. Findings are consistent with a moderate grade mechanical small bowel obstruction which occurs in the right mid abdomen. Swirling within the mesentery visualized on coronal images 15-25. Therefore, a volvulus should be considered as the cause of the mechanical small bowel obstruction. General surgery consultation is recommended.2. Single loop of small bowel contained within a supraumbilical anterior midline abdominal wall hernia which does not result in bowel obstruction or acute inflammation.3. Nonspecific enlargement of the prostate gland.THIS IS AN ELECTRONICALLY VERIFIED FINAL REPORT02/27/2024 6:50 PM - Electronically signed by Jerald Duenas MD
[2024-02-27 19:04] LABS: ALANINE AMINOTRANSFERASE 51 Units/L (12-78); ALBUMIN 3.9 g/dL (3.4-5.0); ALKALINE PHOSPHATASE 74 Units/L (46-116); ASPARTATE AMINO TRANSFERASE 42 Units/L (15-37); BLOOD UREA NITROGEN 15 mg/dL (7-18); CALCIUM 9.5 mg/dL (8.5-10.1); CARBON DIOXIDE 27.6 mmol/L (21-32); CHLORIDE 100 mmol/L (98-107); COR NA(FOR HYPERGLY) 137 mmol/L (136-145); CREATININE 0.95 mg/dL (0.70-1.30); GLUCOSE 111 mg/dL (65-99); LIPASE 38 Units/L (16-77); POTASSIUM 3.6 mmol/L (3.5-5.1); SODIUM 137 mmol/L (136-145); TOTAL PROTEIN 7.4 g/dL (6.4-8.2); eGFR NON BLACK RACES > 60 (>60)
[2024-02-27] MEDS: NS 1,000 ML IV 1,000 ML IV SCH (19:43)
[2024-02-27] MEDS: PROTONIX INJ 40 MG VIAL IVP ONE (19:43)
[2024-02-27 22:18] LABS: BILIRUBIN,URINE NEGATIVE (NEGATIVE); BLOOD/HEMOGLOBIN,URINE 1+ (NEGATIVE); GLUCOSE, URINE NEGATIVE (NEGATIVE); KETONES,URINE 3+ (NEGATIVE); LEUKOCYTE ESTERASE ,URINE 1+ (NEGATIVE); NITRITES,URINE NEGATIVE (NEGATIVE); PROTEIN,URINE 2+ (NEGATIVE); UROBILINOGEN,URINE NORMAL (NORMAL)
[2024-02-27 22:19] LABS: APPEARANCE,URINE SLIGHTLY HAZY (CLEAR); COLOR,URINE YELLOW (YELLOW)
[2024-02-27 22:24] LABS: BACTERIA,URINE TRACE /HPF (NEGATIVE); SQUAMOUS EPITHELIAL CELL,UR FEW /HPF (NEGATIVE)
[2024-02-27 22:25] LABS: HYALINE CASTS, URINE FEW /LPF (NEGATIVE)
[2024-02-27] MEDS: ZOFRAN INJ 4 MG VIAL IVP PRN (23:15)
--- NOTE | 2024-02-27 23:15 | RAD ---
EXAM: KUB HISTORY: NG TUBE PLACEMENT; COMPARISON: No relevant prior studies available. TECHNIQUE: AP supine projection, 1 image FINDINGS: Esophagogastric tube tip is in the body of the stomach. Small bowel loops seen on the comparison CT are not well visualized secondary to the lack of gas with in the dilated small bowel loops. No gross free air. IMPRESSION: Esophagogastric tube tip is in the body of the stomach. THIS IS AN ELECTRONICALLY VERIFIED FINAL REPORT 02/27/2024 11:11 PM - Electronically signed by Jerald Duenas MD
[2024-02-27] MEDS: DILAUDID INJ IVP PRN (23:16)
[2024-02-28 05:08] LABS: BASOPHILS # (AUTO) 0.2 X10^3/uL (0.0-0.1); BASOPHILS % (AUTO) 2.1 % (0.2-1.0); EOSINOPHILS % (AUTO) 0.3 % (0.9-2.9); HEMATOCRIT 43.5 % (42.0-54.0); HEMOGLOBIN 14.6 g/dL (13.5-18.0); LYMPHOCYTES # (AUTO) 0.6 X10^3/uL (1.3-2.9); LYMPHOCYTES % (AUTO) 6.6 % (21.0-51.0); MEAN CORPUSCULAR HEMOGLOBIN 29.8 pg (27.0-34.0); MEAN CORPUSCULAR HGB CONC 33.7 g/dL (33.0-35.0); MEAN CORPUSCULAR VOLUME 88.4 fL (80.0-100.0); MEAN PLATELET VOLUME 8.1 fL (7.4-11.0); MONOCYTES # (AUTO) 0.8 x10^3/uL (0.3-0.8); MONOCYTES % (AUTO) 9.2 % (0.0-13.0); NEUTROPHILS # (AUTO) 6.9 x10^3/uL (2.2-4.8); NEUTROPHILS % (AUTO) 81.8 % (42.0-75.0); PLATELET COUNT 197 X10^3/uL (150.0-450.0); RED BLOOD COUNT 4.92 X10^6/uL (4.7-6.0); RED CELL DISTRIBUTION WIDTH 14.8 % (11.6-16.5); WHITE BLOOD COUNT 8.4 X10^3/uL (3.6-10.0)
[2024-02-28 05:19] LABS: ALANINE AMINOTRANSFERASE 46 Units/L (12-78); ALBUMIN 3.4 g/dL (3.4-5.0); ALKALINE PHOSPHATASE 69 Units/L (46-116); ASPARTATE AMINO TRANSFERASE 32 Units/L (15-37); BLOOD UREA NITROGEN 18 mg/dL (7-18); CALCIUM 8.6 mg/dL (8.5-10.1); CARBON DIOXIDE 27.2 mmol/L (21-32); CHLORIDE 100 mmol/L (98-107); CREATININE 0.72 mg/dL (0.70-1.30); GLUCOSE 108 mg/dL (65-99); POTASSIUM 3.6 mmol/L (3.5-5.1); SODIUM 139 mmol/L (136-145); TOTAL PROTEIN 6.8 g/dL (6.4-8.2); eGFR NON BLACK RACES > 60 (>60)
[2024-02-28] MEDS ORDERED: CONSULT PHARMACY - POTASSIUM & MAGNESIUM XX SCH ×2 (06:00→07:00)
[2024-02-28] MEDS: NS 1,000 ML IV 1,000 ML ONE (06:51)
[2024-02-28] MEDS: ZOFRAN INJ 4 MG VIAL ONE (06:52)
[2024-02-28] MEDS: DEMEROL INJ ONE (06:52)
[2024-02-28] MEDS: K-RIDER 10 MEQ/100 ML WATER 10 MEQ/100 ML BAG IV SCH (08:05)
[2024-02-28] MEDS: PROTONIX INJ 40 MG VIAL IVP SCH (08:05)
--- NOTE | 2024-02-28 08:22 | RAD ---
EXAM:KUBHISTORY:Small-bowel obstructionCOMPARISON:02/27/[address] abdomen pelvisFINDINGS:There is a nasogastric tube with its tip within the stomach. Abdominal gas pattern is nonspecific. No air distended small bowel loops are identified. However, on the recent CT abdomen pelvis the predominance of the dilated small bowel loops were fluid-filled and would not be visible on plain film. No abnormal masses or abnormal calcifications are identified. Regional skeleton is intact.IMPRESSION:Nonspecific bowel gas pattern. However it should be noted that the predominance of dilated small bowel loops on the recent CT were fluid-filled and would not be visible on plain film.THIS IS AN ELECTRONICALLY VERIFIED FINAL REPORT02/28/2024 8:16 AM - Electronically signed by Gurjit Miller MD
--- NOTE | 2024-02-28 08:42 | DR.PROGNOT ---
HOSPITAL PROGRESS NOTE Progress Note for Day of: Progress Note Date: 02/28/24 Chief Complaint Chief Complaint: Less abdominal pain today, no nausea or vomiting. NG tube is draining thick yellowish material. Repeated KUB showed improving small bowel obstruction. WBC is normal but has shift to the left. Normal electrolytes, normal BUN/creatinine. Afebrile. Past Medical Family Social History Allergies: Allergies Penicillins Allergy (Unknown, Verified 02/27/24 16:36) Sulfa (Sulfonamide Antibiotics) [SULFA] Allergy (Unknown, Verified 02/27/24 16:36) Vital Signs Vital Signs: Vital Signs Temperature 98.5 F Pulse Rate 75 Pulse Rate 76 Pulse Rate 76 Pulse Rate 81 Pulse Rate 83 Pulse Rate 87 Pulse Rate 87 Pulse Rate 81 Pulse Rate 81 Respiratory Rate 28 Respiratory Rate 26 Respiratory Rate 18 Respiratory Rate 20 Respiratory Rate 21 Respiratory Rate 18 Respiratory Rate 16 Respiratory Rate 24 Respiratory Rate 22 Blood Pressure 148/81 Blood Pressure 182/79 Blood Pressure 159/74 Blood Pressure 161/77 Blood Pressure 147/72 Blood Pressure 150/72 Blood Pressure 145/67 Blood Pressure 163/77 Blood Pressure 151/75 O2 Sat by Pulse Oximetry 96 O2 Sat by Pulse Oximetry 94 O2 Sat by Pulse Oximetry 95 O2 Sat by Pulse Oximetry 95 O2 Sat by Pulse Oximetry 97 O2 Sat by Pulse Oximetry 94 O2 Sat by Pulse Oximetry 95 O2 Sat by Pulse Oximetry 96 O2 Sat by Pulse Oximetry 96 Physical Exam Oriented: Normal Eyes: Normal Respiratory: Normal Cardiovascular: Normal GI:Auscultation: Other (Hypoactive bowel sounds) GI:Palpation: Other (Full abdomen but soft, mild to moderate periumbilical te nderness, bowel sounds were hypoactive.) Speech Pattern: Clear and Appropriate Laboratory and Diagnostics 02/28/24 04:35 02/28/24 04:35 Labs: Laboratory WBC 8.4 X10^3/uL (3.6-10.0) 02/28/24 04:35 RBC 4.92 X10^6/uL (4.7-6.0) 02/28/24 04:35 Hgb 14.6 g/dL (13.5-18.0) 02/28/24 04:35 Hct 43.5 % (42.0-54.0) 02/28/24 04:35 MCV 88.4 fL (80.0-100.0) 02/28/24 04:35 MCH 29.8 pg (27.0-34.0) 02/28/24 04:35 MCHC 33.7 g/dL (33.0-35.0) 02/28/24 04:35 RDW 14.8 % (11.6-16.5) 02/28/24 04:35 Plt Count 197 X10^3/uL (150.0-450.0) 02/28/24 04:35 MPV 8.1 fL (7.4-11.0) 02/28/24 04:35 Neut % (Auto) 81.8 % (42.0-75.0) H 02/28/24 04:35 Lymph % (Auto) 6.6 % (21.0-51.0) L 02/28/24 04:35 [place] % (Auto) 9.2 % (0.0-13.0) 02/28/24 04:35 Eos % (Auto) 0.3 % (0.9-2.9) L 02/28/24 04:35 Baso % (Auto) 2.1 % (0.2-1.0) H 02/28/24 04:35 Neut # (Auto) 6.9 x10^3/uL (2.2-4.8) H 02/28/24 04:35 Lymph # (Auto) 0.6 X10^3/uL (1.3-2.9) L 02/28/24 04:35 [place] # (Auto) 0.8 x10^3/uL (0.3-0.8) 02/28/24 04:35 Eos # (Auto) 0.0 x10^3/uL (0.0-0.2) 02/28/24 04:35 Baso # (Auto) 0.2 X10^3/uL (0.0-0.1) H 02/28/24 04:35 Absolute Nucleated RBC 0.0 /100WBC 02/28/24 04:35 Sodium 139 mmol/L (136-145) 02/28/24 04:35 Corrected Sodium TNP 02/28/24 04:35 Potassium 3.6 mmol/L (3.5-5.1) 02/28/24 04:35 Chloride 100 mmol/L (98-107) 02/28/24 04:35 Carbon Dioxide 27.2 mmol/L (21-32) 02/28/24 04:35 BUN 18 mg/dL (7-18) 02/28/24 04:35 Creatinine 0.72 mg/dL (0.70-1.30) 02/28/24 04:35 Est GFR (MDRD) Af Amer > 60 (>60) 02/28/24 04:35 Est GFR (MDRD) Non-Af > 60 (>60) 02/28/24 04:35 Glucose 108 mg/dL (65-99) H 02/28/24 04:35 Calcium 8.6 mg/dL (8.5-10.1) 02/28/24 04:35 Corrected Calcium TNP 02/28/24 04:35 Magnesium 2.0 mg/dL (2.0-2.9) 02/28/24 04:35 Total Bilirubin 0.40 mg/dL (0.2-1.0) 02/28/24 04:35 AST 32 Units/L (15-37) 02/28/24 04:35 ALT 46 Units/L (12-78) 02/28/24 04:35 Alkaline Phosphatase 69 Units/L (46-116) 02/28/24 04:35 Total Protein 6.8 g/dL (6.4-8.2) 02/28/24 04:35 Albumin 3.4 g/dL (3.4-5.0) 02/28/24 04:35 Globulin 3.4 g/dL (2.5-4.5) 02/28/24 04:35 Albumin/Globulin Ratio 1.0 Ratio (1.1-2.1) L 02/28/24 04:35 Amylase 76 Units/L (25-115) 02/27/24 18:35 Lipase 38 Units/L (16-77) 02/27/24 18:35 Specimen Type Clean catch urine 02/27/24 22:05 Urine Color Yellow (YELLOW) 02/27/24 22:05 Urine Appearance Slightly hazy (CLEAR) 02/27/24 22:05 Urine pH 6.0 (5.0 - 8.0) 02/27/24 22:05 Ur Specific [place] 1.020 (1.000-1.030) 02/27/24 22:05 Urine Protein 2+ (NEGATIVE) 02/27/24 22:05 Urine Glucose (UA) Negative (NEGATIVE) 02/27/24 22:05 Urine Ketones 3+ (NEGATIVE) 02/27/24 22:05 Urine Blood 1+ (NEGATIVE) 02/27/24 22:05 Urine Nitrite Negative (NEGATIVE) 02/27/24 22:05 Urine Bilirubin Negative (NEGATIVE) 02/27/24 22:05 Urine Urobilinogen Normal (NORMAL) 02/27/24 22:05 Ur Leukocyte Esterase 1+ (NEGATIVE) 02/27/24 22:05 Urine RBC 3-5 /HPF (0-3) A 02/27/24 22:05 Urine WBC 0-2 /HPF (0-5) 02/27/24 22:05 Ur Squamous Epith Cells Few /HPF (NEGATIVE) 02/27/24 22:05 Amorphous Sediment 1+ /HPF (NEGATIVE) 02/27/24 22:05 Urine Bacteria Trace /HPF (NEGATIVE) 02/27/24 22:05 Hyaline Casts Few /LPF (NEGATIVE) 02/27/24 22:05 Urine Mucus Numerous /HPF (NEGATIVE) 02/27/24 22:05 Ur Culture Indicated? No/not indicated 02/27/24 22:05 Assessment and Plan 1: Partial small bowel obstruction, Will keep the NG tube and IV fluid. DVT prophylaxis. 2: Abdominal adhesions. Status post multiple abdominal surgeries. 3: Diabetes mellitus. 4: Coronary artery disease 5: Chronic gastroesophageal reflux disease
[2024-02-28] MEDS ORDERED: K-DUR TAB 20 MEQ PO SCH (09:00)
[2024-02-28] MEDS: LOVENOX INJ 40 MG SYR SC SCH (09:05)
[2024-02-28] MEDS: CATAPRES-TTS-3 TD SCH (12:53)
[2024-02-28 16:16] LABS: BILIRUBIN,URINE NEGATIVE (NEGATIVE); BLOOD/HEMOGLOBIN,URINE 3+ (NEGATIVE); GLUCOSE, URINE NEGATIVE (NEGATIVE); KETONES,URINE 3+ (NEGATIVE); LEUKOCYTE ESTERASE ,URINE NEGATIVE (NEGATIVE); NITRITES,URINE NEGATIVE (NEGATIVE); PROTEIN,URINE 2+ (NEGATIVE); UROBILINOGEN,URINE NORMAL (NORMAL)
[2024-02-28 16:34] LABS: APPEARANCE,URINE CLEAR (CLEAR); COLOR,URINE YELLOW (YELLOW)
[2024-02-28 16:36] LABS: BACTERIA,URINE 1+ /HPF (NEGATIVE); SQUAMOUS EPITHELIAL CELL,UR RARE /HPF (NEGATIVE)
[2024-02-28 16:37] LABS: HYALINE CASTS, URINE FEW /LPF (NEGATIVE)
[2024-02-28] MEDS: LOPRESSOR INJ 5 MG AMP IVP SCH (20:10)
[2024-02-29 04:39] LABS: BASOPHILS % (AUTO) 0.6 % (0.2-1.0); EOSINOPHILS % (AUTO) 0.5 % (0.9-2.9); HEMATOCRIT 40.7 % (42.0-54.0); HEMOGLOBIN 13.7 g/dL (13.5-18.0); LYMPHOCYTES # (AUTO) 0.7 X10^3/uL (1.3-2.9); LYMPHOCYTES % (AUTO) 10.5 % (21.0-51.0); MEAN CORPUSCULAR HEMOGLOBIN 29.9 pg (27.0-34.0); MEAN CORPUSCULAR HGB CONC 33.6 g/dL (33.0-35.0); MEAN CORPUSCULAR VOLUME 89.1 fL (80.0-100.0); MEAN PLATELET VOLUME 8.3 fL (7.4-11.0); MONOCYTES % (AUTO) 15.3 % (0.0-13.0); NEUTROPHILS # (AUTO) 4.6 x10^3/uL (2.2-4.8); NEUTROPHILS % (AUTO) 73.1 % (42.0-75.0); PLATELET COUNT 176 X10^3/uL (150.0-450.0); RED BLOOD COUNT 4.57 X10^6/uL (4.7-6.0); WHITE BLOOD COUNT 6.3 X10^3/uL (3.6-10.0)
[2024-02-29 04:53] LABS: ALANINE AMINOTRANSFERASE 36 Units/L (12-78); ALBUMIN 2.9 g/dL (3.4-5.0); ALKALINE PHOSPHATASE 61 Units/L (46-116); ASPARTATE AMINO TRANSFERASE 25 Units/L (15-37); BLOOD UREA NITROGEN 19 mg/dL (7-18); CALCIUM 8.3 mg/dL (8.5-10.1); CARBON DIOXIDE 27.1 mmol/L (21-32); CHLORIDE 105 mmol/L (98-107); COR CA(FOR HYPOALB) 9.2 mg/dL (8.5-10.1); CREATININE 0.75 mg/dL (0.70-1.30); GLUCOSE 108 mg/dL (65-99); POTASSIUM 3.6 mmol/L (3.5-5.1); SODIUM 140 mmol/L (136-145); TOTAL PROTEIN 6.2 g/dL (6.4-8.2); eGFR NON BLACK RACES > 60 (>60)
[2024-02-29] MEDS ORDERED: CONSULT PHARMACY - POTASSIUM & MAGNESIUM XX SCH (07:00)
--- NOTE | 2024-02-29 09:13 | DR.CONSULT ---
CONSULT Consultation for Day of: Date: 02/28/24 Chief Complaint Chief Complaint: Medical management for multiple medical problems Allergies Allergies Allergy/AdvReac Type Severity Reaction Status Date / Time Penicillins Allergy Unknown Verified 02/27/24 16:36 Sulfa (Sulfonamide Allergy Unknown Verified 02/27/24 16:36 Antibiotics) [SULFA] History of Present Illness History of Present Illness: This is a pleasant 73-year-old male who is currently in for a small bowel obstruction. Patient had an appendectomy about a year ago and a right-sided Heema colectomy for ischemic bowel. He currently has dilated loops of bowels and has NG tube in place to help reduce his abdominal swelling. He has a history of hypertension, diabetes mellitus type 2, hyperlipidemia. We will start treating his hypertension with IV Lopressor as he already has a clonidine patch on. Will put him on a slight scale regular insulin per protocol for his diabetes in the meantime. Thank you for the consult we will follow with you. Past Medical History Past Medical History: Anxiety, Coronary Artery Disease, Depression, Diabetes and GERD Past Surgical History Surgical History: Bowel Resection, Cholecystectomy and Tonsillectomy Family History Family Medical History: Diabetes Mellitus and Hypertension Social History Does patient currently use any type of tobacco product: No Have you used tobacco products in the last 12 months: No Type of Tobacco Use: None Does any household member use tobacco: No Alcohol Use: None Drug Use: None Medications Home Medications: Penicillins Allergy (Unknown, Verified 02/27/24 16:36) Sulfa (Sulfonamide Antibiotics) [SULFA] Allergy (Unknown, Verified 02/27/24 16:36) CONTINUE taking the following medications bupropion HCl 300 mg 24 hr tablet, extended release 300 mg PO QDAY 02/27/24 [History] clonidine 0.3 mg/24 hr weekly transdermal patch 1 patch QWEEK 02/27/24 [History] doxazosin 2 mg tablet 2 mg PO QDAY 02/27/24 [History] folic acid 1 mg tablet 1 mg PO QDAY 02/27/24 [History] insulin glargine 100 unit/mL (3 mL) subcutaneous pen (Lantus Solostar U-100 Insulin) 30 unit subcut BID 02/27/24 [History] metoclopramide HCl 10 mg tablet 10 mg PO QPM 02/27/24 [History] nebivolol 20 mg tablet 20 mg PO QDAY 02/27/24 [History] nifedipine 60 mg tablet,extended release 60 mg PO BID 02/27/24 [History] olmesartan 40 mg-hydrochlorothiazide 25 mg tablet 1 tab PO QDAY 02/27/24 [History] omeprazole 40 mg capsule,delayed release 40 mg PO QDAY 02/27/24 [History] ropinirole 1 mg tablet 1 - 2 mg PO QPM 02/27/24 [History] sucralfate 1 gram tablet 0.5 g PO QID 02/27/24 [History] temazepam 30 mg capsule 30 mg PO QPM 02/27/24 [History] tramadol 50 mg tablet 50 mg PO QDAY 02/27/24 [History] Review of Systems Constitutional: No Symptoms Reported Eyes: No Symptoms Reported ENT: No Symptoms Reported Respiratory: No Symptoms Reported Cardiovascular: No Symptoms Reported Gastrointestinal: No Symptoms Reported Genitourinary: No Symptoms Reported Musculoskeletal: No Symptoms Reported Skin: No Symptoms Reported Neurological: No Symptoms Reported Physical Exam Vital Signs: Vital Signs Temperature 98.7 F Temperature 98.5 F Pulse Rate 69 Pulse Rate 64 Pulse Rate 64 Pulse Rate 60 Pulse Rate 78 Pulse Rate 60 Pulse Rate 70 Respiratory Rate 20 Respiratory Rate 21 Respiratory Rate 22 Respiratory Rate 21 Respiratory Rate 22 Respiratory Rate 18 Respiratory Rate 20 Blood Pressure 170/77 Blood Pressure 170/77 Blood Pressure 179/75 Blood Pressure 178/75 Blood Pressure 171/77 Blood Pressure 162/79 Blood Pressure 178/74 Blood Pressure 169/82 O2 Sat by Pulse Oximetry 95 O2 Sat by Pulse Oximetry 95 O2 Sat by Pulse Oximetry 98 O2 Sat by Pulse Oximetry 98 O2 Sat by Pulse Oximetry 98 O2 Sat by Pulse Oximetry 96 O2 Sat by Pulse Oximetry 96 Oriented: Normal, Time, Person and Place Eyes: Normal Ear: Normal Nose: Normal Throat: Normal Respiratory: Clear Throughout Cardiovascular: Normal Auscultation: Bowel Sounds: Decreased Palpation: Normal Tenderness: Diffuse Skin: Normal Musculoskeletal: Normal Psychiatric: Normal Mood Description: Calm Affect: Normal Speech Pattern: Clear and Appropriate Plan (1) Small bowel obstruction: Status: Acute Plan: Continue NG tube and treatment per general surgery (2) Dehydration: Status: Acute (3) Hypertension: Status: Chronic Qualifiers: Hypertension type: primary hypertension Qualified Code(s): I10 - Essential (primary) hypertension Plan: Continue clonidine patch 0.3 mg apply weekly. I will add IV Lopr essor 5 mg IV every 12 hours. (4) Gastroesophageal reflux disease: Status: Chronic Qualifiers: Esophagitis presence: esophagitis presence not specified Qualified Code(s): K21.9 - Gastro-esophageal reflux disease without esophagitis Plan: IV Protonix (5) Dyslipidemia: Status: Chronic Plan: Hold statins at this time (6) Controlled type 2 diabetes mellitus without complication: Status: Chronic Qualifiers: Diabetes mellitus intermission coordinator insulin use: with snf use Qualified Code(s): E11.9 - Type 2 diabetes mellitus without complications; Z79.4 - [facility] (current) use of insulin Plan: Fine scale regular insulin per protocol
--- NOTE | 2024-02-29 09:15 | PCM.PROG ---
Progress Note Progress Note for Day of Date of Exam: 02/29/24 Subjective Subjective: The patient states he is doing okay this morning and he has not had no significant events of the night. I see that his blood pressure still elevated at this time. He has been started on IV Lopressor 5 mg IV every 12 when he is on the clonidine patches. I will add IV enalapril at this morning at 145 mg IV every 6 hours. Hopefully this will get his blood pressure under better control. Will continue/scale regular insulin per protocol for his diabetes. Past Medical Family Social History Allergies: Allergies Penicillins Allergy (Unknown, Verified 02/27/24 16:36) Sulfa (Sulfonamide Antibiotics) [SULFA] Allergy (Unknown, Verified 02/27/24 16:36) Review of Systems ROS: No change since H&P Vital Signs and I&O's Vital Signs: Vital Signs Temperature 98.7 F Temperature 98.5 F Pulse Rate 69 Pulse Rate 64 Pulse Rate 64 Pulse Rate 60 Pulse Rate 78 Pulse Rate 60 Pulse Rate 70 Respiratory Rate 20 Respiratory Rate 21 Respiratory Rate 22 Respiratory Rate 21 Respiratory Rate 22 Respiratory Rate 18 Respiratory Rate 20 Blood Pressure 170/77 Blood Pressure 170/77 Blood Pressure 179/75 Blood Pressure 178/75 Blood Pressure 171/77 Blood Pressure 162/79 Blood Pressure 178/74 Blood Pressure 169/82 O2 Sat by Pulse Oximetry 95 O2 Sat by Pulse Oximetry 95 O2 Sat by Pulse Oximetry 98 O2 Sat by Pulse Oximetry 98 O2 Sat by Pulse Oximetry 98 O2 Sat by Pulse Oximetry 96 O2 Sat by Pulse Oximetry 96 Intake and Output: Intake & Output 02/26/24 02/27/24 02/28/24 02/29/24 11:59 11:59 11:59 11:59 Intake Total 891 / 891 2934 / 2934 Output Total 725 / 725 1775 / 1775 Balance 166 / 166 1159 / 1159 Physical Exam Oriented: Normal, Time, Person and Place Eyes: Normal Ear: Normal Nose: Normal Throat: Normal Respiratory: Normal Cardiovascular: Normal Auscultation: Bowel Sounds: Decreased Tenderness: Diffuse Skin: Normal Musculoskeletal: Normal Psychiatric: Normal Mood Description: Calm Affect: Normal Speech Pattern: Clear and Appropriate Laboratory and Diagnostics 02/29/24 04:05 02/29/24 04:05 Labs: Laboratory WBC 6.3 X10^3/uL (3.6-10.0) 02/29/24 04:05 RBC 4.57 X10^6/uL (4.7-6.0) L 02/29/24 04:05 Hgb 13.7 g/dL (13.5-18.0) 02/29/24 04:05 Hct 40.7 % (42.0-54.0) L 02/29/24 04:05 MCV 89.1 fL (80.0-100.0) 02/29/24 04:05 MCH 29.9 pg (27.0-34.0) 02/29/24 04:05 MCHC 33.6 g/dL (33.0-35.0) 02/29/24 04:05 RDW 15.0 % (11.6-16.5) 02/29/24 04:05 Plt Count 176 X10^3/uL (150.0-450.0) 02/29/24 04:05 MPV 8.3 fL (7.4-11.0) 02/29/24 04:05 Neut % (Auto) 73.1 % (42.0-75.0) 02/29/24 04:05 Lymph % (Auto) 10.5 % (21.0-51.0) L 02/29/24 04:05 [place] % (Auto) 15.3 % (0.0-13.0) H 02/29/24 04:05 Eos % (Auto) 0.5 % (0.9-2.9) L 02/29/24 04:05 Baso % (Auto) 0.6 % (0.2-1.0) 02/29/24 04:05 Neut # (Auto) 4.6 x10^3/uL (2.2-4.8) 02/29/24 04:05 Lymph # (Auto) 0.7 X10^3/uL (1.3-2.9) L 02/29/24 04:05 [place] # (Auto) 1.0 x10^3/uL (0.3-0.8) H 02/29/24 04:05 Eos # (Auto) 0.0 x10^3/uL (0.0-0.2) 02/29/24 04:05 Baso # (Auto) 0.0 X10^3/uL (0.0-0.1) 02/29/24 04:05 Absolute Nucleated RBC 0.0 /100WBC 02/29/24 04:05 Sodium 140 mmol/L (136-145) 02/29/24 04:05 Corrected Sodium TNP 02/29/24 04:05 Potassium 3.6 mmol/L (3.5-5.1) 02/29/24 04:05 Chloride 105 mmol/L (98-107) 02/29/24 04:05 Carbon Dioxide 27.1 mmol/L (21-32) 02/29/24 04:05 BUN 19 mg/dL (7-18) H 02/29/24 04:05 Creatinine 0.75 mg/dL (0.70-1.30) 02/29/24 04:05 Est GFR (MDRD) Af Amer > 60 (>60) 02/29/24 04:05 Est GFR (MDRD) Non-Af > 60 (>60) 02/29/24 04:05 Glucose 108 mg/dL (65-99) H 02/29/24 04:05 Calcium 8.3 mg/dL (8.5-10.1) L 02/29/24 04:05 Corrected Calcium 9.2 mg/dL (8.5-10.1) 02/29/24 04:05 Magnesium 2.0 mg/dL (2.0-2.9) 02/29/24 04:05 Total Bilirubin 0.70 mg/dL (0.2-1.0) 02/29/24 04:05 AST 25 Units/L (15-37) 02/29/24 04:05 ALT 36 Units/L (12-78) 02/29/24 04:05 Alkaline Phosphatase 61 Units/L (46-116) 02/29/24 04:05 Total Protein 6.2 g/dL (6.4-8.2) L 02/29/24 04:05 Albumin 2.9 g/dL (3.4-5.0) L 02/29/24 04:05 Globulin 3.3 g/dL (2.5-4.5) 02/29/24 04:05 Albumin/Globulin Ratio 0.9 Ratio (1.1-2.1) L 02/29/24 04:05 Amylase 76 Units/L (25-115) 02/27/24 18:35 Lipase 38 Units/L (16-77) 02/27/24 18:35 Specimen Type Catherized urine 02/28/24 15:45 Urine Color Yellow (YELLOW) 02/28/24 15:45 Urine Appearance Clear (CLEAR) 02/28/24 15:45 Urine pH 6.0 (5.0 - 8.0) 02/28/24 15:45 Ur Specific [place] 1.020 (1.000-1.030) 02/28/24 15:45 Urine Protein 2+ (NEGATIVE) 02/28/24 15:45 Urine Glucose (UA) Negative (NEGATIVE) 02/28/24 15:45 Urine Ketones 3+ (NEGATIVE) 02/28/24 15:45 Urine Blood 3+ (NEGATIVE) 02/28/24 15:45 Urine Nitrite Negative (NEGATIVE) 02/28/24 15:45 Urine Bilirubin Negative (NEGATIVE) 02/28/24 15:45 Urine Urobilinogen Normal (NORMAL) 02/28/24 15:45 Ur Leukocyte Esterase Negative (NEGATIVE) 02/28/24 15:45 Urine RBC 10-20 /HPF (0-3) A 02/28/24 15:45 Urine WBC 0-2 /HPF (0-5) 02/28/24 15:45 Ur Squamous Epith Cells Rare /HPF (NEGATIVE) 02/28/24 15:45 Amorphous Sediment Trace /HPF (NEGATIVE) 02/28/24 15:45 Urine Bacteria 1+ /HPF (NEGATIVE) 02/28/24 15:45 Hyaline Casts Few /LPF (NEGATIVE) 02/28/24 15:45 Urine Mucus Few /HPF (NEGATIVE) 02/28/24 15:45 Ur Culture Indicated? No/not indicated 02/28/24 15:45 Radiology Reviewed: Yes Plan (1) Small bowel obstruction: Status: Acute Plan: Follow-up KUB later this morning (2) Dehydration: Status: Acute Plan: IV hydration. (3) Hypertension: Status: Chronic Qualifiers: Hypertension type: primary hypertension Qualified Code(s): I10 - Essential (primary) hypertension Plan: I am adding enalaprilat 1.25 mg IV every 6 hours this morning for improved blood pressure control. 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
[2024-02-29] MEDS: K-RIDER 10 MEQ/100 ML WATER 10 MEQ/100 ML BAG IV SCH (09:27)
--- NOTE | 2024-02-29 11:16 | DR.PROGNOT ---
HOSPITAL PROGRESS NOTE Progress Note for Day of: Progress Note Date: 02/29/24 Chief Complaint Chief Complaint: Less abdominal pain today, had 1 episode of vomiting yesterday. Passing flatus but no bowel movement. KUB is showing a dilated small bowel loops consistent with partial small bowel obstruction. WBC is 6.3, hemoglobin 13.7, normal electrolytes and BUN/creatinine. Blood pressure is slightly elevated and being managed by Dr. Ley.. Patient is afebrile. The abdomen is soft with hypoactive bowel sounds, moderate tympany. Past Medical Family Social History Allergies: Allergies Penicillins Allergy (Unknown, Verified 02/27/24 16:36) Sulfa (Sulfonamide Antibiotics) [SULFA] Allergy (Unknown, Verified 02/27/24 16:36) Review Of Systems ROS: No change since H&P Vital Signs Vital Signs: Vital Signs Temperature 98.7 F Temperature 98.5 F Pulse Rate 69 Pulse Rate 69 Pulse Rate 69 Pulse Rate 64 Pulse Rate 64 Pulse Rate 60 Pulse Rate 78 Respiratory Rate 21 Respiratory Rate 21 Respiratory Rate 20 Respiratory Rate 21 Respiratory Rate 22 Respiratory Rate 21 Respiratory Rate 22 Blood Pressure 165/76 Blood Pressure 174/79 Blood Pressure 170/77 Blood Pressure 170/77 Blood Pressure 179/75 Blood Pressure 178/75 Blood Pressure 171/77 Blood Pressure 162/79 O2 Sat by Pulse Oximetry 96 O2 Sat by Pulse Oximetry 96 O2 Sat by Pulse Oximetry 95 O2 Sat by Pulse Oximetry 95 O2 Sat by Pulse Oximetry 98 O2 Sat by Pulse Oximetry 98 O2 Sat by Pulse Oximetry 98 Physical Exam Oriented: Normal, Time, Person and Place Eyes: Normal Ear: Normal Nose: Normal Throat: Normal Respiratory: Normal Cardiovascular: Normal GI:Auscultation: Decreased GI:Palpation: Normal GI: Tenderness: Diffuse and Other (Soft abdomen with mild distention and tympany, bowel sounds present but hypoactive.) Skin: Normal Musculoskeletal: Normal Psychiatric: Normal Mood Description: Calm Affect: Normal Speech Pattern: Clear and Appropriate Laboratory and Diagnostics 02/29/24 04:05 02/29/24 04:05 Labs: Laboratory WBC 6.3 X10^3/uL (3.6-10.0) 02/29/24 04:05 RBC 4.57 X10^6/uL (4.7-6.0) L 02/29/24 04:05 Hgb 13.7 g/dL (13.5-18.0) 02/29/24 04:05 Hct 40.7 % (42.0-54.0) L 02/29/24 04:05 MCV 89.1 fL (80.0-100.0) 02/29/24 04:05 MCH 29.9 pg (27.0-34.0) 02/29/24 04:05 MCHC 33.6 g/dL (33.0-35.0) 02/29/24 04:05 RDW 15.0 % (11.6-16.5) 02/29/24 04:05 Plt Count 176 X10^3/uL (150.0-450.0) 02/29/24 04:05 MPV 8.3 fL (7.4-11.0) 02/29/24 04:05 Neut % (Auto) 73.1 % (42.0-75.0) 02/29/24 04:05 Lymph % (Auto) 10.5 % (21.0-51.0) L 02/29/24 04:05 [place] % (Auto) 15.3 % (0.0-13.0) H 02/29/24 04:05 Eos % (Auto) 0.5 % (0.9-2.9) L 02/29/24 04:05 Baso % (Auto) 0.6 % (0.2-1.0) 02/29/24 04:05 Neut # (Auto) 4.6 x10^3/uL (2.2-4.8) 02/29/24 04:05 Lymph # (Auto) 0.7 X10^3/uL (1.3-2.9) L 02/29/24 04:05 [place] # (Auto) 1.0 x10^3/uL (0.3-0.8) H 02/29/24 04:05 Eos # (Auto) 0.0 x10^3/uL (0.0-0.2) 02/29/24 04:05 Baso # (Auto) 0.0 X10^3/uL (0.0-0.1) 02/29/24 04:05 Absolute Nucleated RBC 0.0 /100WBC 02/29/24 04:05 Sodium 140 mmol/L (136-145) 02/29/24 04:05 Corrected Sodium TNP 02/29/24 04:05 Potassium 3.6 mmol/L (3.5-5.1) 02/29/24 04:05 Chloride 105 mmol/L (98-107) 02/29/24 04:05 Carbon Dioxide 27.1 mmol/L (21-32) 02/29/24 04:05 BUN 19 mg/dL (7-18) H 02/29/24 04:05 Creatinine 0.75 mg/dL (0.70-1.30) 02/29/24 04:05 Est GFR (MDRD) Af Amer > 60 (>60) 02/29/24 04:05 Est GFR (MDRD) Non-Af > 60 (>60) 02/29/24 04:05 Glucose 108 mg/dL (65-99) H 02/29/24 04:05 Calcium 8.3 mg/dL (8.5-10.1) L 02/29/24 04:05 Corrected Calcium 9.2 mg/dL (8.5-10.1) 02/29/24 04:05 Magnesium 2.0 mg/dL (2.0-2.9) 02/29/24 04:05 Total Bilirubin 0.70 mg/dL (0.2-1.0) 02/29/24 04:05 AST 25 Units/L (15-37) 02/29/24 04:05 ALT 36 Units/L (12-78) 02/29/24 04:05 Alkaline Phosphatase 61 Units/L (46-116) 02/29/24 04:05 Total Protein 6.2 g/dL (6.4-8.2) L 02/29/24 04:05 Albumin 2.9 g/dL (3.4-5.0) L 02/29/24 04:05 Globulin 3.3 g/dL (2.5-4.5) 02/29/24 04:05 Albumin/Globulin Ratio 0.9 Ratio (1.1-2.1) L 02/29/24 04:05 Amylase 76 Units/L (25-115) 02/27/24 18:35 Lipase 38 Units/L (16-77) 02/27/24 18:35 Specimen Type Catherized urine 02/28/24 15:45 Urine Color Yellow (YELLOW) 02/28/24 15:45 Urine Appearance Clear (CLEAR) 02/28/24 15:45 Urine pH 6.0 (5.0 - 8.0) 02/28/24 15:45 Ur Specific [place] 1.020 (1.000-1.030) 02/28/24 15:45 Urine Protein 2+ (NEGATIVE) 02/28/24 15:45 Urine Glucose (UA) Negative (NEGATIVE) 02/28/24 15:45 Urine Ketones 3+ (NEGATIVE) 02/28/24 15:45 Urine Blood 3+ (NEGATIVE) 02/28/24 15:45 Urine Nitrite Negative (NEGATIVE) 02/28/24 15:45 Urine Bilirubin Negative (NEGATIVE) 02/28/24 15:45 Urine Urobilinogen Normal (NORMAL) 02/28/24 15:45 Ur Leukocyte Esterase Negative (NEGATIVE) 02/28/24 15:45 Urine RBC 10-20 /HPF (0-3) A 02/28/24 15:45 Urine WBC 0-2 /HPF (0-5) 02/28/24 15:45 Ur Squamous Epith Cells Rare /HPF (NEGATIVE) 02/28/24 15:45 Amorphous Sediment Trace /HPF (NEGATIVE) 02/28/24 15:45 Urine Bacteria 1+ /HPF (NEGATIVE) 02/28/24 15:45 Hyaline Casts Few /LPF (NEGATIVE) 02/28/24 15:45 Urine Mucus Few /HPF (NEGATIVE) 02/28/24 15:45 Ur Culture Indicated? No/not indicated 02/28/24 15:45 Assessment and Plan 1: Partial small bowel obstruction, Will keep the NG tube and IV fluid. DVT prophylaxis. 2: Abdominal adhesions. Status post multiple abdominal surgeries. 3: Diabetes mellitus. 4: Coronary artery disease 5: Chronic gastroesophageal reflux disease
--- NOTE | 2024-02-29 11:23 | RAD ---
EXAM: KUB HISTORY: SBO COMPARISON: 02/28/2024 FINDINGS: There is increasing distention of proximal small bowel/jejunum, measuring as much as 5 cm in diamete r. There is a paucity of colon gas. No mass formation or ascites is demonstrated. IMPRESSION: Significant selective small-bowel distention consistent with an obstructing process. THIS IS AN ELECTRONICALLY VERIFIED FINAL REPORT 02/29/2024 11:01 AM - Electronically signed by Barrington Recinos MD
[2024-02-29] MEDS: DILAUDID INJ IVP PRN (12:42)
[2024-02-29] MEDS: VASOTEC INJ 2.5 MG VIAL IVP PRN (14:06)
[2024-02-29] MEDS: VASOTEC INJ 2.5 MG VIAL IVP SCH (21:05)
--- NOTE | 2024-03-01 06:02 | RAD ---
EXAM:KUBHISTORY:SMALL BOWEL OBSTRUCTION; CHF, CAD, DM, HTN, GERD, PACEMAKER, SLEEP APNEA SX: BOWEL RESECTION, GREGG, TONSILS, HERNIA REPAIRCOMPARISON:NoneFINDINGS:Evaluation of the abdomen demonstrates prominent gas-filled small bowel loops overlying the abdomen measuring up to at least 5.3 cm in diameter. Enteric tube tip overlying the gastric lumen. No evidence of pneumoperitoneum. No pathologic soft tissue calcification. No acute osseous abnormality.IMPRESSION:Similar small-bowel distention concerning for small-bowel obstruction. Continued follow-up recommended.THIS IS AN ELECTRONICALLY VERIFIED FINAL REPORT03/01/2024 5:59 AM - Electronically signed by Gurjit Miller MD
[2024-03-01 07:04] LABS: BASOPHILS % (AUTO) 0.3 % (0.2-1.0); EOSINOPHILS % (AUTO) 0.5 % (0.9-2.9); HEMATOCRIT 41.5 % (42.0-54.0); HEMOGLOBIN 14.1 g/dL (13.5-18.0); LYMPHOCYTES # (AUTO) 0.7 X10^3/uL (1.3-2.9); LYMPHOCYTES % (AUTO) 12.2 % (21.0-51.0); MEAN CORPUSCULAR HGB CONC 33.9 g/dL (33.0-35.0); MEAN CORPUSCULAR VOLUME 88.7 fL (80.0-100.0); MEAN PLATELET VOLUME 7.9 fL (7.4-11.0); MONOCYTES # (AUTO) 0.9 x10^3/uL (0.3-0.8); MONOCYTES % (AUTO) 16.3 % (0.0-13.0); NEUTROPHILS % (AUTO) 70.7 % (42.0-75.0); PLATELET COUNT 154 X10^3/uL (150.0-450.0); RED BLOOD COUNT 4.68 X10^6/uL (4.7-6.0); RED CELL DISTRIBUTION WIDTH 14.6 % (11.6-16.5); WHITE BLOOD COUNT 5.7 X10^3/uL (3.6-10.0)
[2024-03-01 07:21] LABS: ALANINE AMINOTRANSFERASE 37 Units/L (12-78); ALBUMIN 2.6 g/dL (3.4-5.0); ALKALINE PHOSPHATASE 58 Units/L (46-116); ASPARTATE AMINO TRANSFERASE 46 Units/L (15-37); BLOOD UREA NITROGEN 17 mg/dL (7-18); CARBON DIOXIDE 24.5 mmol/L (21-32); CHLORIDE 107 mmol/L (98-107); COR CA(FOR HYPOALB) 9.1 mg/dL (8.5-10.1); COR NA(FOR HYPERGLY) 142 mmol/L (136-145); CREATININE 0.66 mg/dL (0.70-1.30); GLUCOSE 122 mg/dL (65-99); MAGNESIUM 2.1 mg/dL (2.0-2.9); POTASSIUM 3.5 mmol/L (3.5-5.1); SODIUM 141 mmol/L (136-145); eGFR NON BLACK RACES > 60 (>60)
--- NOTE | 2024-03-01 09:10 | DR.PROGNOT ---
HOSPITAL PROGRESS NOTE Progress Note for Day of: Progress Note Date: 03/01/24 Chief Complaint Chief Complaint: Was complaining of abdominal pain last night, no vomiting. Minimal drainage and NG tube, repeated KUB showed increased dilated loops in the mid abdomen. No bowel movement yet but passing small amount of flatus. CBC and electrolytes are normal. Fair urine output. Blood pressure is still high and being managed by Dr. Ley. Afebrile. Abdomen is soft with moderate distention and tympany. Past Medical Family Social History Past Med/Fam/Surg Hx: No changes since H&P Allergies: Allergies Penicillins Allergy (Unknown, Verified 02/27/24 16:36) Sulfa (Sulfonamide Antibiotics) [SULFA] Allergy (Unknown, Verified 02/27/24 16:36) Review Of Systems ROS: No change since H&P Vital Signs Vital Signs: Vital Signs Temperature 98.0 F Temperature 98.1 F Pulse Rate 69 Pulse Rate 69 Pulse Rate 69 Pulse Rate 60 Pulse Rate 60 Pulse Rate 60 Pulse Rate 60 Pulse Rate 60 Pulse Rate 61 Pulse Rate 60 Pulse Rate 60 Pulse Rate 61 Pulse Rate 65 Pulse Rate 75 Pulse Rate 60 Pulse Rate 75 Pulse Rate 62 Pulse Rate 60 Pulse Rate 62 Pulse Rate 60 Pulse Rate 60 Pulse Rate 60 Respiratory Rate 23 Respiratory Rate 23 Respiratory Rate 14 Respiratory Rate 23 Respiratory Rate 23 Respiratory Rate 21 Respiratory Rate 20 Respiratory Rate 20 Respiratory Rate 37 Respiratory Rate 32 Respiratory Rate 36 Respiratory Rate 37 Respiratory Rate 26 Respiratory Rate 29 Respiratory Rate 24 Respiratory Rate 29 Respiratory Rate 26 Respiratory Rate 26 Respiratory Rate 26 Respiratory Rate 19 Respiratory Rate 21 Respiratory Rate 19 Blood Pressure 197/85 Blood Pressure 175/79 Blood Pressure 175/79 Blood Pressure 191/90 Blood Pressure 173/78 Blood Pressure 173/78 Blood Pressure 173/78 Blood Pressure 178/79 Blood Pressure 170/79 Blood Pressure 170/79 Blood Pressure 172/79 Blood Pressure 184/82 Blood Pressure 172/79 Blood Pressure 182/84 Blood Pressure 182/84 Blood Pressure 174/82 Blood Pressure 180/80 Blood Pressure 174/82 Blood Pressure 170/81 Blood Pressure 183/81 Blood Pressure 170/81 Blood Pressure 162/78 Blood Pressure 182/81 Blood Pressure 162/78 O2 Sat by Pulse Oximetry 96 O2 Sat by Pulse Oximetry 97 O2 Sat by Pulse Oximetry 95 O2 Sat by Pulse Oximetry 96 O2 Sat by Pulse Oximetry 96 O2 Sat by Pulse Oximetry 96 O2 Sat by Pulse Oximetry 97 O2 Sat by Pulse Oximetry 96 O2 Sat by Pulse Oximetry 96 O2 Sat by Pulse Oximetry 97 O2 Sat by Pulse Oximetry 96 O2 Sat by Pulse Oximetry 96 O2 Sat by Pulse Oximetry 97 O2 Sat by Pulse Oximetry 96 O2 Sat by Pulse Oximetry 96 O2 Sat by Pulse Oximetry 96 O2 Sat by Pulse Oximetry 96 O2 Sat by Pulse Oximetry 96 O2 Sat by Pulse Oximetry 97 O2 Sat by Pulse Oximetry 96 O2 Sat by Pulse Oximetry 96 O2 Sat by Pulse Oximetry 95 O2 Sat by Pulse Oximetry 96 Physical Exam Oriented: Normal, Time, Person and Place Eyes: Normal Ear: Normal Nose: Normal Throat: Normal Respiratory: Normal Cardiovascular: Normal GI:Auscultation: Decreased GI:Palpation: Normal GI: Tenderness: Diffuse and Other (Soft abdomen with mild distention and tympany, bowel sounds present but hypoactive.) Skin: Normal Musculoskeletal: Normal Psychiatric: Normal Mood Description: Calm Affect: Normal Speech Pattern: Clear and Appropriate Laboratory and Diagnostics 03/01/24 06:52 03/01/24 06:52 Labs: Laboratory WBC 5.7 X10^3/uL (3.6-10.0) 03/01/24 06:52 RBC 4.68 X10^6/uL (4.7-6.0) L 03/01/24 06:52 Hgb 14.1 g/dL (13.5-18.0) 03/01/24 06:52 Hct 41.5 % (42.0-54.0) L 03/01/24 06:52 MCV 88.7 fL (80.0-100.0) 03/01/24 06:52 MCH 30.0 pg (27.0-34.0) 03/01/24 06:52 MCHC 33.9 g/dL (33.0-35.0) 03/01/24 06:52 RDW 14.6 % (11.6-16.5) 03/01/24 06:52 Plt Count 154 X10^3/uL (150.0-450.0) 03/01/24 06:52 MPV 7.9 fL (7.4-11.0) 03/01/24 06:52 Neut % (Auto) 70.7 % (42.0-75.0) 03/01/24 06:52 Lymph % (Auto) 12.2 % (21.0-51.0) L 03/01/24 06:52 [place] % (Auto) 16.3 % (0.0-13.0) H 03/01/24 06:52 Eos % (Auto) 0.5 % (0.9-2.9) L 03/01/24 06:52 Baso % (Auto) 0.3 % (0.2-1.0) 03/01/24 06:52 Neut # (Auto) 4.0 x10^3/uL (2.2-4.8) 03/01/24 06:52 Lymph # (Auto) 0.7 X10^3/uL (1.3-2.9) L 03/01/24 06:52 [place] # (Auto) 0.9 x10^3/uL (0.3-0.8) H 03/01/24 06:52 Eos # (Auto) 0.0 x10^3/uL (0.0-0.2) 03/01/24 06:52 Baso # (Auto) 0.0 X10^3/uL (0.0-0.1) 03/01/24 06:52 Absolute Nucleated RBC 0.1 /100WBC 03/01/24 06:52 Sodium 141 mmol/L (136-145) 03/01/24 06:52 Corrected Sodium 142 mmol/L (136-145) 03/01/24 06:52 Potassium 3.5 mmol/L (3.5-5.1) 03/01/24 06:52 Chloride 107 mmol/L (98-107) 03/01/24 06:52 Carbon Dioxide 24.5 mmol/L (21-32) 03/01/24 06:52 BUN 17 mg/dL (7-18) 03/01/24 06:52 Creatinine 0.66 mg/dL (0.70-1.30) L 03/01/24 06:52 Est GFR (MDRD) Af Amer > 60 (>60) 03/01/24 06:52 Est GFR (MDRD) Non-Af > 60 (>60) 03/01/24 06:52 Glucose 122 mg/dL (65-99) H 03/01/24 06:52 Calcium 8.0 mg/dL (8.5-10.1) L 03/01/24 06:52 Corrected Calcium 9.1 mg/dL (8.5-10.1) 03/01/24 06:52 Magnesium 2.1 mg/dL (2.0-2.9) 03/01/24 06:52 Total Bilirubin 0.60 mg/dL (0.2-1.0) 03/01/24 06:52 AST 46 Units/L (15-37) H 03/01/24 06:52 ALT 37 Units/L (12-78) 03/01/24 06:52 Alkaline Phosphatase 58 Units/L (46-116) 03/01/24 06:52 Total Protein 6.0 g/dL (6.4-8.2) L 03/01/24 06:52 Albumin 2.6 g/dL (3.4-5.0) L 03/01/24 06:52 Globulin 3.4 g/dL (2.5-4.5) 03/01/24 06:52 Albumin/Globulin Ratio 0.8 Ratio (1.1-2.1) L 03/01/24 06:52 Amylase 76 Units/L (25-115) 02/27/24 18:35 Lipase 38 Units/L (16-77) 02/27/24 18:35 Specimen Type Catherized urine 02/28/24 15:45 Urine Color Yellow (YELLOW) 02/28/24 15:45 Urine Appearance Clear (CLEAR) 02/28/24 15:45 Urine pH 6.0 (5.0 - 8.0) 02/28/24 15:45 Ur Specific [place] 1.020 (1.000-1.030) 02/28/24 15:45 Urine Protein 2+ (NEGATIVE) 02/28/24 15:45 Urine Glucose (UA) Negative (NEGATIVE) 02/28/24 15:45 Urine Ketones 3+ (NEGATIVE) 02/28/24 15:45 Urine Blood 3+ (NEGATIVE) 02/28/24 15:45 Urine Nitrite Negative (NEGATIVE) 02/28/24 15:45 Urine Bilirubin Negative (NEGATIVE) 02/28/24 15:45 Urine Urobilinogen Normal (NORMAL) 02/28/24 15:45 Ur Leukocyte Esterase Negative (NEGATIVE) 02/28/24 15:45 Urine RBC 10-20 /HPF (0-3) A 02/28/24 15:45 Urine WBC 0-2 /HPF (0-5) 02/28/24 15:45 Ur Squamous Epith Cells Rare /HPF (NEGATIVE) 02/28/24 15:45 Amorphous Sediment Trace /HPF (NEGATIVE) 02/28/24 15:45 Urine Bacteria 1+ /HPF (NEGATIVE) 02/28/24 15:45 Hyaline Casts Few /LPF (NEGATIVE) 02/28/24 15:45 Urine Mucus Few /HPF (NEGATIVE) 02/28/24 15:45 Ur Culture Indicated? No/not indicated 02/28/24 15:45 Assessment and Plan 1: Partial small bowel obstruction, Will keep the NG tube and IV fluid. DVT prophylaxis. To place PICC line and start patient on TPN. 2: Abdominal adhesions. Status post multiple abdominal surgeries. 3: Diabetes mellitus. 4: Coronary artery disease 5: Chronic gastroesophageal reflux disease 6: Hypertension,
--- NOTE | 2024-03-01 12:58 | PCM.PROG ---
Progress Note Progress Note for Day of Date of Exam: 03/01/24 Subjective Subjective: The patient reports he is doing about the same today. He still has NG tube in place and the KUB this morning still says he is having signs of a small bowel obstruction. His blood pressure remains elevated despite adding on the enalapril up to the IV Lopressor from the day before. I will go ahead and add on hydralazine 10 mg IV every 6 hours today to see if this helps improve his blood pressure. I will also add a slight scale regular insulin per protocol to make sure we cover his blood sugar since noted outside he is about to start giving TPN for nutrition. Past Medical Family Social History Past Med/Fam/Surg Hx: No changes since H&P Allergies: Allergies Penicillins Allergy (Unknown, Verified 02/27/24 16:36) Sulfa (Sulfonamide Antibiotics) [SULFA] Allergy (Unknown, Verified 02/27/24 16:36) Review of Systems ROS: No change since H&P Vital Signs and I&O's Vital Signs: Vital Signs Temperature 98.0 F Pulse Rate 69 Pulse Rate 69 Pulse Rate 69 Pulse Rate 60 Pulse Rate 60 Pulse Rate 60 Pulse Rate 60 Pulse Rate 60 Pulse Rate 61 Pulse Rate 60 Pulse Rate 60 Pulse Rate 61 Respiratory Rate 23 Respiratory Rate 23 Respiratory Rate 14 Respiratory Rate 23 Respiratory Rate 23 Respiratory Rate 21 Respiratory Rate 20 Respiratory Rate 20 Respiratory Rate 37 Respiratory Rate 32 Respiratory Rate 36 Respiratory Rate 37 Blood Pressure 197/85 Blood Pressure 175/79 Blood Pressure 175/79 Blood Pressure 191/90 Blood Pressure 173/78 Blood Pressure 173/78 Blood Pressure 173/78 Blood Pressure 178/79 Blood Pressure 170/79 Blood Pressure 170/79 Blood Pressure 172/79 Blood Pressure 184/82 Blood Pressure 172/79 O2 Sat by Pulse Oximetry 96 O2 Sat by Pulse Oximetry 97 O2 Sat by Pulse Oximetry 95 O2 Sat by Pulse Oximetry 96 O2 Sat by Pulse Oximetry 96 O2 Sat by Pulse Oximetry 96 O2 Sat by Pulse Oximetry 97 O2 Sat by Pulse Oximetry 96 O2 Sat by Pulse Oximetry 96 O2 Sat by Pulse Oximetry 97 O2 Sat by Pulse Oximetry 96 O2 Sat by Pulse Oximetry 96 O2 Sat by Pulse Oximetry 97 Intake and Output: Intake & Output 02/28/24 02/29/24 03/01/24 03/02/24 11:59 11:59 11:59 11:59 Intake Total 891 / 891 2934 / 2934 3225 / 3225 Output Total 725 / 725 1775 / 1775 2125 / 2125 Balance 166 / 166 1159 / 1159 1100 / 1100 Physical Exam Oriented: Normal, Time, Person and Place Eyes: Normal Ear: Normal Nose: Normal Throat: Normal Respiratory: Normal Cardiovascular: Normal Auscultation: Bowel Sounds: Decreased Tenderness: Diffuse and Other (Soft abdomen with mild distention and tympany, bowel sounds present but hypoactive.) Skin: Normal Musculoskeletal: Normal Psychiatric: Normal Mood Description: Calm Affect: Normal Speech Pattern: Clear and Appropriate Laboratory and Diagnostics 03/01/24 06:52 03/01/24 06:52 Labs: Laboratory WBC 5.7 X10^3/uL (3.6-10.0) 03/01/24 06:52 RBC 4.68 X10^6/uL (4.7-6.0) L 03/01/24 06:52 Hgb 14.1 g/dL (13.5-18.0) 03/01/24 06:52 Hct 41.5 % (42.0-54.0) L 03/01/24 06:52 MCV 88.7 fL (80.0-100.0) 03/01/24 06:52 MCH 30.0 pg (27.0-34.0) 03/01/24 06:52 MCHC 33.9 g/dL (33.0-35.0) 03/01/24 06:52 RDW 14.6 % (11.6-16.5) 03/01/24 06:52 Plt Count 154 X10^3/uL (150.0-450.0) 03/01/24 06:52 MPV 7.9 fL (7.4-11.0) 03/01/24 06:52 Neut % (Auto) 70.7 % (42.0-75.0) 03/01/24 06:52 Lymph % (Auto) 12.2 % (21.0-51.0) L 03/01/24 06:52 [place] % (Auto) 16.3 % (0.0-13.0) H 03/01/24 06:52 Eos % (Auto) 0.5 % (0.9-2.9) L 03/01/24 06:52 Baso % (Auto) 0.3 % (0.2-1.0) 03/01/24 06:52 Neut # (Auto) 4.0 x10^3/uL (2.2-4.8) 03/01/24 06:52 Lymph # (Auto) 0.7 X10^3/uL (1.3-2.9) L 03/01/24 06:52 [place] # (Auto) 0.9 x10^3/uL (0.3-0.8) H 03/01/24 06:52 Eos # (Auto) 0.0 x10^3/uL (0.0-0.2) 03/01/24 06:52 Baso # (Auto) 0.0 X10^3/uL (0.0-0.1) 03/01/24 06:52 Absolute Nucleated RBC 0.1 /100WBC 03/01/24 06:52 Sodium 141 mmol/L (136-145) 03/01/24 06:52 Corrected Sodium 142 mmol/L (136-145) 03/01/24 06:52 Potassium 3.5 mmol/L (3.5-5.1) 03/01/24 06:52 Chloride 107 mmol/L (98-107) 03/01/24 06:52 Carbon Dioxide 24.5 mmol/L (21-32) 03/01/24 06:52 BUN 17 mg/dL (7-18) 03/01/24 06:52 Creatinine 0.66 mg/dL (0.70-1.30) L 03/01/24 06:52 Est GFR (MDRD) Af Amer > 60 (>60) 03/01/24 06:52 Est GFR (MDRD) Non-Af > 60 (>60) 03/01/24 06:52 Glucose 122 mg/dL (65-99) H 03/01/24 06:52 POC Glucose (mg/dL) 96 mg/dL (65-99) 03/01/24 11:37 Calcium 8.0 mg/dL (8.5-10.1) L 03/01/24 06:52 Corrected Calcium 9.1 mg/dL (8.5-10.1) 03/01/24 06:52 Magnesium 2.1 mg/dL (2.0-2.9) 03/01/24 06:52 Total Bilirubin 0.60 mg/dL (0.2-1.0) 03/01/24 06:52 AST 46 Units/L (15-37) H 03/01/24 06:52 ALT 37 Units/L (12-78) 03/01/24 06:52 Alkaline Phosphatase 58 Units/L (46-116) 03/01/24 06:52 Total Protein 6.0 g/dL (6.4-8.2) L 03/01/24 06:52 Albumin 2.6 g/dL (3.4-5.0) L 03/01/24 06:52 Globulin 3.4 g/dL (2.5-4.5) 03/01/24 06:52 Albumin/Globulin Ratio 0.8 Ratio (1.1-2.1) L 03/01/24 06:52 Amylase 76 Units/L (25-115) 02/27/24 18:35 Lipase 38 Units/L (16-77) 02/27/24 18:35 Specimen Type Catherized urine 02/28/24 15:45 Urine Color Yellow (YELLOW) 02/28/24 15:45 Urine Appearance Clear (CLEAR) 02/28/24 15:45 Urine pH 6.0 (5.0 - 8.0) 02/28/24 15:45 Ur Specific [place] 1.020 (1.000-1.030) 02/28/24 15:45 Urine Protein 2+ (NEGATIVE) 02/28/24 15:45 Urine Glucose (UA) Negative (NEGATIVE) 02/28/24 15:45 Urine Ketones 3+ (NEGATIVE) 02/28/24 15:45 Urine Blood 3+ (NEGATIVE) 02/28/24 15:45 Urine Nitrite Negative (NEGATIVE) 02/28/24 15:45 Urine Bilirubin Negative (NEGATIVE) 02/28/24 15:45 Urine Urobilinogen Normal (NORMAL) 02/28/24 15:45 Ur Leukocyte Esterase Negative (NEGATIVE) 02/28/24 15:45 Urine RBC 10-20 /HPF (0-3) A 02/28/24 15:45 Urine WBC 0-2 /HPF (0-5) 02/28/24 15:45 Ur Squamous Epith Cells Rare /HPF (NEGATIVE) 02/28/24 15:45 Amorphous Sediment Trace /HPF (NEGATIVE) 02/28/24 15:45 Urine Bacteria 1+ /HPF (NEGATIVE) 02/28/24 15:45 Hyaline Casts Few /LPF (NEGATIVE) 02/28/24 15:45 Urine Mucus Few /HPF (NEGATIVE) 02/28/24 15:45 Ur Culture Indicated? No/not indicated 02/28/24 15:45 Radiology Reviewed: Yes Plan (1) Small bowel obstruction: Status: Acute Plan: Follow-up KUB later this morning (2) Dehydration: Status: Acute Plan: IV hydration. (3) Hypertension: Status: Chronic Qualifiers: Hypertension type: primary hypertension Qualified Code(s): I10 - Essential (primary) hypertension Plan: Continue IV Lopressor 5 mg IV every 12 hours and enalaprilat 1.25 mg IV every 6 hours this morning for improved blood pressure control. I am going to add an hydralazine 10 mg IV every 6 hours today since patient's blood pressure is not at goal (4) Gastroesophageal reflux disease: Status: Chronic Qualifiers: Esophagitis presence: esophagitis presence not specified Qualified Code(s): K21.9 - Gastro-esophageal reflux disease without esophagitis Plan: Continue IV Protonix (5) Dyslipidemia: Status: Chronic Plan: Hold statins at this time (6) Controlled type 2 diabetes mellitus without complication: Status: Chronic Qualifiers: Diabetes mellitus [facility] insulin use: with exterminator use Qualified Code(s): E11.9 - Type 2 diabetes mellitus without complications; Z79.4 - exterminator (current) use of insulin Plan: Slight scale regular insulin per protocol
[2024-03-01] MEDS: APRESOLINE INJ 20 MG VIAL IVP PRN (13:33)
--- NOTE | 2024-03-01 17:16 | DR.UPDATE ---
H&P Update Prescription drug monitoring program results: PDMP was not reviewed H&P Reviewed: Yes Any changes to H&P?: No Patient was examined?: Yes Vital Signs: Temp Pulse Pulse Resp BP BP Pulse Ox 03/01/24 16:00 69 21 165/75 03/01/24 15:00 98.8 F 69 23 188/83 03/01/24 14:00 70 22 177/79 03/01/24 13:00 69 23 204/84 03/01/24 12:00 98.1 F 66 22 03/01/24 11:00 69 21 177/80 03/01/24 10:00 69 25 H 176/82 03/01/24 15:23 22 03/01/24 08:30 197/85 03/01/24 08:30 69 23 96 03/01/24 08:00 69 23 97 03/01/24 08:00 175/79 03/01/24 07:30 69 14 95 03/01/24 07:30 191/90 03/01/24 07:00 60 23 96 03/01/24 07:00 98.0 F 60 23 96 03/01/24 07:00 173/78 03/01/24 07:00 173/78 96 03/01/24 07:00 173/78 03/01/24 06:30 60 21 97 03/01/24 06:30 178/79 03/01/24 06:00 60 20 96 03/01/24 06:00 170/79 03/01/24 05:31 61 37 H 97 03/01/24 05:31 172/79 03/01/24 05:01 184/82 03/01/24 05:01 60 32 H 96 03/01/24 05:00 60 36 H 96 03/01/24 04:38 182/84 03/01/24 04:38 182/84 03/01/24 04:38 65 26 H 96 03/01/24 04:03 174/82 03/01/24 04:03 75 29 H 96 03/01/24 04:00 180/80 03/01/24 04:00 60 24 96 03/01/24 03:03 170/81 03/01/24 03:03 62 26 H 96 03/01/24 03:00 60 26 H 97 05/09/24 03:00 183/81 03/01/24 02:02 60 19 96 03/01/24 02:02 162/78 03/01/24 02:00 60 21 95 03/01/24 02:00 182/81 03/01/24 01:00 63 23 96 03/01/24 01:00 177/79 03/01/24 00:08 60 23 96 03/01/24 00:08 170/82 03/01/24 00:00 60 21 96 03/01/24 00:00 183/82 02/29/24 23:00 60 18 94 L 02/29/24 23:00 176/82 02/29/24 22:46 60 18 96 02/29/24 22:46 165/77 02/29/24 22:45 60 20 96 02/29/24 22:45 181/83 02/29/24 22:30 60 18 95 02/29/24 22:30 171/77 02/29/24 22:15 63 20 95 03/01/24 07:00 03/01/24 08:11 175/79 03/01/24 06:00 60 20 170/79 96 03/01/24 05:00 61 37 H 172/79 97 03/01/24 04:00 98.1 F 75 29 H 174/82 96 03/01/24 03:00 62 26 H 170/81 96 03/01/24 02:00 60 19 162/78 96 03/01/24 01:00 63 23 177/79 96 03/01/24 00:00 98.3 F 60 23 170/82 96 02/29/24 23:00 60 18 176/82 94 L 02/29/24 22:00 67 16 165/82 95 02/29/24 21:00 69 18 170/81 95 02/29/24 21:00 70 97 02/29/24 21:06 178/82 02/29/24 21:05 27 H 02/29/24 20:00 69 27 H 177/82 96 02/29/24 19:00 98.5 F 70 28 H 163/79 96 02/29/24 19:00 02/29/24 18:00 69 23 164/78 97 02/29/24 17:16 22 02/29/24 17:00 69 20 164/75 97 02/29/24 16:00 98.3 F 69 22 178/81 97 02/29/24 15:00 70 20 173/81 95 02/29/24 14:00 70 20 181/81 95 02/29/24 13:00 98.6 F 69 20 164/77 96 02/29/24 13:12 20 02/29/24 12:00 69 22 153/79 97 02/29/24 10:20 02/29/24 11:00 67 21 167/77 96 02/29/24 10:00 69 21 165/76 96 02/29/24 09:00 69 21 174/79 96 02/29/24 07:00 02/29/24 08:00 69 20 170/77 95 02/29/24 16:46 22 02/29/24 12:42 22 02/29/24 08:22 170/77 02/29/24 07:00 98.7 F 64 21 179/75 95 02/29/24 06:00 64 22 178/75 98 02/29/24 05:00 60 21 171/77 98 02/29/24 04:00 98.5 F 78 22 162/79 98 02/29/24 03:00 60 18 178/74 96 02/29/24 02:00 70 20 169/82 96 02/29/24 01:00 60 20 161/82 97 02/29/24 00:00 60 17 173/76 96 02/28/24 23:42 98.2 F 02/28/24 23:00 71 21 177/78 98 02/28/24 22:27 161/75 02/28/24 22:00 63 17 182/80 97 02/28/24 21:00 67 18 178/80 96 02/28/24 20:25 98.4 F 69 20 174/81 97 02/28/24 20:10 186/83 02/28/24 19:00 02/28/24 19:10 177/75 02/28/24 19:00 69 22 184/79 98 02/28/24 18:00 180/77 02/28/24 18:00 69 20 96 02/28/24 17:02 161/77 02/28/24 17:02 69 20 96 02/28/24 18:02 157/72 02/28/24 17:00 69 17 161/77 96 02/28/24 17:00 186/79 02/28/24 16:00 170/82 02/28/24 16:00 170/82 02/28/24 16:00 99.0 F 69 27 H 170/82 97 02/28/24 15:00 178/81 02/28/24 15:00 69 25 H 95 02/28/24 14:00 176/79 02/28/24 14:00 69 27 H 96 02/28/24 13:02 173/79 02/28/24 13:02 69 32 H 97 02/28/24 13:00 180/85 02/28/24 13:00 69 26 H 97 02/28/24 13:02 173/79 02/28/24 12:00 179/84 02/28/24 12:00 69 22 96 02/28/24 11:06 166/81 02/28/24 11:06 69 27 H 97 02/28/24 11:00 182/84 02/28/24 11:00 69 23 95 02/28/24 10:00 69 28 H 94 L 02/28/24 10:00 163/79 02/28/24 09:05 166/81 02/28/24 09:05 77 28 H 96 02/28/24 09:00 171/79 02/28/24 09:00 74 27 H 95 02/28/24 08:03 148/81 02/28/24 08:03 75 28 H 96 02/28/24 08:00 98.8 F 76 26 H 94 L 02/28/24 08:00 182/79 02/28/24 07:38 02/28/24 07:05 76 18 159/74 95 02/28/24 06:00 81 20 161/77 95 02/28/24 05:00 83 21 147/72 97 02/28/24 04:00 98.5 F 87 18 150/72 94 L 02/28/24 03:00 87 16 145/67 95 02/28/24 02:00 81 24 163/77 96 02/28/24 01:00 81 22 151/75 96 02/27/24 23:46 17 02/28/24 00:00 98.0 F 83 23 148/72 95 02/27/24 23:16 18 02/27/24 23:00 79 25 H 157/75 96 02/27/24 22:05 69 28 H 179/82 97 02/27/24 22:50 02/27/24 22:05 97.4 F L 60 21 170/75 97 02/27/24 21:30 70 18 160/77 98 02/27/24 18:37 18 02/27/24 17:52 20 O2 Del Method FiO2 03/01/24 16:00 03/01/24 15:00 03/01/24 14:00 03/01/24 13:00 03/01/24 12:00 03/01/24 11:00 21 03/01/24 10:00 21 03/01/24 15:23 03/01/24 08:30 03/01/24 08:30 03/01/24 08:00 03/01/24 08:00 03/01/24 07:30 03/01/24 07:30 03/01/24 07:00 03/01/24 07:00 03/01/24 07:00 03/01/24 07:00 03/01/24 07:00 03/01/24 06:30 03/01/24 06:30 03/01/24 06:00 03/01/24 06:00 03/01/24 05:31 03/01/24 05:31 03/01/24 05:01 03/01/24 05:01 03/01/24 05:00 03/01/24 04:38 03/01/24 04:38 03/01/24 04:38 03/01/24 04:03 03/01/24 04:03 03/01/24 04:00 03/01/24 04:00 03/01/24 03:03 03/01/24 03:03 03/01/24 03:00 03/01/24 03:00 03/01/24 02:02 03/01/24 02:02 03/01/24 02:00 03/01/24 02:00 03/01/24 01:00 03/01/24 01:00 03/01/24 00:08 03/01/24 00:08 03/01/24 00:00 03/01/24 00:00 02/29/24 23:00 02/29/24 23:00 02/29/24 22:46 02/29/24 22:46 02/29/24 22:45 02/29/24 22:45 02/29/24 22:30 02/29/24 22:30 02/29/24 22:15 03/01/24 07:00 Room Air 21 03/01/24 08:11 03/01/24 06:00 Room Air 03/01/24 05:00 Room Air 03/01/24 04:00 Room Air 03/01/24 03:00 Room Air 03/01/24 02:00 Room Air 03/01/24 01:00 Room Air 03/01/24 00:00 Room Air 02/29/24 23:00 Room Air 02/29/24 22:00 Room Air 02/29/24 21:00 Room Air 02/29/24 21:00 02/29/24 21:06 02/29/24 21:05 02/29/24 20:00 Room Air 02/29/24 19:00 Room Air 02/29/24 19:00 Room Air 21 02/29/24 18:00 Room Air 02/29/24 17:16 02/29/24 17:00 Room Air 02/29/24 16:00 Room Air 02/29/24 15:00 Room Air 02/29/24 14:00 Room Air 02/29/24 13:00 Room Air 02/29/24 13:12 02/29/24 12:00 Room Air 02/29/24 10:20 Room Air 02/29/24 11:00 Room Air 02/29/24 10:00 Room Air 02/29/24 09:00 Room Air 02/29/24 07:00 Room Air 21 02/29/24 08:00 Room Air 02/29/24 16:46 02/29/24 12:42 02/29/24 08:22 02/29/24 07:00 Room Air 02/29/24 06:00 Room Air 02/29/24 05:00 Room Air 02/29/24 04:00 Room Air 02/29/24 03:00 Room Air 02/29/24 02:00 Room Air 02/29/24 01:00 Room Air 02/29/24 00:00 Room Air 02/28/24 23:42 02/28/24 23:00 Room Air 02/28/24 22:27 02/28/24 22:00 Room Air 02/28/24 21:00 Room Air 02/28/24 20:25 Room Air 02/28/24 20:10 02/28/24 19:00 Room Air 02/28/24 19:10 02/28/24 19:00 Room Air 02/28/24 18:00 02/28/24 18:00 02/28/24 17:02 02/28/24 17:02 02/28/24 18:02 02/28/24 17:00 02/28/24 17:00 02/28/24 16:00 02/28/24 16:00 02/28/24 16:00 02/28/24 15:00 02/28/24 15:00 02/28/24 14:00 02/28/24 14:00 02/28/24 13:02 02/28/24 13:02 02/28/24 13:00 02/28/24 13:00 02/28/24 13:02 02/28/24 12:00 02/28/24 12:00 02/28/24 11:06 02/28/24 11:06 02/28/24 11:00 02/28/24 11:00 02/28/24 10:00 02/28/24 10:00 02/28/24 09:05 02/28/24 09:05 02/28/24 09:00 02/28/24 09:00 02/28/24 08:03 02/28/24 08:03 02/28/24 08:00 02/28/24 08:00 02/28/24 07:38 Room Air 02/28/24 07:05 02/28/24 06:00 Room Air 02/28/24 05:00 Room Air 02/28/24 04:00 Room Air 02/28/24 03:00 Room Air 02/28/24 02:00 Room Air 02/28/24 01:00 Room Air 02/27/24 23:46 02/28/24 00:00 Room Air 02/27/24 23:16 02/27/24 23:00 Room Air 02/27/24 22:05 Room Air 02/27/24 22:50 Room Air 02/27/24 22:05 Room Air 02/27/24 21:30 Room Air 02/27/24 18:37 02/27/24 17:52 Procedures (ALL) - Central Line Placement PCM.CLCO: written consent Time out performed: Yes Patient placed pm monitor/pulse ox: Yes MD prep: mask, gown, gloves, other Centrial line prep: chlorhexidine scrub, sterile drapes applied Local anesthsia used: lidocane 1% Ultrasound used for placement: Yes (r cephalic id'd via u/s and cannulation vis) Central line lumen ininserted: double (5.5fr arrowpicc. ) Post procedure: good blood return, all ports aspirated, flushed,capped, sterile dressing applied Post procedure xray: tip oc catheter in good position (appears prox svc. rad report pending.), no pneumothorax seen Patient tolerated procedure: Yes Complications: none (5 attempts advancing cath d/t kinking and 1 IJ terminatio n.)
--- NOTE | 2024-03-01 17:41 | RAD ---
EXAM:CHEST, 1 VIEWHISTORY:PICC LINE PLACEMENT;COMPARISON:None.TECHNIQUE:Port able chest radiographFINDINGS:Low lung volumes are demonstrated. There is subsegmental linear atelectasis or scarring within the lung bases without organized airspace consolidation. The heart size is normal. A dual lead cardiac pacemaker is in place. There is no radiographic evidence of pneumothorax or free air below the diaphragm. A right-sided PICC line is curled within the proximal SVC. If there is clinical desire to eliminate the curled within the line I would recommend pulling the catheter back about 3 cm which should eliminate the laxity.IMPRESSION:The right-sided PICC line is curled within the proximal SVC. See above for further recommendationsDiminished lung volumes with minimal dependent linear airspace opacities corresponding to atelectasis or scarring. Otherwise no acute infiltratesTHIS IS AN ELECTRONICALLY VERIFIED FINAL REPORT03/01/2024 5:38 PM - Electronically signed by Pedro Mueller MD
[2024-03-01] MEDS: STERILE WATER IRRIGATION IR ONE (21:33)
[2024-03-02 05:47] LABS: EOSINOPHILS # (AUTO) 0.1 x10^3/uL (0.0-0.2); EOSINOPHILS % (AUTO) 0.9 % (0.9-2.9)
[2024-03-02 05:57] LABS: BASOPHILS % (AUTO) 0.4 % (0.2-1.0); HEMATOCRIT 40.1 % (42.0-54.0); HEMOGLOBIN 13.4 g/dL (13.5-18.0); LYMPHOCYTES # (AUTO) 0.7 X10^3/uL (1.3-2.9); LYMPHOCYTES % (AUTO) 12.4 % (21.0-51.0); MEAN CORPUSCULAR HEMOGLOBIN 29.9 pg (27.0-34.0); MEAN CORPUSCULAR HGB CONC 33.5 g/dL (33.0-35.0); MEAN CORPUSCULAR VOLUME 89.5 fL (80.0-100.0); MEAN PLATELET VOLUME 8.9 fL (7.4-11.0); MONOCYTES # (AUTO) 1.3 x10^3/uL (0.3-0.8); MONOCYTES % (AUTO) 21.3 % (0.0-13.0); NEUTROPHILS # (AUTO) 3.9 x10^3/uL (2.2-4.8); PLATELET COUNT 166 X10^3/uL (150.0-450.0); RED BLOOD COUNT 4.48 X10^6/uL (4.7-6.0); RED CELL DISTRIBUTION WIDTH 14.4 % (11.6-16.5)
[2024-03-02 06:10] LABS: ALANINE AMINOTRANSFERASE 42 Units/L (12-78); ALBUMIN 2.5 g/dL (3.4-5.0); ALKALINE PHOSPHATASE 54 Units/L (46-116); ASPARTATE AMINO TRANSFERASE 62 Units/L (15-37); BLOOD UREA NITROGEN 14 mg/dL (7-18); CALCIUM 7.8 mg/dL (8.5-10.1); CARBON DIOXIDE 26.2 mmol/L (21-32); CHLORIDE 106 mmol/L (98-107); COR NA(FOR HYPERGLY) 140 mmol/L (136-145); CREATININE 0.51 mg/dL (0.70-1.30); GLUCOSE 120 mg/dL (65-99); POTASSIUM 3.1 mmol/L (3.5-5.1); SODIUM 140 mmol/L (136-145); eGFR NON BLACK RACES > 60 (>60)
[2024-03-02 06:40] LABS: PLATELET MORPHOLOGY COMMENT NORMAL (NORMAL)
[2024-03-02] MEDS ORDERED: CONSULT PHARMACY - POTASSIUM & MAGNESIUM XX SCH (07:00)
[2024-03-02] MEDS ORDERED: DEXTROSE 10% 1,000 ML IV PRN (07:41)
[2024-03-02] MEDS: BENICAR PO SCH (08:49)
[2024-03-02] MEDS: KLOR-CON PO SCH (08:50)
[2024-03-02] MEDS: PROCARDIA XL 24-hr PO SCH (08:50)
[2024-03-02] MEDS: ZEBETA TAB 5 MG PO SCH (08:51)
[2024-03-02] MEDS: HYDROCHLOROTHIAZIDE 25 MG TAB PO SCH (08:51)
[2024-03-02] MEDS: PHARMACY CONSULT - TPN XX SCH (09:11)
[2024-03-02] MEDS: NS 1,000 ML IV 1,000 ML IV SCH (09:27)
[2024-03-02] MEDS: CLINIMIX 5 %/20 % 1,000 ML with MVI INJ (ADULT) 10 ML, TPN ELECTROLYTES 20 ML IV SCH (09:27)
[2024-03-02] MEDS: DRUG FILTER EXTENSION SET ONE ×2 (09:28→21:23)
[2024-03-02 10:02] LABS: MAGNESIUM 2.1 mg/dL (2.0-2.9)
--- NOTE | 2024-03-02 10:16 | RAD ---
EXAM:KUBHISTORY:DistentionCOMPARISON: r.br.br.br.br.br distention of intestinal segments mostly small bowel. There is a paucity of demonstrable gas in the colon. Visceral outlines are obscured.IMPRESSION:Intestinal dilatation continues as noted, consistent with partial SBO.THIS IS AN ELECTRONICALLY VERIFIED FINAL REPORT03/02/2024 10:13 AM - Electronically signed by Barrington Recinos MD
[2024-03-02] MEDS: NovoLIN R (or HumuLIN R) SUBCUT PRN (12:37)
--- NOTE | 2024-03-02 13:12 | PCM.PROG ---
Progress Note Progress Note for Day of Date of Exam: 03/02/24 Subjective Subjective: The patient has had his NG tube removed. We will stop his IV antihypertensives and started him on his home oral hypertensives this morning. We will follow his blood pressure to see what it does and adjust accordingly. Past Medical Family Social History Past Med/Fam/Surg Hx: No changes since H&P Allergies: Allergies Penicillins Allergy (Unknown, Verified 02/27/24 16:36) Sulfa (Sulfonamide Antibiotics) [SULFA] Allergy (Unknown, Verified 02/27/24 16:36) Review of Systems ROS: No change since H&P Vital Signs and I&O's Vital Signs: Vital Signs Pulse Rate 69 Pulse Rate 69 Pulse Rate 69 Pulse Rate 69 Pulse Rate 69 Pulse Rate 69 Pulse Rate 69 Pulse Rate 69 Pulse Rate 60 Pulse Rate 61 Pulse Rate 60 Pulse Rate 60 Pulse Rate 60 Pulse Rate 61 Respiratory Rate 19 Respiratory Rate 27 Respiratory Rate 28 Respiratory Rate 31 Respiratory Rate 29 Respiratory Rate 19 Respiratory Rate 19 Respiratory Rate 27 Respiratory Rate 26 Respiratory Rate 29 Respiratory Rate 28 Respiratory Rate 23 Respiratory Rate 23 Respiratory Rate 23 Respiratory Rate 22 Respiratory Rate 19 Respiratory Rate 28 Blood Pressure 192/86 Blood Pressure 193/82 Blood Pressure 195/86 Blood Pressure 195/86 Blood Pressure 197/84 Blood Pressure 188/86 Blood Pressure 162/77 Blood Pressure 168/77 Blood Pressure 168/77 Blood Pressure 184/80 Blood Pressure 185/81 Blood Pressure 176/81 Blood Pressure 178/78 O2 Sat by Pulse Oximetry 94 O2 Sat by Pulse Oximetry 95 O2 Sat by Pulse Oximetry 95 O2 Sat by Pulse Oximetry 95 O2 Sat by Pulse Oximetry 95 O2 Sat by Pulse Oximetry 95 O2 Sat by Pulse Oximetry 95 O2 Sat by Pulse Oximetry 97 O2 Sat by Pulse Oximetry 96 O2 Sat by Pulse Oximetry 97 O2 Sat by Pulse Oximetry 97 O2 Sat by Pulse Oximetry 99 O2 Sat by Pulse Oximetry 97 O2 Sat by Pulse Oximetry 97 O2 Sat by Pulse Oximetry 96 Intake and Output: Intake & Output 02/29/24 03/01/24 03/02/24 03/03/24 11:59 11:59 11:59 11:59 Intake Total 2934 / 2934 3225 / 3225 3298 / 3298 Output Total 1775 / 1775 2125 / 2125 1650 / 1650 Balance 1159 / 1159 1100 / 1100 1648 / 1648 Physical Exam Oriented: Normal, Time, Person and Place Eyes: Normal Ear: Normal Nose: Normal Throat: Normal Respiratory: Normal Cardiovascular: Normal Auscultation: Bowel Sounds: Decreased Tenderness: Diffuse and Other (Soft abdomen with mild distention and tympany, bowel sounds present but hypoactive.) Skin: Normal Musculoskeletal: Normal Psychiatric: Normal Mood Description: Calm Affect: Normal Speech Pattern: Clear and Appropriate Laboratory and Diagnostics 03/02/24 04:40 03/02/24 04:40 Labs: Laboratory WBC Cancelled 03/02/24 08:20 RBC Cancelled 03/02/24 08:20 Hgb Cancelled 03/02/24 08:20 Hct Cancelled 03/02/24 08:20 MCV Cancelled 03/02/24 08:20 MCH Cancelled 03/02/24 08:20 MCHC Cancelled 03/02/24 08:20 RDW Cancelled 03/02/24 08:20 Plt Count Cancelled 03/02/24 08:20 Plt Count Comment Adequate (ADEQUATE) 03/02/24 04:40 MPV Cancelled 03/02/24 08:20 Neut % (Auto) Cancelled 03/02/24 08:20 Lymph % (Auto) Cancelled 03/02/24 08:20 [place] % (Auto) Cancelled 03/02/24 08:20 Eos % (Auto) Cancelled 03/02/24 08:20 Baso % (Auto) Cancelled 03/02/24 08:20 Neut # (Auto) Cancelled 03/02/24 08:20 Lymph # (Auto) Cancelled 03/02/24 08:20 [place] # (Auto) Cancelled 03/02/24 08:20 Eos # (Auto) Cancelled 03/02/24 08:20 Baso # (Auto) Cancelled 03/02/24 08:20 Absolute Nucleated RBC Cancelled 03/02/24 08:20 Total Counted 100 03/02/24 04:40 Neutrophils % (Manual) 77 % (39-76) H 03/02/24 04:40 Lymphocytes % (Manual) 11 % (13-43) L 03/02/24 04:40 Monocytes % (Manual) 11 % (4-9) H 03/02/24 04:40 Eosinophils % (Manual) 1 % (0-6) 03/02/24 04:40 Atypical Lymphocytes Few 03/02/24 04:40 Plt Morphology Comment Normal (NORMAL) 03/02/24 04:40 RBC Morphology Normal (NORMAL) 03/02/24 04:40 Sodium 140 mmol/L (136-145) 03/02/24 04:40 Corrected Sodium 140 mmol/L (136-145) 03/02/24 04:40 Potassium 3.1 mmol/L (3.5-5.1) L 03/02/24 04:40 Chloride 106 mmol/L (98-107) 03/02/24 04:40 Carbon Dioxide 26.2 mmol/L (21-32) 03/02/24 04:40 BUN 14 mg/dL (7-18) 03/02/24 04:40 Creatinine 0.51 mg/dL (0.70-1.30) L 03/02/24 04:40 Est GFR (MDRD) Af Amer > 60 (>60) 03/02/24 04:40 Est GFR (MDRD) Non-Af > 60 (>60) 03/02/24 04:40 Glucose 120 mg/dL (65-99) H 03/02/24 04:40 POC Glucose (mg/dL) 245 mg/dL (65-99) H 03/02/24 12:23 Calcium 7.8 mg/dL (8.5-10.1) L 03/02/24 04:40 Corrected Calcium 9.0 mg/dL (8.5-10.1) 03/02/24 04:40 Phosphorus 2.0 mg/dL (2.6-4.7) L 03/02/24 08:20 Magnesium 2.1 mg/dL (2.0-2.9) 03/02/24 08:20 Total Bilirubin 0.70 mg/dL (0.2-1.0) 03/02/24 04:40 AST 62 Units/L (15-37) H 03/02/24 04:40 ALT 42 Units/L (12-78) 03/02/24 04:40 Alkaline Phosphatase 54 Units/L (46-116) 03/02/24 04:40 Total Protein 6.0 g/dL (6.4-8.2) L 03/02/24 04:40 Albumin 2.5 g/dL (3.4-5.0) L 03/02/24 04:40 Globulin 3.5 g/dL (2.5-4.5) 03/02/24 04:40 Albumin/Globulin Ratio 0.7 Ratio (1.1-2.1) L 03/02/24 04:40 Triglycerides 60 mg/dL (0-150) 03/02/24 08:20 Amylase 76 Units/L (25-115) 02/27/24 18:35 Lipase 38 Units/L (16-77) 02/27/24 18:35 Specimen Type Catherized urine 02/28/24 15:45 Urine Color Yellow (YELLOW) 02/28/24 15:45 Urine Appearance Clear (CLEAR) 02/28/24 15:45 Urine pH 6.0 (5.0 - 8.0) 02/28/24 15:45 Ur Specific Reading 1.020 (1.000-1.030) 02/28/24 15:45 Urine Protein 2+ (NEGATIVE) 02/28/24 15:45 Urine Glucose (UA) Negative (NEGATIVE) 02/28/24 15:45 Urine Ketones 3+ (NEGATIVE) 02/28/24 15:45 Urine Blood 3+ (NEGATIVE) 02/28/24 15:45 Urine Nitrite Negative (NEGATIVE) 02/28/24 15:45 Urine Bilirubin Negative (NEGATIVE) 02/28/24 15:45 Urine Urobilinogen Normal (NORMAL) 02/28/24 15:45 Ur Leukocyte Esterase Negative (NEGATIVE) 02/28/24 15:45 Urine RBC 10-20 /HPF (0-3) A 02/28/24 15:45 Urine WBC 0-2 /HPF (0-5) 02/28/24 15:45 Ur Squamous Epith Cells Rare /HPF (NEGATIVE) 02/28/24 15:45 Amorphous Sediment Trace /HPF (NEGATIVE) 02/28/24 15:45 Urine Bacteria 1+ /HPF (NEGATIVE) 02/28/24 15:45 Hyaline Casts Few /LPF (NEGATIVE) 02/28/24 15:45 Urine Mucus Few /HPF (NEGATIVE) 02/28/24 15:45 Ur Culture Indicated? No/not indicated 02/28/24 15:45 Plan (1) Small bowel obstruction: Status: Acute Plan: Follow-up [facility] later this morning (2) Dehydration: Status: Acute Plan: IV hydration. (3) Hypertension: Status: Chronic Qualifiers: Hypertension type: primary hypertension Qualified Code(s): I10 - Essential (primary) hypertension Plan: Resume patient's home antihypertensive since he is no longer with NG tube in place. 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
[2024-03-02] MEDS ORDERED: APRESOLINE INJ 20 MG VIAL IVP PRN (14:17)
[2024-03-02] MEDS ORDERED: LOPRESSOR INJ 5 MG AMP IVP PRN (14:17)
[2024-03-02] MEDS ORDERED: VASOTEC INJ 2.5 MG VIAL IVP PRN (14:17)
--- NOTE | 2024-03-02 14:19 | DR.PROGNOT ---
HOSPITAL PROGRESS NOTE Progress Note for Day of: Progress Note Date: 03/02/24 Chief Complaint Chief Complaint: After removing the NG tube patient started to have abdominal pain and nausea, abdomen got distended. Repeated KUB showed dilated small bowel loops consistent with partial small bowel obstruction. NG tube was reinserted. White count still normal 6.6, hemoglobin 13.4, potassium 3.1, blood sugar is 245. His blood pressure is on the high side and will restart his IV hypertensive medications. Patient is afebrile. Past Medical Family Social History Past Med/Fam/Surg Hx: No changes since H&P Allergies: Allergies Penicillins Allergy (Unknown, Verified 02/27/24 16:36) Sulfa (Sulfonamide Antibiotics) [SULFA] Allergy (Unknown, Verified 02/27/24 16:36) Review Of Systems ROS: No change since H&P Vital Signs Vital Signs: Vital Signs Pulse Rate 69 Pulse Rate 70 Pulse Rate 69 Pulse Rate 69 Pulse Rate 69 Pulse Rate 69 Pulse Rate 69 Pulse Rate 69 Pulse Rate 69 Pulse Rate 69 Pulse Rate 69 Pulse Rate 60 Pulse Rate 61 Pulse Rate 60 Respiratory Rate 26 Respiratory Rate 25 Respiratory Rate 19 Respiratory Rate 23 Respiratory Rate 19 Respiratory Rate 27 Respiratory Rate 28 Respiratory Rate 31 Respiratory Rate 29 Respiratory Rate 19 Respiratory Rate 19 Respiratory Rate 27 Respiratory Rate 26 Respiratory Rate 29 Respiratory Rate 28 Respiratory Rate 23 Respiratory Rate 23 Respiratory Rate 23 Blood Pressure 188/88 Blood Pressure 200/90 Blood Pressure 179/79 Blood Pressure 192/86 Blood Pressure 193/82 Blood Pressure 195/86 Blood Pressure 195/86 Blood Pressure 197/84 Blood Pressure 188/86 Blood Pressure 162/77 Blood Pressure 168/77 Blood Pressure 168/77 Blood Pressure 184/80 O2 Sat by Pulse Oximetry 94 O2 Sat by Pulse Oximetry 95 O2 Sat by Pulse Oximetry 91 O2 Sat by Pulse Oximetry 94 O2 Sat by Pulse Oximetry 95 O2 Sat by Pulse Oximetry 95 O2 Sat by Pulse Oximetry 95 O2 Sat by Pulse Oximetry 95 O2 Sat by Pulse Oximetry 95 O2 Sat by Pulse Oximetry 95 O2 Sat by Pulse Oximetry 97 O2 Sat by Pulse Oximetry 96 O2 Sat by Pulse Oximetry 97 O2 Sat by Pulse Oximetry 97 O2 Sat by Pulse Oximetry 99 Physical Exam Oriented: Normal, Time, Person and Place Eyes: Normal Ear: Normal Nose: Normal Throat: Normal Respiratory: Normal Cardiovascular: Normal GI:Auscultation: Decreased GI:Palpation: Normal GI: Tenderness: Diffuse and Other (Moderate distention with diffuse tenderness, bowel sounds still hypoactive.) Skin: Normal Musculoskeletal: Normal Psychiatric: Normal Mood Description: Calm Affect: Normal Speech Pattern: Clear and Appropriate Laboratory and Diagnostics 03/02/24 04:40 03/02/24 04:40 Labs: Laboratory WBC Cancelled 03/02/24 08:20 RBC Cancelled 03/02/24 08:20 Hgb Cancelled 03/02/24 08:20 Hct Cancelled 03/02/24 08:20 MCV Cancelled 03/02/24 08:20 MCH Cancelled 03/02/24 08:20 MCHC Cancelled 03/02/24 08:20 RDW Cancelled 03/02/24 08:20 Plt Count Cancelled 03/02/24 08:20 Plt Count Comment Adequate (ADEQUATE) 03/02/24 04:40 MPV Cancelled 03/02/24 08:20 Neut % (Auto) Cancelled 03/02/24 08:20 Lymph % (Auto) Cancelled 03/02/24 08:20 [place] % (Auto) Cancelled 03/02/24 08:20 Eos % (Auto) Cancelled 03/02/24 08:20 Baso % (Auto) Cancelled 03/02/24 08:20 Neut # (Auto) Cancelled 03/02/24 08:20 Lymph # (Auto) Cancelled 03/02/24 08:20 [place] # (Auto) Cancelled 03/02/24 08:20 Eos # (Auto) Cancelled 03/02/24 08:20 Baso # (Auto) Cancelled 03/02/24 08:20 Absolute Nucleated RBC Cancelled 03/02/24 08:20 Total Counted 100 03/02/24 04:40 Neutrophils % (Manual) 77 % (39-76) H 03/02/24 04:40 Lymphocytes % (Manual) 11 % (13-43) L 03/02/24 04:40 Monocytes % (Manual) 11 % (4-9) H 03/02/24 04:40 Eosinophils % (Manual) 1 % (0-6) 03/02/24 04:40 Atypical Lymphocytes Few 03/02/24 04:40 Plt Morphology Comment Normal (NORMAL) 03/02/24 04:40 RBC Morphology Normal (NORMAL) 03/02/24 04:40 Sodium 140 mmol/L (136-145) 03/02/24 04:40 Corrected Sodium 140 mmol/L (136-145) 03/02/24 04:40 Potassium 3.1 mmol/L (3.5-5.1) L 03/02/24 04:40 Chloride 106 mmol/L (98-107) 03/02/24 04:40 Carbon Dioxide 26.2 mmol/L (21-32) 03/02/24 04:40 BUN 14 mg/dL (7-18) 03/02/24 04:40 Creatinine 0.51 mg/dL (0.70-1.30) L 03/02/24 04:40 Est GFR (MDRD) Af Amer > 60 (>60) 03/02/24 04:40 Est GFR (MDRD) Non-Af > 60 (>60) 03/02/24 04:40 Glucose 120 mg/dL (65-99) H 03/02/24 04:40 POC Glucose (mg/dL) 245 mg/dL (65-99) H 03/02/24 12:23 Calcium 7.8 mg/dL (8.5-10.1) L 03/02/24 04:40 Corrected Calcium 9.0 mg/dL (8.5-10.1) 03/02/24 04:40 Phosphorus 2.0 mg/dL (2.6-4.7) L 03/02/24 08:20 Magnesium 2.1 mg/dL (2.0-2.9) 03/02/24 08:20 Total Bilirubin 0.70 mg/dL (0.2-1.0) 03/02/24 04:40 AST 62 Units/L (15-37) H 03/02/24 04:40 ALT 42 Units/L (12-78) 03/02/24 04:40 Alkaline Phosphatase 54 Units/L (46-116) 03/02/24 04:40 Total Protein 6.0 g/dL (6.4-8.2) L 03/02/24 04:40 Albumin 2.5 g/dL (3.4-5.0) L 03/02/24 04:40 Globulin 3.5 g/dL (2.5-4.5) 03/02/24 04:40 Albumin/Globulin Ratio 0.7 Ratio (1.1-2.1) L 03/02/24 04:40 Triglycerides 60 mg/dL (0-150) 03/02/24 08:20 Amylase 76 Units/L (25-115) 02/27/24 18:35 Lipase 38 Units/L (16-77) 02/27/24 18:35 Specimen Type Catherized urine 02/28/24 15:45 Urine Color Yellow (YELLOW) 02/28/24 15:45 Urine Appearance Clear (CLEAR) 02/28/24 15:45 Urine pH 6.0 (5.0 - 8.0) 02/28/24 15:45 Ur Specific [place] 1.020 (1.000-1.030) 02/28/24 15:45 Urine Protein 2+ (NEGATIVE) 02/28/24 15:45 Urine Glucose (UA) Negative (NEGATIVE) 02/28/24 15:45 Urine Ketones 3+ (NEGATIVE) 02/28/24 15:45 Urine Blood 3+ (NEGATIVE) 02/28/24 15:45 Urine Nitrite Negative (NEGATIVE) 02/28/24 15:45 Urine Bilirubin Negative (NEGATIVE) 02/28/24 15:45 Urine Urobilinogen Normal (NORMAL) 02/28/24 15:45 Ur Leukocyte Esterase Negative (NEGATIVE) 02/28/24 15:45 Urine RBC 10-20 /HPF (0-3) A 02/28/24 15:45 Urine WBC 0-2 /HPF (0-5) 02/28/24 15:45 Ur Squamous Epith Cells Rare /HPF (NEGATIVE) 02/28/24 15:45 Amorphous Sediment Trace /HPF (NEGATIVE) 02/28/24 15:45 Urine Bacteria 1+ /HPF (NEGATIVE) 02/28/24 15:45 Hyaline Casts Few /LPF (NEGATIVE) 02/28/24 15:45 Urine Mucus Few /HPF (NEGATIVE) 02/28/24 15:45 Ur Culture Indicated? No/not indicated 02/28/24 15:45 Assessment and Plan 1: Partial small bowel obstruction, Will reinsert NG tube and IV fluid. DVT prophylaxis. TPN at 80 cc an hour in addition to the IV fluid. Repeat KUB in a.m.. 2: Abdominal adhesions. Status post multiple abdominal surgeries. 3: Diabetes mellitus. 4: Coronary artery disease 5: Chronic gastroesophageal reflux disease 6: Hypertension, Dr. Berry is managing his diabetes and blood pressure.
--- NOTE | 2024-03-02 14:47 | RAD ---
EXAM:KUBHISTORY:NG TUBE PLACEMENT;COMPARISON:No relevant prior studies available.TECHNIQUE:AP supine projectionFINDINGS:Transesophageal enteric tube tip and side hole marker below the diaphragm.Gas and stool in non-distended colon.Gas in scattered loops of distended small bowel.No gross free air.No abnormal calcifications.No acute osseous abnormality.IMPRESSION:Small-bowel obstruction versus ileus suspectedEnteric tube is in satisfactory positionTHIS IS AN ELECTRONICALLY VERIFIED FINAL REPORT03/02/2024 2:44 PM - Electronically signed by Arpit Storey MD
[2024-03-02] MEDS: DILAUDID INJ IM ONE (14:48)
[2024-03-02] MEDS: APRESOLINE INJ 20 MG VIAL IVP SCH (14:49)
[2024-03-02] MEDS: VASOTEC INJ 2.5 MG VIAL IVP SCH (14:49)
[2024-03-02] MEDS: LOPRESSOR INJ 5 MG AMP IVP SCH (20:29)
[2024-03-03 04:52] LABS: EOSINOPHILS # (AUTO) 0.1 x10^3/uL (0.0-0.2); LYMPHOCYTES # (AUTO) 0.6 X10^3/uL (1.3-2.9); NEUTROPHILS # (AUTO) 4.1 x10^3/uL (2.2-4.8); RED BLOOD COUNT 4.41 X10^6/uL (4.7-6.0)
[2024-03-03 05:04] LABS: ALANINE AMINOTRANSFERASE 37 Units/L (12-78); ALBUMIN 2.3 g/dL (3.4-5.0); ALKALINE PHOSPHATASE 47 Units/L (46-116); ASPARTATE AMINO TRANSFERASE 46 Units/L (15-37); BLOOD UREA NITROGEN 11 mg/dL (7-18); CALCIUM 7.7 mg/dL (8.5-10.1); CARBON DIOXIDE 30.4 mmol/L (21-32); CHLORIDE 102 mmol/L (98-107); COR CA(FOR HYPOALB) 9.1 mg/dL (8.5-10.1); COR NA(FOR HYPERGLY) 142 mmol/L (136-145); CREATININE 0.61 mg/dL (0.70-1.30); GLUCOSE 250 mg/dL (65-99); SODIUM 138 mmol/L (136-145); TOTAL PROTEIN 5.7 g/dL (6.4-8.2); eGFR NON BLACK RACES > 60 (>60)
[2024-03-03 05:11] LABS: BASOPHILS % (AUTO) 0.6 % (0.2-1.0); HEMATOCRIT 39.3 % (42.0-54.0); HEMOGLOBIN 13.1 g/dL (13.5-18.0); LYMPHOCYTES % (AUTO) 9.4 % (21.0-51.0); MEAN CORPUSCULAR HEMOGLOBIN 29.8 pg (27.0-34.0); MEAN CORPUSCULAR HGB CONC 33.4 g/dL (33.0-35.0); MONOCYTES # (AUTO) 1.3 x10^3/uL (0.3-0.8); MONOCYTES % (AUTO) 21.5 % (0.0-13.0); NEUTROPHILS % (AUTO) 67.5 % (42.0-75.0); PLATELET COUNT 160 X10^3/uL (150.0-450.0); RED CELL DISTRIBUTION WIDTH 14.3 % (11.6-16.5); WHITE BLOOD COUNT 6.1 X10^3/uL (3.6-10.0)
[2024-03-03 05:12] LABS: POTASSIUM 2.9 mmol/L (3.5-5.1)
[2024-03-03 05:34] LABS: PREALBUMIN 13.2 mg/dL (18-35.7)
[2024-03-03 05:36] LABS: BAND NEUTROPHILS % 2 % (0-10); PLATELET MORPHOLOGY COMMENT NORMAL (NORMAL)
[2024-03-03] MEDS ORDERED: CONSULT PHARMACY - POTASSIUM & MAGNESIUM XX SCH (06:00)
--- NOTE | 2024-03-03 07:08 | RAD ---
EXAM:KUBHISTORY:SBOCOMPARISON: 11:23 a.m. 03/02/2024FINDINGS:There is persistent intestinal distention, with dilated segments of small bowel. Some colon gas is present as well. Visceral margins are obscured. No ascites or mass formation is evident.IMPRESSION:Persistent small bowel distention although there is increasing colon gas now noted. The findings are consistent with partial SBO.THIS IS AN ELECTRONICALLY VERIFIED FINAL REPORT03/03/2024 7:04 AM - Electronically signed by Barrington Recinos MD
[2024-03-03] MEDS: DILAUDID INJ IVP PRN (08:24)
[2024-03-03] MEDS ORDERED: CLINIMIX 5 %/20 % 1,000 ML with MVI INJ (ADULT) 10 ML, TPN ELECTROLYTES 20 ML, POTASSIU... IV SCH (09:00)
[2024-03-03] MEDS ORDERED: K-RIDER 10 MEQ/100 ML WATER 10 MEQ/100 ML BAG IV SCH (09:00)
[2024-03-03] MEDS: CLINIMIX 5 %/20 % 1,000 ML with MVI INJ (ADULT) 10 ML, TPN ELECTROLYTES 20 ML, POTASSIU... IV SCH (09:21)
[2024-03-03] MEDS: DRUG FILTER EXTENSION SET ONE ×2 (09:26→23:54)
[2024-03-03] MEDS: VASOTEC INJ 2.5 MG VIAL IVP ONE (17:26)
[2024-03-04 05:27] LABS: BASOPHILS % (AUTO) 0.6 % (0.2-1.0); EOSINOPHILS # (AUTO) 0.1 x10^3/uL (0.0-0.2); EOSINOPHILS % (AUTO) 0.7 % (0.9-2.9); HEMATOCRIT 38.7 % (42.0-54.0); HEMOGLOBIN 13.1 g/dL (13.5-18.0); LYMPHOCYTES # (AUTO) 0.7 X10^3/uL (1.3-2.9); LYMPHOCYTES % (AUTO) 9.7 % (21.0-51.0); MEAN CORPUSCULAR HGB CONC 33.9 g/dL (33.0-35.0); MEAN CORPUSCULAR VOLUME 88.4 fL (80.0-100.0); MEAN PLATELET VOLUME 9.1 fL (7.4-11.0); MONOCYTES # (AUTO) 1.4 x10^3/uL (0.3-0.8); MONOCYTES % (AUTO) 18.5 % (0.0-13.0); NEUTROPHILS # (AUTO) 5.3 x10^3/uL (2.2-4.8); NEUTROPHILS % (AUTO) 70.5 % (42.0-75.0); PLATELET COUNT 172 X10^3/uL (150.0-450.0); RED BLOOD COUNT 4.38 X10^6/uL (4.7-6.0); RED CELL DISTRIBUTION WIDTH 14.6 % (11.6-16.5); WHITE BLOOD COUNT 7.6 X10^3/uL (3.6-10.0)
[2024-03-04 05:40] LABS: ALANINE AMINOTRANSFERASE 37 Units/L (12-78); ALBUMIN 2.3 g/dL (3.4-5.0); ALKALINE PHOSPHATASE 50 Units/L (46-116); ASPARTATE AMINO TRANSFERASE 30 Units/L (15-37); BLOOD UREA NITROGEN 15 mg/dL (7-18); CARBON DIOXIDE 31.1 mmol/L (21-32); CHLORIDE 103 mmol/L (98-107); COR CA(FOR HYPOALB) 9.4 mg/dL (8.5-10.1); COR NA(FOR HYPERGLY) 145 mmol/L (136-145); CREATININE 0.64 mg/dL (0.70-1.30); GLUCOSE 249 mg/dL (65-99); MAGNESIUM 2.2 mg/dL (2.0-2.9); POTASSIUM 3.1 mmol/L (3.5-5.1); SODIUM 141 mmol/L (136-145); TOTAL PROTEIN 5.8 g/dL (6.4-8.2); eGFR NON BLACK RACES > 60 (>60)
[2024-03-04 06:05] LABS: BAND NEUTROPHILS % 2 % (0-10); PLATELET MORPHOLOGY COMMENT NORMAL (NORMAL)
[2024-03-04] MEDS ORDERED: CONSULT PHARMACY - POTASSIUM & MAGNESIUM XX SCH (07:00)
[2024-03-04] MEDS: K-RIDER 10 MEQ/100 ML WATER 10 MEQ/100 ML BAG IV SCH (08:53)
[2024-03-04 10:06] VITALS: BMI 27.6
[2024-03-04] MEDS: NS 1/2 1,000 ML IV 1,000 ML IV SCH (10:11)
[2024-03-04] MEDS: NS 1/2 1,000 ML IV 1,000 ML IV ONE (12:48)
[2024-03-04] MEDS: CLINIMIX 5 %/20 % 1,000 ML with MVI INJ (ADULT) 10 ML, TPN ELECTROLYTES 20 ML, POTASSIU... IV SCH (14:31)
[2024-03-04 15:04] LABS: BILIRUBIN,URINE 1+ (NEGATIVE); BLOOD/HEMOGLOBIN,URINE 5+ (NEGATIVE); GLUCOSE, URINE 4+ (NEGATIVE); KETONES,URINE 1+ (NEGATIVE); LEUKOCYTE ESTERASE ,URINE 2+ (NEGATIVE); NITRITES,URINE POSITIVE (NEGATIVE); PROTEIN,URINE 4+ (NEGATIVE); UROBILINOGEN,URINE NORMAL (NORMAL)
[2024-03-04 15:18] LABS: APPEARANCE,URINE TURBID (CLEAR); COLOR,URINE RED (YELLOW)
[2024-03-04 15:19] LABS: BACTERIA,URINE 4+ /HPF (NEGATIVE); RBC,URINE TNTC /HPF (0-3); SQUAMOUS EPITHELIAL CELL,UR NEGATIVE /HPF (NEGATIVE)
[2024-03-04] MEDS: DRUG FILTER EXTENSION SET ONE (15:45)
--- NOTE | 2024-03-04 15:55 | RAD ---
EXAM: KUB HISTORY: SBO COMPARISON: 03/03/2024 FINDINGS: There is no change in extent or distribution of previously described gaseous distention of small bow el. NG tube terminates in the proximal stomach. IMPRESSION: No change. Findings remain consistent with partial SBO. THIS IS AN ELECTRONICALLY VERIFIED FINAL REPORT 03/04/2024 3:52 PM - Electronically signed by Barrington Recinos MD
[2024-03-05] MEDS: DRUG FILTER EXTENSION SET ONE ×2 (04:50→15:53)
[2024-03-05 05:34] LABS: BASOPHILS % (AUTO) 0.4 % (0.2-1.0); EOSINOPHILS # (AUTO) 0.1 x10^3/uL (0.0-0.2); EOSINOPHILS % (AUTO) 1.6 % (0.9-2.9); HEMOGLOBIN 13.3 g/dL (13.5-18.0); LYMPHOCYTES # (AUTO) 0.7 X10^3/uL (1.3-2.9); LYMPHOCYTES % (AUTO) 8.1 % (21.0-51.0); MEAN CORPUSCULAR HEMOGLOBIN 30.3 pg (27.0-34.0); MEAN CORPUSCULAR HGB CONC 34.2 g/dL (33.0-35.0); MEAN CORPUSCULAR VOLUME 88.5 fL (80.0-100.0); MEAN PLATELET VOLUME 9.1 fL (7.4-11.0); MONOCYTES # (AUTO) 1.6 x10^3/uL (0.3-0.8); MONOCYTES % (AUTO) 18.2 % (0.0-13.0); NEUTROPHILS # (AUTO) 6.2 x10^3/uL (2.2-4.8); NEUTROPHILS % (AUTO) 71.7 % (42.0-75.0); PLATELET COUNT 186 X10^3/uL (150.0-450.0); RED CELL DISTRIBUTION WIDTH 14.6 % (11.6-16.5); WHITE BLOOD COUNT 8.6 X10^3/uL (3.6-10.0)
[2024-03-05 05:45] LABS: ALANINE AMINOTRANSFERASE 34 Units/L (12-78); ALBUMIN 2.3 g/dL (3.4-5.0); ALKALINE PHOSPHATASE 53 Units/L (46-116); ASPARTATE AMINO TRANSFERASE 27 Units/L (15-37); BLOOD UREA NITROGEN 19 mg/dL (7-18); CALCIUM 8.2 mg/dL (8.5-10.1); CARBON DIOXIDE 28.9 mmol/L (21-32); CHLORIDE 105 mmol/L (98-107); COR CA(FOR HYPOALB) 9.6 mg/dL (8.5-10.1); COR NA(FOR HYPERGLY) 144 mmol/L (136-145); CREATININE 0.63 mg/dL (0.70-1.30); GLUCOSE 221 mg/dL (65-99); POTASSIUM 3.8 mmol/L (3.5-5.1); SODIUM 141 mmol/L (136-145); TOTAL PROTEIN 6.1 g/dL (6.4-8.2); eGFR NON BLACK RACES > 60 (>60)
[2024-03-05 05:54] LABS: MAGNESIUM 2.2 mg/dL (2.0-2.9); PHOSPHORUS 1.5 mg/dL (2.6-4.7)
[2024-03-05 06:12] LABS: BAND NEUTROPHILS % 2 % (0-10); PLATELET MORPHOLOGY COMMENT NORMAL (NORMAL)
--- NOTE | 2024-03-05 06:56 | RAD ---
EXAM: KUB HISTORY: Partial small bowel obstruction COMPARISON: 03/04/2024 FINDINGS: Nasogastric tube again noted to be in the proximal stomach. Increasing dilatation of the small bow el loops in the left upper quadrant when compared with prior examination. Gas is present distally wi thin the colon. Findings consistent with a partial small bowel obstruction. No abnormal masses or a bnormal calcifications identified. Regional skeleton is intact. IMPRESSION: Findings still consistent with a partial small bowel obstruction with increasing small bowel dilatat ion when compared with prior examination. THIS IS AN ELECTRONICALLY VERIFIED FINAL REPORT 03/05/2024 6:53 AM - Electronically signed by Gurjit Miller MD
[2024-03-05] MEDS ORDERED: CONSULT PHARMACY - POTASSIUM & MAGNESIUM XX SCH (07:00)
[2024-03-05] MEDS ORDERED: K-RIDER 10 MEQ/100 ML WATER 10 MEQ/100 ML BAG IV SCH (09:00)
--- NOTE | 2024-03-05 09:53 | RAD ---
EXAM: CHEST, 1 VIEW HISTORY: SOB; COMPARISON: Prior study or studies were utilized for comparison during interpretation with the most relevant anthony ed 03/01/2024 TECHNIQUE: CHEST, 1 VIEW FINDINGS: Chest: Lines and tubes: Left-sided pacemaker generator with lead or leads in satisfactory position. Transes ophageal enteric tube terminates below the diaphragm right upper extremity PICC is looped in the SVC Mediastinum: Cardiac and mediastinal shadow is within normal limits for size and contour. Pulmonary vessels: There is pulmonary vascular congestion. Lung leach: Patchy opacities are seen Pleura: There is blunting of the right costophrenic angle. No pneumothorax. Bones and soft tissues: No acute osseous or soft tissue abnormality. IMPRESSION: 1. PICC is looped in the SVC 2. Enteric tube and pacemaker leads appear satisfactorily positioned. 3. Heart failure suggested 4. Moderate right pleural effusion has developed since 03/01/2024 THIS IS AN ELECTRONICALLY VERIFIED FINAL REPORT 03/05/2024 9:46 AM - Electronically signed by Arpit Storey MD
--- NOTE | 2024-03-05 10:10 | EKG ---
Test Reason : SOB Blood Pressure : */* mmHG Vent. Rate : 77 BPM Atrial Rate : 77 BPM P-R Int : 130 ms QRS Dur : 74 ms QT Int : 382 ms P-R-T Axes : 58 5 -11 degrees QTc Int : 432 ms Normal sinus rhythm with sinus arrhythmia Normal ECG When compared with ECG of 07-DEC-2022 17:13, Nonspecific T wave abnormality now evident in Inferior leads Confirmed by Augusto Jaramillo MD ([id number]) on 03/05/2024 1:59:25 PM Referred By: Confirmed By: Augusto Jaramillo MD
--- NOTE | 2024-03-05 10:40 | PCM.PROG ---
Progress Note Progress Note for Day of Date of Exam: 03/05/24 Subjective Subjective: The patient is sitting in the chair in his room comfortable at this point. He still has an NG tube in place. KUB still shows small bowel obstruction. His blood pressure is still elevated with a systolic in the 160s. He currently is receiving IV enalapril, Lopressor hydralazine and is on cutaneous clonidine 0.3 mg. We are going to add IV Cardene this morning for improved blood pressure control. I spoke with general surgeon Dr. Gonzalez and he wishes to proceed to surgery today or either tomorrow because of the unresolved small bowel obstruction. I think it is a good idea to go ahead and get a stat echocardiogram as well as EKG to make sure that he does not have any significant heart trouble prior to surgery. I will have Dr. Jaramillo take a look at the echocardiogram and EKG to make sure that he has cardiac clearance before surgery. BNP was done this morning and is normal however the patient's chest x-ray shows a moderate right- sided pleural effusion. I will have the nurses give the patient Lasix 40 mg IV x 1 later today to see if it helps decrease the size of the pleural effusion. Past Medical Family Social History Past Med/Fam/Surg Hx: No changes since H&P Allergies: Allergies Penicillins Allergy (Unknown, Verified 02/27/24 16:36) Sulfa (Sulfonamide Antibiotics) [SULFA] Allergy (Unknown, Verified 02/27/24 16:36) Review of Systems ROS: No change since H&P Vital Signs and I&O's Vital Signs: Vital Signs Temperature 98.7 F Temperature 98.9 F Pulse Rate 76 Pulse Rate 79 Pulse Rate 75 Pulse Rate 73 Pulse Rate 74 Pulse Rate 86 Pulse Rate 94 Pulse Rate 83 Respiratory Rate 24 Respiratory Rate 24 Respiratory Rate 23 Respiratory Rate 22 Respiratory Rate 24 Respiratory Rate 28 Respiratory Rate 28 Respiratory Rate 24 Blood Pressure 176/81 Blood Pressure 171/76 Blood Pressure 181/80 Blood Pressure 164/72 Blood Pressure 168/74 Blood Pressure 176/79 Blood Pressure 180/78 Blood Pressure 169/74 Blood Pressure 170/75 O2 Sat by Pulse Oximetry 95 O2 Sat by Pulse Oximetry 96 O2 Sat by Pulse Oximetry 96 O2 Sat by Pulse Oximetry 96 O2 Sat by Pulse Oximetry 97 O2 Sat by Pulse Oximetry 97 O2 Sat by Pulse Oximetry 96 O2 Sat by Pulse Oximetry 95 Intake and Output: Intake & Output 03/02/24 03/03/24 03/04/24 03/05/24 11:59 11:59 11:59 11:59 Intake Total 3298 / 3298 2816 / 2816 3037 / 3037 3128 / 3128 Output Total 1650 / 1650 2200 / 2200 2024 / 2024 1135 / 1135 Balance 1648 / 1648 616 / 616 1012 / 1012 1992 Physical Exam Oriented: Normal, Time, Person and Place Eyes: Normal Ear: Normal Nose: Normal Throat: Normal Respiratory: Normal Cardiovascular: Normal Auscultation: Bowel Sounds: Decreased Tenderness: Diffuse and Other (Moderate distention with diffuse tenderness, bowel sounds still hypoactive.) Skin: Normal Musculoskeletal: Normal Psychiatric: Normal Mood Description: Calm Affect: Normal Speech Pattern: Clear and Appropriate Laboratory and Diagnostics 03/05/24 04:13 03/05/24 04:13 Labs: 03/04/24 14:35 Urine,Clean Catch Urine Culture - Preliminary Laboratory WBC 8.6 X10^3/uL (3.6-10.0) 03/05/24 04:13 RBC 4.40 X10^6/uL (4.7-6.0) L 03/05/24 04:13 Hgb 13.3 g/dL (13.5-18.0) L 03/05/24 04:13 Hct 39.0 % (42.0-54.0) L 03/05/24 04:13 MCV 88.5 fL (80.0-100.0) 03/05/24 04:13 MCH 30.3 pg (27.0-34.0) 03/05/24 04:13 MCHC 34.2 g/dL (33.0-35.0) 03/05/24 04:13 RDW 14.6 % (11.6-16.5) 03/05/24 04:13 Plt Count 186 X10^3/uL (150.0-450.0) 03/05/24 04:13 Plt Count Comment Adequate (ADEQUATE) 03/05/24 04:13 MPV 9.1 fL (7.4-11.0) 03/05/24 04:13 Neut % (Auto) 71.7 % (42.0-75.0) 03/05/24 04:13 Lymph % (Auto) 8.1 % (21.0-51.0) L 03/05/24 04:13 [place] % (Auto) 18.2 % (0.0-13.0) H 03/05/24 04:13 Eos % (Auto) 1.6 % (0.9-2.9) 03/05/24 04:13 Baso % (Auto) 0.4 % (0.2-1.0) 03/05/24 04:13 Neut # (Auto) 6.2 x10^3/uL (2.2-4.8) H 03/05/24 04:13 Lymph # (Auto) 0.7 X10^3/uL (1.3-2.9) L 03/05/24 04:13 [place] # (Auto) 1.6 x10^3/uL (0.3-0.8) H 03/05/24 04:13 Eos # (Auto) 0.1 x10^3/uL (0.0-0.2) 03/05/24 04:13 Baso # (Auto) 0.0 X10^3/uL (0.0-0.1) 03/05/24 04:13 Absolute Nucleated RBC 0.1 /100WBC 03/05/24 04:13 Total Counted 100 03/05/24 04:13 Neutrophils % (Manual) 69 % (39-76) 03/05/24 04:13 Band Neutrophils % 2 % (0-10) 03/05/24 04:13 Lymphocytes % (Manual) 13 % (13-43) 03/05/24 04:13 Monocytes % (Manual) 13 % (4-9) H 03/05/24 04:13 Eosinophils % (Manual) 3 % (0-6) 03/05/24 04:13 Atypical Lymphocytes Few 03/02/24 04:40 Plt Morphology Comment Normal (NORMAL) 03/05/24 04:13 RBC Morphology Normal (NORMAL) 03/05/24 04:13 Sodium 141 mmol/L (136-145) 03/05/24 04:13 Corrected Sodium 144 mmol/L (136-145) 03/05/24 04:13 Potassium 3.8 mmol/L (3.5-5.1) 03/05/24 04:13 Chloride 105 mmol/L (98-107) 03/05/24 04:13 Carbon Dioxide 28.9 mmol/L (21-32) 03/05/24 04:13 BUN 19 mg/dL (7-18) H 03/05/24 04:13 Creatinine 0.63 mg/dL (0.70-1.30) L 03/05/24 04:13 Est GFR (MDRD) Af Amer > 60 (>60) 03/05/24 04:13 Est GFR (MDRD) Non-Af > 60 (>60) 03/05/24 04:13 Glucose 221 mg/dL (65-99) H 03/05/24 04:13 POC Glucose (mg/dL) 244 mg/dL (65-99) H 03/05/24 07:37 Calcium 8.2 mg/dL (8.5-10.1) L 03/05/24 04:13 Corrected Calcium 9.6 mg/dL (8.5-10.1) 03/05/24 04:13 Phosphorus 1.5 mg/dL (2.6-4.7) L 03/05/24 04:13 Magnesium 2.2 mg/dL (2.0-2.9) 03/05/24 04:13 Total Bilirubin 0.30 mg/dL (0.2-1.0) 03/05/24 04:13 AST 27 Units/L (15-37) 03/05/24 04:13 ALT 34 Units/L (12-78) 03/05/24 04:13 Alkaline Phosphatase 53 Units/L (46-116) 03/05/24 04:13 B-Natriuretic Peptide 39.6 pg/mL (0-79) 03/05/24 04:13 Total Protein 6.1 g/dL (6.4-8.2) L 03/05/24 04:13 Albumin 2.3 g/dL (3.4-5.0) L 03/05/24 04:13 Globulin 3.8 g/dL (2.5-4.5) 03/05/24 04:13 Albumin/Globulin Ratio 0.6 Ratio (1.1-2.1) L 03/05/24 04:13 Prealbumin 13.2 mg/dL (18-35.7) L 03/03/24 04:20 Triglycerides 44 mg/dL (0-150) 03/05/24 04:13 Amylase 76 Units/L (25-115) 02/27/24 18:35 Lipase 38 Units/L (16-77) 02/27/24 18:35 Specimen Type Catherized urine 03/04/24 14:35 Urine Color Red (YELLOW) 03/04/24 14:35 Urine Appearance Turbid (CLEAR) 03/04/24 14:35 Urine pH 7.0 (5.0 - 8.0) 03/04/24 14:35 Ur Specific [place] 1.015 (1.000-1.030) 03/04/24 14:35 Urine Protein 4+ (NEGATIVE) 03/04/24 14:35 Urine Glucose (UA) 4+ (NEGATIVE) 03/04/24 14:35 Urine Ketones 1+ (NEGATIVE) 03/04/24 14:35 Urine Blood 5+ (NEGATIVE) 03/04/24 14:35 Urine Nitrite Positive (NEGATIVE) 03/04/24 14:35 Urine Bilirubin 1+ (NEGATIVE) 03/04/24 14:35 Urine Urobilinogen Normal (NORMAL) 03/04/24 14:35 Ur Leukocyte Esterase 2+ (NEGATIVE) 03/04/24 14:35 Urine RBC Tntc /HPF (0-3) A 03/04/24 14:35 Urine WBC 0-2 /HPF (0-5) 03/04/24 14:35 Ur Squamous Epith Cells Negative /HPF (NEGATIVE) 03/04/24 14:35 Amorphous Sediment Trace /HPF (NEGATIVE) 02/28/24 15:45 Urine Bacteria 4+ /HPF (NEGATIVE) 03/04/24 14:35 Hyaline Casts Few /LPF (NEGATIVE) 02/28/24 15:45 Urine Mucus Few /HPF (NEGATIVE) 02/28/24 15:45 Ur Culture Indicated? Yes/culture set up 03/04/24 14:35 Plan (1) Small bowel obstruction: Status: Acute Plan: I spoke with general surgeon, Dr. Gonzalez today and he is planning on taking the patient to surgery since the small bowel obstruction is not resolving on its own. The patient will need cardiac clearance, so we will go ahead and order a stat echocardiogram today, as well as EKG. We will have Dr. Jaramillo, cardiology review at to make sure the patient is stable from a cardiac standpoint prior to surgery. (2) Hypertension: Status: Chronic Qualifiers: Hypertension type: primary hypertension Qualified Code(s): I10 - Essential (primary) hypertension Plan: Continue transcutaneous clonidine 0.3 mg weekly, IV enalaprilat, IV Lopressor and IV hydralazine. We are going to add IV Cardene this morning per protocol for improved blood pressure control today. 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 (7) Dehydration: Status: Resolved
[2024-03-05] MEDS: CARDENE IV PREMIX* 40 MG/200 ML 40 MG/200 ML PIGGYBACK IV PRN (10:58)
[2024-03-05] MEDS: CLINIMIX 5 %/20 % 1,000 ML with MVI INJ (ADULT) 10 ML, TPN ELECTROLYTES 20 ML, POTASSIU... IV SCH (12:03)
[2024-03-05] MEDS: LEVAQUIN PREMIX IV 500 MG 500 MG/100 ML BAG IV SCH (12:33)
--- NOTE | 2024-03-05 12:51 | DR.CONSULT ---
CONSULT Consultation for Day of: Date: 03/05/24 Chief Complaint Chief Complaint: preop clearance for SBO Allergies Allergies Allergy/AdvReac Type Severity Reaction Status Date / Time Penicillins Allergy Unknown Verified 02/27/24 16:36 Sulfa (Sulfonamide Allergy Unknown Verified 02/27/24 16:36 Antibiotics) [SULFA] History of Present Illness History of Present Illness: I preformed a heart cath in 2019 on Mr Pittman- cath showed 30% LAD and small 75% OM- treated medically and has done well- active w/o sign cv sx- at cath: no BILL but on 5 bp meds- needs surgery for sbo- echo: lvh/good lV- since unable to take po, on clonidine patch/iv ccb/iv bb/iv tuan/iv hydralazine and bp >170 pulse > 90- no cv sx now Past Medical History Past Medical History: Anxiety, Coronary Artery Disease, Depression, Diabetes and GERD Past Surgical History Surgical History: Bowel Resection, Cholecystectomy and Tonsillectomy Family History Family Medical History: Diabetes Mellitus and Hypertension Social History Does patient currently use any type of tobacco product: No Have you used tobacco products in the last 12 months: No Type of Tobacco Use: None Does any household member use tobacco: No Alcohol Use: None Drug Use: None Medications Home Medications: Penicillins Allergy (Unknown, Verified 02/27/24 16:36) Sulfa (Sulfonamide Antibiotics) [SULFA] Allergy (Unknown, Verified 02/27/24 16:36) CONTINUE taking the following medications bupropion HCl 300 mg 24 hr tablet, extended release 300 mg PO QDAY 02/27/24 [History] clonidine 0.3 mg/24 hr weekly transdermal patch 1 patch QWEEK 02/27/24 [History] doxazosin 2 mg tablet 2 mg PO QDAY 02/27/24 [History] folic acid 1 mg tablet 1 mg PO QDAY 02/27/24 [History] insulin glargine 100 unit/mL (3 mL) subcutaneous pen (Lantus Solostar U-100 Insulin) 30 unit subcut BID 02/27/24 [History] metoclopramide HCl 10 mg tablet 10 mg PO QPM 02/27/24 [History] nebivolol 20 mg tablet 20 mg PO QDAY 02/27/24 [History] nifedipine 60 mg tablet,extended release 60 mg PO BID 02/27/24 [History] olmesartan 40 mg-hydrochlorothiazide 25 mg tablet 1 tab PO QDAY 02/27/24 [History] omeprazole 40 mg capsule,delayed release 40 mg PO QDAY 02/27/24 [History] ropinirole 1 mg tablet 1 - 2 mg PO QPM 02/27/24 [History] sucralfate 1 gram tablet 0.5 g PO QID 02/27/24 [History] temazepam 30 mg capsule 30 mg PO QPM 02/27/24 [History] tramadol 50 mg tablet 50 mg PO QDAY 02/27/24 [History] Physical Exam Vital Signs: Vital Signs Temperature 98.3 F Temperature 98.7 F Temperature 98.9 F Pulse Rate 100 Pulse Rate 95 Pulse Rate 80 Pulse Rate 72 Pulse Rate 76 Pulse Rate 79 Pulse Rate 75 Pulse Rate 73 Pulse Rate 74 Pulse Rate 86 Respiratory Rate 24 Respiratory Rate 25 Respiratory Rate 24 Respiratory Rate 22 Respiratory Rate 24 Respiratory Rate 24 Respiratory Rate 23 Respiratory Rate 22 Respiratory Rate 24 Respiratory Rate 28 Blood Pressure 171/74 Blood Pressure 177/80 Blood Pressure 176/82 Blood Pressure 179/82 Blood Pressure 176/81 Blood Pressure 171/76 Blood Pressure 181/80 Blood Pressure 164/72 Blood Pressure 168/74 Blood Pressure 176/79 Blood Pressure 180/78 O2 Sat by Pulse Oximetry 94 O2 Sat by Pulse Oximetry 96 O2 Sat by Pulse Oximetry 95 O2 Sat by Pulse Oximetry 96 O2 Sat by Pulse Oximetry 95 O2 Sat by Pulse Oximetry 96 O2 Sat by Pulse Oximetry 96 O2 Sat by Pulse Oximetry 96 O2 Sat by Pulse Oximetry 97 O2 Sat by Pulse Oximetry 97 alert ox3 ng tube no jvd clear lungs hr 90s distended abdomen minimal edema labs:wbc 8.6 hct 39 bun/cr 19/0.7 bnp 39 alb 2.2 cxr: pleural effusion, pulm congestion ekg: normal Plan (1) Small bowel obstruction: Status: Acute Narrative Support Text: acceptable cv risk for surgery but needs better bp/hr control as well as some diuresis Plan: push ccb. push bb- diuresis- future: push hydralazine/add nitro paste/- goal bp < 140, pulse < 75 for surgery (2) Hypertension: Status: Chronic Qualifiers: Hypertension type: primary hypertension Qualified Code(s): I10 - Essential (primary) hypertension (3) Dyslipidemia: Status: Chronic (4) Controlled type 2 diabetes mellitus without complication: Status: Chronic Qualifiers: Diabetes mellitus barrel raiser helper insulin use: with barrel raiser helper use Qualified Code(s): E11.9 - Type 2 diabetes mellitus without complications; Z79.4 - van loader (current) use of insulin (5) Pleural effusion on right: Status: Acute
[2024-03-05] MEDS: LASIX IVP ONE (13:24)
[2024-03-05] MEDS: VALIUM INJ IVP PRN (13:27)
[2024-03-05] MEDS ORDERED: LOPRESSOR INJ 5 MG AMP IVP SCH (14:00)
[2024-03-05] MEDS: LOPRESSOR INJ 5 MG AMP IVP SCH (14:16)
[2024-03-05] MEDS: APRESOLINE INJ 20 MG VIAL IVP SCH (14:39)
[2024-03-05] MEDS ORDERED: VASOTEC INJ 2.5 MG VIAL ONE (21:48)
[2024-03-05] MEDS ORDERED: CARDENE IV PREMIX* 40 MG/200 ML 40 MG/200 ML PIGGYBACK IV ONE (22:17)
[2024-03-06] MEDS: HIBICLENS WASH EXT ONE (03:44)
[2024-03-06 04:52] LABS: BASOPHILS # (AUTO) 0.1 X10^3/uL (0.0-0.1); HEMOGLOBIN 12.6 g/dL (13.5-18.0); LYMPHOCYTES # (AUTO) 0.3 X10^3/uL (1.3-2.9); LYMPHOCYTES % (AUTO) 3.1 % (21.0-51.0)
[2024-03-06 04:55] LABS: BLOOD UREA NITROGEN 26 mg/dL (7-18); CALCIUM 8.5 mg/dL (8.5-10.1); CARBON DIOXIDE 29.6 mmol/L (21-32); CHLORIDE 106 mmol/L (98-107); COR NA(FOR HYPERGLY) 148 mmol/L (136-145); CREATININE 0.84 mg/dL (0.70-1.30); GLUCOSE 375 mg/dL (65-99); SODIUM 141 mmol/L (136-145); eGFR NON BLACK RACES > 60 (>60)
[2024-03-06 05:11] LABS: BASOPHILS % (AUTO) 0.5 % (0.2-1.0); EOSINOPHILS % (AUTO) 0.3 % (0.9-2.9); MEAN CORPUSCULAR HEMOGLOBIN 29.8 pg (27.0-34.0); MEAN CORPUSCULAR HGB CONC 33.3 g/dL (33.0-35.0); MEAN CORPUSCULAR VOLUME 89.6 fL (80.0-100.0); MEAN PLATELET VOLUME 8.9 fL (7.4-11.0); MONOCYTES # (AUTO) 1.6 x10^3/uL (0.3-0.8); MONOCYTES % (AUTO) 15.2 % (0.0-13.0); NEUTROPHILS # (AUTO) 8.3 x10^3/uL (2.2-4.8); NEUTROPHILS % (AUTO) 80.9 % (42.0-75.0); PLATELET COUNT 186 X10^3/uL (150.0-450.0); RED BLOOD COUNT 4.24 X10^6/uL (4.7-6.0); RED CELL DISTRIBUTION WIDTH 15.2 % (11.6-16.5); WHITE BLOOD COUNT 10.2 X10^3/uL (3.6-10.0)
[2024-03-06 05:59] LABS: PLATELET MORPHOLOGY COMMENT NORMAL (NORMAL)
[2024-03-06] MEDS ORDERED: XOPENEX 1.25 MG/3 ML NEBULE NEB ONE (08:05)
[2024-03-06] MEDS: NOZIN NASAL SANITIZER TP ONE (08:09)
[2024-03-06] MEDS: XOPENEX 1.25 MG/3 ML NEBULE NEB PRN (08:17)
[2024-03-06] MEDS: NS 1/2 1,000 ML IV 1,000 ML IV ONE (08:24)
[2024-03-06] MEDS: LASIX IVP ONE ×2 (08:31→08:39)
--- NOTE | 2024-03-06 08:45 | NOTE.SOAP ---
Soap Note Note for Day of Date of Exam: 03/06/24 Subjective Data Subjective Data: increased sob/wheezing Objective Data Objective Data: bp 160-76 p 100 sinus tach RR 30 mod distress lungs : junky B ,wheeze cor : tachy minimal edema labs: wbc increased to 10.2 bun/cr 26 0.84 bnp yesterday 39- cxr yest: congestion ( got lasix but still i/o up liter) Assessment Assessment: cad/htn heart/sbo/ resp distress: pna/fluidoverload Plan Plan: lasix. repeat cxr. increase antibiotics/resp therapy- cont to work on bp but dont push bb as wheezing
--- NOTE | 2024-03-06 08:53 | RAD ---
EXAM:Shortness of breathHISTORY:Chest AP portableCOMPARISON:03/05/2024FINDINGS:Th ere is a pacemaker present in the left axilla. There is a nasogastric tube coursing below the left hemidiaphragm. Its tip is not visible. There is a right-sided PICC line with its tip curled back on itself but in the expected position of the superior vena cava unchanged from the prior examination. Heart size is difficult to assess due to obscuration of the right heart border by an increasing right pleural effusion which now obscures the entire right middle and right lower lobe. Right apex is clear. Left upper lung field is clear. There is increased density in the retrocardiac area of the left lower lobe obscuring the medial left hemidiaphragm possibly due to atelectasis or infiltrate, effusion or combination. Bony thorax is unremarkable.IMPRESSION:Increasing right pleural effusion now obscuring the right middle and right lower lobesIncreasing density in the retrocardiac area of the left lower lobe obscuring the medial left hemidiaphragm. This could be due to pleural effusion, atelectasis, infiltrate, or combination.THIS IS AN ELECTRONICALLY VERIFIED FINAL REPORT03/06/2024 8:49 AM - Electronically signed by Gurjit Miller MD
[2024-03-06] MEDS ORDERED: FORTAZ or TAZICEF VIAL INJ IV SCH (09:00)
[2024-03-06] MEDS: FORTAZ or TAZICEF VIAL INJ 1 G in NS 100 ML IV 100 ML IV SCH (09:20)
[2024-03-06] MEDS: APRESOLINE INJ 20 MG VIAL IVP SCH (09:20)
--- NOTE | 2024-03-06 10:50 | RAD ---
EXAM:KUB x-ray one viewHISTORY:SBO; [id number]:X-ray 03/05/2024FINDINGS:Persistent small bowel dilation is likely unchanged. Findings are concerning for small bowel obstruction. Mild fecal material is seen in the right side of the colon. No definite colonic dilation is seen. Surgical clips are seen in the right upper quadrant of the abdomen.IMPRESSION:Persistent small bowel dilation.THIS IS AN ELECTRONICALLY VERIFIED FINAL REPORT03/06/2024 10:46 AM - Electronically signed by Calin Grace MD
[2024-03-06] MEDS: CLINIMIX 5 %/20 % 1,000 ML with MVI INJ (ADULT) 10 ML, TPN ELECTROLYTES 20 ML, POTASSIU... IV SCH (11:42)
[2024-03-06] MEDS: DRUG FILTER EXTENSION SET ONE (11:47)
--- NOTE | 2024-03-06 12:55 | PCM.PROG ---
Progress Note Progress Note for Day of Date of Exam: 03/06/24 Subjective Subjective: The patient is lying in bed this morning. He has developed some mild respiratory distress compared to yesterday. His blood pressures are improved since adding the IV Cardene since yesterday. Cardiology was consulted for cardiac clearance prior to surgery to relieve his small bowel obstruction. Echocardiogram showed he had ejection fraction of around 74%. The patient's venous is within normal limits. He did diurese with IV Lasix yesterday we will get off a liter of fluid. Repeat chest x-ray this morning shows that he has the right-sided pleural effusion still because of that cardiology thought that he will be too high risk of the patient to proceed with surgery here in [facility]. We called and discussed the patient with physicians at [facility] in [facility] and they have agreed to accept the patient to do the surgery there. We will be transferring him there later today via ambulance because the weather is not conducive to flying helicopters today. The patient also was found to have a UTI secondary to E. coli and Enterococcus aerogenes and both are susceptible to Levaquin. He is receiving IV Levaquin at this time and Fortaz was added this morning just for improved respiratory coverage just in case if the patient was developing some sort of respiratory infection given he has change in respiratory status this morning. Past Medical Family Social History Past Med/Fam/Surg Hx: No changes since H&P Allergies: Allergies Penicillins Allergy (Unknown, Verified 02/27/24 16:36) Sulfa (Sulfonamide Antibiotics) [SULFA] Allergy (Unknown, Verified 02/27/24 16:36) Review of Systems ROS: No change since H&P Vital Signs and I&O's Vital Signs: Vital Signs Temperature 99.2 F Pulse Rate 107 Pulse Rate 115 Pulse Rate 109 Pulse Rate 101 Pulse Rate 97 Pulse Rate 103 Pulse Rate 104 Pulse Rate 103 Respiratory Rate 30 Respiratory Rate 35 Respiratory Rate 35 Respiratory Rate 32 Respiratory Rate 35 Respiratory Rate 30 Respiratory Rate 24 Respiratory Rate 33 Blood Pressure 148/64 Blood Pressure 146/64 Blood Pressure 148/65 Blood Pressure 142/63 Blood Pressure 162/72 Blood Pressure 162/72 Blood Pressure 164/74 Blood Pressure 149/67 Blood Pressure 143/65 O2 Sat by Pulse Oximetry 94 O2 Sat by Pulse Oximetry 94 O2 Sat by Pulse Oximetry 94 O2 Sat by Pulse Oximetry 93 O2 Sat by Pulse Oximetry 94 O2 Sat by Pulse Oximetry 94 O2 Sat by Pulse Oximetry 93 O2 Sat by Pulse Oximetry 94 Intake and Output: Intake & Output 03/04/24 03/05/24 03/06/24 03/07/24 11:59 11:59 11:59 11:59 Intake Total 3037 / 3037 3161.9 / 3161.9 4732.1 / 4732.1 200 / 200 Output Total 2024 1135 / 1135 3160 / 3160 Balance 1012 / 1012 2026.9 / 202.9 1572.1 / 1572.1 200 / 200 Physical Exam Oriented: Normal, Time, Person and Place Eyes: Normal Ear: Normal Nose: Normal Throat: Normal Respiratory: Normal Cardiovascular: Normal Auscultation: Bowel Sounds: Decreased Tenderness: Diffuse and Other (Moderate distention with diffuse tenderness, bowel sounds still hypoactive.) Skin: Normal Musculoskeletal: Normal Psychiatric: Normal Mood Description: Calm Affect: Normal Speech Pattern: Clear and Appropriate Laboratory and Diagnostics 03/06/24 04:13 03/06/24 04:13 Labs: 03/04/24 14:35 Urine,Clean Catch Urine Culture - Final Escherichia Coli Enterobacter Aerogenes Laboratory WBC 10.2 X10^3/uL (3.6-10.0) H 03/06/24 04:13 RBC 4.24 X10^6/uL (4.7-6.0) L 03/06/24 04:13 Hgb 12.6 g/dL (13.5-18.0) L 03/06/24 04:13 Hct 38.0 % (42.0-54.0) L 03/06/24 04:13 MCV 89.6 fL (80.0-100.0) 03/06/24 04:13 MCH 29.8 pg (27.0-34.0) 03/06/24 04:13 MCHC 33.3 g/dL (33.0-35.0) 03/06/24 04:13 RDW 15.2 % (11.6-16.5) 03/06/24 04:13 Plt Count 186 X10^3/uL (150.0-450.0) 03/06/24 04:13 Plt Count Comment Adequate (ADEQUATE) 03/06/24 04:13 MPV 8.9 fL (7.4-11.0) 03/06/24 04:13 Neut % (Auto) 80.9 % (42.0-75.0) H 03/06/24 04:13 Lymph % (Auto) 3.1 % (21.0-51.0) L 03/06/24 04:13 [place] % (Auto) 15.2 % (0.0-13.0) H 03/06/24 04:13 Eos % (Auto) 0.3 % (0.9-2.9) L 03/06/24 04:13 Baso % (Auto) 0.5 % (0.2-1.0) 03/06/24 04:13 Neut # (Auto) 8.3 x10^3/uL (2.2-4.8) H 03/06/24 04:13 Lymph # (Auto) 0.3 X10^3/uL (1.3-2.9) L 03/06/24 04:13 [place] # (Auto) 1.6 x10^3/uL (0.3-0.8) H 03/06/24 04:13 Eos # (Auto) 0.0 x10^3/uL (0.0-0.2) 03/06/24 04:13 Baso # (Auto) 0.1 X10^3/uL (0.0-0.1) 03/06/24 04:13 Absolute Nucleated RBC 0.1 /100WBC 03/06/24 04:13 Total Counted 100 03/06/24 04:13 Neutrophils % (Manual) 70 % (39-76) 03/06/24 04:13 Band Neutrophils % 2 % (0-10) 03/05/24 04:13 Lymphocytes % (Manual) 12 % (13-43) L 03/06/24 04:13 Monocytes % (Manual) 18 % (4-9) H 03/06/24 04:13 Eosinophils % (Manual) 3 % (0-6) 03/05/24 04:13 Atypical Lymphocytes Few 03/02/24 04:40 Plt Morphology Comment Normal (NORMAL) 03/06/24 04:13 RBC Morphology Normal (NORMAL) 03/06/24 04:13 Sodium 141 mmol/L (136-145) 03/06/24 04:13 Corrected Sodium 148 mmol/L (136-145) H 03/06/24 04:13 Potassium 4.0 mmol/L (3.5-5.1) 03/06/24 04:13 Chloride 106 mmol/L (98-107) 03/06/24 04:13 Carbon Dioxide 29.6 mmol/L (21-32) 03/06/24 04:13 BUN 26 mg/dL (7-18) H 03/06/24 04:13 Creatinine 0.84 mg/dL (0.70-1.30) 03/06/24 04:13 Est GFR (MDRD) Af Amer > 60 (>60) 03/06/24 04:13 Est GFR (MDRD) Non-Af > 60 (>60) 03/06/24 04:13 Glucose 375 mg/dL (65-99) H 03/06/24 04:13 POC Glucose (mg/dL) 409 mg/dL (65-99) H 03/06/24 07:06 Lactic Acid 1.5 mmol/L (0.4-2.0) 03/06/24 09:00 Calcium 8.5 mg/dL (8.5-10.1) 03/06/24 04:13 Corrected Calcium 9.6 mg/dL (8.5-10.1) 03/05/24 04:13 Phosphorus 1.5 mg/dL (2.6-4.7) L 03/05/24 04:13 Magnesium 2.2 mg/dL (2.0-2.9) 03/05/24 04:13 Total Bilirubin 0.30 mg/dL (0.2-1.0) 03/05/24 04:13 AST 27 Units/L (15-37) 03/05/24 04:13 ALT 34 Units/L (12-78) 03/05/24 04:13 Alkaline Phosphatase 53 Units/L (46-116) 03/05/24 04:13 B-Natriuretic Peptide 33.4 pg/mL (0-79) 03/06/24 04:13 Total Protein 6.1 g/dL (6.4-8.2) L 03/05/24 04:13 Albumin 2.3 g/dL (3.4-5.0) L 03/05/24 04:13 Globulin 3.8 g/dL (2.5-4.5) 03/05/24 04:13 Albumin/Globulin Ratio 0.6 Ratio (1.1-2.1) L 03/05/24 04:13 Prealbumin 13.2 mg/dL (18-35.7) L 03/03/24 04:20 Triglycerides 44 mg/dL (0-150) 03/05/24 04:13 Amylase 76 Units/L (25-115) 02/27/24 18:35 Lipase 38 Units/L (16-77) 02/27/24 18:35 Specimen Type Catherized urine 03/04/24 14:35 Urine Color Red (YELLOW) 03/04/24 14:35 Urine Appearance Turbid (CLEAR) 03/04/24 14:35 Urine pH 7.0 (5.0 - 8.0) 03/04/24 14:35 Ur Specific [place] 1.015 (1.000-1.030) 03/04/24 14:35 Urine Protein 4+ (NEGATIVE) 03/04/24 14:35 Urine Glucose (UA) 4+ (NEGATIVE) 03/04/24 14:35 Urine Ketones 1+ (NEGATIVE) 03/04/24 14:35 Urine Blood 5+ (NEGATIVE) 03/04/24 14:35 Urine Nitrite Positive (NEGATIVE) 03/04/24 14:35 Urine Bilirubin 1+ (NEGATIVE) 03/04/24 14:35 Urine Urobilinogen Normal (NORMAL) 03/04/24 14:35 Ur Leukocyte Esterase 2+ (NEGATIVE) 03/04/24 14:35 Urine RBC Tntc /HPF (0-3) A 03/04/24 14:35 Urine WBC 0-2 /HPF (0-5) 03/04/24 14:35 Ur Squamous Epith Cells Negative /HPF (NEGATIVE) 03/04/24 14:35 Amorphous Sediment Trace /HPF (NEGATIVE) 02/28/24 15:45 Urine Bacteria 4+ /HPF (NEGATIVE) 03/04/24 14:35 Hyaline Casts Few /LPF (NEGATIVE) 02/28/24 15:45 Urine Mucus Few /HPF (NEGATIVE) 02/28/24 15:45 Ur Culture Indicated? Yes/culture set up 03/04/24 14:35 Radiology Reviewed: Yes Plan (1) Small bowel obstruction: Status: Acute Plan: The patient will be transferred to [facility] for surgery for small bowel obstruction because he is becoming a high-risk patient secondary to his onset of respiratory distress this morning. (2) Hypertension: Status: Chronic Qualifiers: Hypertension type: primary hypertension Qualified Code(s): I10 - Essential (primary) hypertension Plan: Continue transcutaneous clonidine 0.3 mg weekly, IV enalaprilat, IV Lopressor and IV hydralazine. We are going to add IV Cardene this morning per protocol for improved blood pressure control today. (3) Dyslipidemia: Status: Chronic Plan: Hold statins at this time (4) Controlled type 2 diabetes mellitus without complication: Status: Chronic Qualifiers: Diabetes mellitus technician terminal and repeater insulin use: with technician terminal and repeater use Qualified Code(s): E11.9 - Type 2 diabetes mellitus without complications; Z79.4 - manager terminal (current) use of insulin Plan: Slight scale regular insulin per protocol (5) Pleural effusion on right: Status: Acute Plan: Lasix 60 mg IV x 1 this morning. (6) UTI (urinary tract infection): Status: Acute Narrative Support Text: Patient is positive for E. coli and Enterobacter aerogenes with both being susceptible to Levaquin. Plan: Continue Levaquin 500 milligrams IV daily.
[2024-03-06 13:03] VITALS: TEMP 98.5
[2024-03-06 14:06] VITALS: BP 153/67; PULSE 98; RESP 33; O2SAT 94
== END 2024-03-06 15:04 | disposition short-term general hospital (02) | DRG 389 ==
LOC: ER 16:17 → ICU 20:49
PROVIDERS: ADMIT Surgery; ATTEND Surgery